=== PATIENT | male | born 1945 | race Caucasian/White ===

== ENCOUNTER 2020-04-08 17:00 | Inpatient (IN) | payer MEDICAID, MEDICARE ==
[~2020-04-08] VITALS: Ht 148 cm; Wt 61.7 kg
[2020-04-08] MEDS ORDERED: levETIRAcetam IV 500 MG in IV DEXTROSE 5% 100 ML IV ONE (17:30)
[2020-04-08] MEDS ORDERED: LORAZEPAM 2 MG/1 ML VIAL ONE ×2 (17:36→20:58)
[2020-04-08] MEDS ORDERED: LORAZEPAM 2 MG/1 ML VIAL IV ONE (17:45)
--- NOTE | 2020-04-08 18:04 | NUR ---
PT IS IN ROOM #2A. DR LAM EVALUATED THE PT.
[2020-04-08] MEDS ORDERED: ASCO500C18 PO (18:10)
[2020-04-08] MEDS ORDERED: CHOL10002 PO (18:10)
[2020-04-08] MEDS ORDERED: LORA-258 PO (18:10)
[2020-04-08] MEDS ORDERED: ALLO100T PO (18:10)
[2020-04-08] MEDS ORDERED: LEVE1000 PO (18:10)
[2020-04-08] MEDS ORDERED: FAMO-132 PO (18:10)
[2020-04-08] MEDS ORDERED: MELA3TAB41 PO (18:10)
[2020-04-08] MEDS ORDERED: ACET650S13 RC (18:10)
[2020-04-08] MEDS ORDERED: BISA10SU61 RC (18:10)
[2020-04-08] MEDS ORDERED: ATOR40TA PO (18:10)
[2020-04-08] MEDS ORDERED: CARV12.5 PO (18:10)
[2020-04-08] MEDS ORDERED: THIA100T13 PO (18:10)
[2020-04-08] MEDS ORDERED: ZINC1CAP2 PO (18:10)
[2020-04-08 18:11] LABS: BASOPHILS % (AUTO) 0.2 % (0.0-2.0); HEMATOCRIT 42.4 % (36.7-47.1); HEMOGLOBIN 13.4 g/dL (12.5-16.3); LYMPHOCYTES # (AUTO) 0.9 K/uL (20.0-40.0); LYMPHOCYTES % (AUTO) 4.3 % (20.5-51.5); MEAN CORPUSCULAR HGB CONC 32 g/dL (32.5-36.3); MEAN CORPUSCULAR VOLUME 94.6 fL (73.0-96.2); MONOCYTES # (AUTO) 1.1 K/uL (2.0-10.0); MONOCYTES % (AUTO) 5.7 % (0.0-11.0); NEUTROPHILS # (AUTO) 17.8 K/uL (1.8-8.9); NEUTROPHILS % (AUTO) 89.8 % (38.5-71.5); PLATELET COUNT (AUTO) 97 K/uL (152-348); RED BLOOD CELL COUNT(AUTO) 4.48 MIL/uL (4.06-5.63); WHITE BLOOD COUNT (AUTO) 19.8 K/uL (3.6-10.2)
[2020-04-08 18:20] LABS: CARBON DIOXIDE 17 mmol/L (21-32); CHLORIDE 105 mmol/L (98-107); CREATININE 2.6 mg/dL (0.6-1.3); GLUCOSE 151 mg/dL (74-106); POTASSIUM 4.5 mmol/L (3.5-5.1); UREA NITROGEN, BLOOD 27 mg/dL (7-18)
[2020-04-08 18:32] LABS: ALANINE AMINOTRANSFERASE 29 U/L (16-63); ALKALINE PHOSPHATASE 97 U/L (50-136); ASPARTATE AMINOTRANSFERASE 23 U/L (15-37); BILIRUBIN,TOTAL 0.5 mg/dL (0.2-1.0); TOTAL PROTEIN, SERUM 6.8 g/dL (6.4-8.2)
[2020-04-08] MEDS ORDERED: IV NORMAL SALINE 500 ML IV ONE ×2 (19:00→20:45)
[2020-04-08] MEDS ORDERED: PIPERACILLIN SODIUM/TAZOBACTAM 3.375 G in IV DEXTROSE 5% 50 ML IV ONE (19:00)
--- NOTE | 2020-04-08 19:04 | NUR ---
REPORT GIVEN TO WINDOWS DESKTOP ENGINEER MENDEZ MACDONALD.
[2020-04-08] MEDS ORDERED: PIPERACILLIN/TAZOBACTAM/D5W 50 ML IV ONE (19:10)
--- NOTE | 2020-04-08 20:31 | NUR ---
Report given to Marj SIMMS Medsurg.
[2020-04-08] MEDS ORDERED: FOSPHENYTOIN SODIUM 1,000 MG in IV NORMAL SALINE 100 ML IV ONE (21:00)
[2020-04-08] MEDS ORDERED: LORAZEPAM 2 MG/1 ML VIAL IV PRN (21:00)
[2020-04-08 21:12] LABS: *BLOOD, URINE NEGATIVE (NEGATIVE); *CLARITY,URINE CLEAR (CLEAR); *COLOR,URINE YELLOW (YELLOW); *KETONES,URINE 1+ (NEGATIVE); *UROBILINOGEN,URINE 0.2 E.U./dl (NORMAL); LEUKOCYTE ESTERASE ,URINE NEGATIVE (NEGATIVE); NITRITE, URINE NEGATIVE (NEGATIVE); PH,URINE 5.5 (5.0-8.0); UGLUCOSE NEGATIVE (NEGATIVE)
[2020-04-08 21:15] LABS: *BILIRUBIN,URIN 1+ (NEGATIVE)
[2020-04-08] MEDS ORDERED: PHENYTOIN SODIUM IV 1,000 MG in IV NORMAL SALINE 100 ML IV ONE (21:15)
[2020-04-08 21:18] LABS: BACTERIA,URINE FEW /HPF (NONE SEEN); RBC,URINE 0-3 /HPF (0-3); SQUAMOUS EPITHELIAL CELL,UR MANY /HPF (NONE SEEN); WBC,URINE 0-3 /HPF (0-3)
[2020-04-08] MEDS ORDERED: PHENYTOIN SODIUM 250 MG/5 ML VIAL IV ONE (21:24)
--- NOTE | 2020-04-08 22:00 | NUR ---
RECEIVED PT FROM ER VIA [facility]. UNDER THE CARE OF DR. FINNEGAN. PT IN 4L OXYGEN. DETENTION ASSESSMENT DONE. PT SKIN ISSUES PUT ON THE CHART. SAFETY AND COMFORT PROVIDED. ADMISSION PROCESS AND CARE PLAN INITIATED. WILL CONTINUE TO MONITOR.
[2020-04-08 23:07] VITALS: BP 110/68
[2020-04-09] MEDS ORDERED: VANCOMYCIN IV 1,000 MG in IV DEXTROSE 5% 250 ML IV ONE ×2 (00:15→21:00)
[2020-04-09] MEDS ORDERED: IV NS 1000 ML 1,000 ML IV SCH (00:15)
[2020-04-09] MEDS ORDERED: VANCOMYCIN IV 200 ML ONE (00:28)
[2020-04-09] MEDS ORDERED: PIPERACILLIN/TAZOBACTAM/D5W 50 ML IV ONE (00:48)
[2020-04-09 00:57] VITALS: BP 110/55
[2020-04-09 04:52] VITALS: BP 91/40
[2020-04-09] MEDS ORDERED: PIPERACILLIN SODIUM/TAZOBACTAM 3.375 G in IV DEXTROSE 5% 50 ML IV ONE (06:00)
[2020-04-09] MEDS ORDERED: BISACODYL 10 MG SUPP.RECT RC PRN (06:30)
[2020-04-09] MEDS ORDERED: LORAZEPAM 0.5 MG TABLET PO PRN (06:30)
[2020-04-09] MEDS: IV NS 1000 ML 1,000 ML IV PRN ×2 (06:32→12:58)
--- NOTE | 2020-04-09 06:45 | NUR ---
PT IN NO ACUTE RESPIRATORY DISTRESS. IV INTACT. PRESCRIBED MEDICATION GIVEN AND PT TOLERATED IT WELL. PT TURNED AND REPOSITIONED. SAFETY AND COMFORT PROVIDED. ALL NEEDS ARE MET. WILL ENDORSE TO INCOMING NURSE FOR CONTINUITY OF CARE.
[2020-04-09] MEDS ORDERED: FAMOTIDINE 20 MG TABLET PO SCH (07:30)
--- NOTE | 2020-04-09 08:41 | NUR ---
LACTIC ACID LEVEL IS 2.9 TRENDING DOWN TO DESIRED DIRECTION
[2020-04-09] MEDS ORDERED: PIPERACILLIN SODIUM/TAZOBACTAM 3.375 G in IV DEXTROSE 5% 50 ML IV SCH (09:00)
--- NOTE | 2020-04-09 09:00 | NUR ---
DR CONSTANTINO HERE TO SEE PATIENT WITH ORDER FOR ABG AND NOTED
[2020-04-09] MEDS: ASCORBIC ACID 500 MG TABLET PO SCH ×2 (09:12→21:20)
[2020-04-09] MEDS: ZINC SULFATE 220 MG CAPSULE PO SCH (09:13)
[2020-04-09] MEDS: FAMOTIDINE 20 MG TABLET PO SCH (09:13)
[2020-04-09] MEDS: CHOLECALCIFEROL 1,000 UNIT TABLET PO SCH (09:13)
[2020-04-09] MEDS: CARVEDILOL 12.5 MG TABLET PO SCH ×2 (09:14→21:20)
[2020-04-09] MEDS: levETIRAcetam 500 MG TABLET PO SCH ×2 (09:19→21:20)
[2020-04-09] MEDS: ALLOPURINOL 100 MG TABLET PO SCH (09:20)
[2020-04-09 09:39] LABS: BASOPHILS # (AUTO) 0.1 K/uL (0.0-8.0); LYMPHOCYTES # (AUTO) 1.7 K/uL (20.0-40.0); MEAN CORPUSCULAR HGB CONC 33 g/dL (32.5-36.3); MONOCYTES # (AUTO) 1.6 K/uL (2.0-10.0)
[2020-04-09 09:41] LABS: BASOPHILS % (AUTO) 0.5 % (0.0-2.0); EOSINOPHILS % (AUTO) 0.1 % (0.0-7.0); HEMATOCRIT 38.2 % (36.7-47.1); HEMOGLOBIN 12.5 g/dL (12.5-16.3); LYMPHOCYTES % (AUTO) 9.3 % (20.5-51.5); MEAN CORPUSCULAR VOLUME 94.5 fL (73.0-96.2); MONOCYTES % (AUTO) 8.7 % (0.0-11.0); NEUTROPHILS # (AUTO) 14.9 K/uL (1.8-8.9); NEUTROPHILS % (AUTO) 81.4 % (38.5-71.5); PLATELET COUNT (AUTO) 51 K/uL (152-348); RED BLOOD CELL COUNT(AUTO) 4.04 MIL/uL (4.06-5.63); WHITE BLOOD COUNT (AUTO) 18.3 K/uL (3.6-10.2)
[2020-04-09 09:52] LABS: ABG HCO3 17.7 mmol/L; ABG PCO2 30.1 mmHg (35.0-45.0); ABG PH 7.388 (7.350-7.450); ABG SITE LEFT RADIAL; ABG TOTAL HEMOGLOBIN 13.1 G/dL (13.5-18.0); COHb 0.5 % (0.5-1.5); MetHb 0.2 % (0.0-1.5); O2Hb 97.3 % (94.0-97.0); VENT MODE Nasal Cannula
[2020-04-09 09:55] LABS: CARBON DIOXIDE 22 mmol/L (21-32); CHLORIDE 113 mmol/L (98-107); CREATININE 1.6 mg/dL (0.6-1.3); GLUCOSE 71 mg/dL (74-106); MAGNESIUM 1.6 mg/dL (1.8-2.4); PHOSPHOROUS 3.3 mg/dL (2.5-4.9); POTASSIUM 4.7 mmol/L (3.5-5.1); UREA NITROGEN, BLOOD 29 mg/dL (7-18)
--- NOTE | 2020-04-09 10:21 | NUR ---
RESULT OF ABD WAS GIVEN TO DR CONSTANTINO BY THE RT WITH NO NEW ORDERS AT THIS TIME
[2020-04-09 10:32] LABS: BAND % (MANUAL) 2 % (0-10); LYMPHOCYTES % (MANUAL) 8 % (20-40); MONOCYTES % (MANUAL) 9 % (2-10); NEUTROPHILS % (MANUAL) 81 % (42-75)
--- NOTE | 2020-04-09 11:14 | NUR ---
Clinical Pharmacy Note: Vancomycin Dosing per Pharmacy Subjective: Vancomycin IV to start on this 74 yo patient for r/o sepsis Objective: BUN 29/Scr 1.6 WBC 18.3 Temperature 98.3 ht 123.8 cm wt 44.6 kg Assessment/Plan: Due to unstable srcr, will dose by random level. patient received vanco 1gm IVPB x1 today at 0100. Will check vanco random level tonight at 1800. Pharmacy will review & check vanco random level at 1800 & dose further if needed. Will follow daily. Addendum: 04/09/20 at 2051 by TESSIE LEWIS VANCOMYCIN LEVEL @ 1800 WAS 13.4. Will dose another Vancomycin 1 gm x 1 @ 2100 tonight.
[2020-04-09] MEDS ORDERED: DOSING BY PHARMACY-MD TO SPECIFY MED/ROUTE XX PRN (11:15)
[2020-04-09 12:03] VITALS: BP 93/65
[2020-04-09] MEDS ORDERED: MEROPENEM 500 MG in IV NORMAL SALINE 50 ML IV SCH (14:00)
[2020-04-09 16:03] VITALS: BP 102/51
--- NOTE | 2020-04-09 18:00 | NUR ---
PATIENT HAS TENDENCY TO REMOVE MASKS REAPPLIED HE IS ON FIRST STEP CHEN TURNED AND REPOSITIONED MADE COMFORTABLE
--- NOTE | 2020-04-09 19:30 | NUR ---
RECEIVED PT IN NO ACUTE DISTRESS. IV INTACT. SAFETY AND COMFORT PROVIDED. WILL CONTINUE TO MONITOR.
[2020-04-09 20:39] VITALS: BP 108/39
[2020-04-09] MEDS ORDERED: CEFEPIME HCL 1 G in IV DEXTROSE 5% 50 ML IV SCH (21:00)
[2020-04-09] MEDS: MELATONIN 3 MG TABLET PO SCH (21:20)
[2020-04-09] MEDS: ATORVASTATIN 40 MG TABLET PO SCH (21:20)
[2020-04-09] MEDS: THIAMINE HCL 100 MG TABLET PO SCH (21:20)
--- NOTE | 2020-04-09 23:00 | NUR ---
DR. GONZALEZ WAS NOTIFIED REGARDING THE RESULT OF THE COVID TEST IS NEGATIVE.
[2020-04-10] VITALS: BP 118/58
[2020-04-10] MEDS: IV NS 1000 ML 1,000 ML IV PRN ×2 (02:31→21:54)
[2020-04-10 05:00] VITALS: BP 120/59
--- NOTE | 2020-04-10 06:38 | NUR ---
PT IN NO ACUTE DISTRESS. PRESCRIBED MEDICATION GIVEN AND PT TOLERATED IT WELL. SAFETY AND COMFORT PROVIDED. PT TURNED AND REPOSITIONED. ALL NEEDS ARE MET. WILL ENDORSE TO INCOMING NURSE FOR CONTINUITY OF CARE.
[2020-04-10] MEDS: CHOLECALCIFEROL 1,000 UNIT TABLET PO SCH (08:25)
[2020-04-10] MEDS: levETIRAcetam 500 MG TABLET PO SCH ×2 (08:26→21:09)
[2020-04-10] MEDS: ZINC SULFATE 220 MG CAPSULE PO SCH (08:26)
[2020-04-10] MEDS: THIAMINE HCL 100 MG TABLET PO SCH ×2 (08:26→21:09)
[2020-04-10] MEDS: ASCORBIC ACID 500 MG TABLET PO SCH ×2 (08:27→21:10)
[2020-04-10] MEDS: FAMOTIDINE 20 MG TABLET PO SCH (08:27)
[2020-04-10] MEDS: ALLOPURINOL 100 MG TABLET PO SCH (08:27)
[2020-04-10] MEDS: CARVEDILOL 12.5 MG TABLET PO SCH ×2 (08:29→18:07)
[2020-04-10] MEDS ORDERED: CEFEPIME HCL 1 G in IV DEXTROSE 5% 50 ML IV ONE (10:00)
--- NOTE | 2020-04-10 11:22 | NUR ---
Clinical Pharmacy Note: Vancomycin Dosing per Pharmacy Subjective: Vancomycin IV to continue on this 74 yo patient for r/o sepsis Objective: BUN 29/Scr 1.6 (04/09) WBC 18.3 (04/09) Temperature 98.3 Vanco random level on 04/09 at 1800: 13.4 ht 123.8 cm wt 44.6 kg Assessment/Plan: Due to unstable srcr, will dose by random level. Patient received vanco 1gm IVPB x1 last night for vanco trough level of 13.4 mcg/ml. Per RN, patient hard stick & lab was unable to draw blood for labs.. Will check vanco random level tomorrow for further dosing. Will follow daily.
[2020-04-10 12:00] VITALS: BP 130/64
--- NOTE | 2020-04-10 18:57 | NUR ---
Received patient awake in bed in bed in stable condition. Respiratory mask change to nasal cannula at 4LPM. MD Garza notified. Patient remove IV site. dry paste supervisor made aware. For reinsertion of midline. not in distress. will continue monitor.no complaint/signs of pain/discomfort noted. afebrile. will continue monitor
--- NOTE | 2020-04-10 20:30 | NUR ---
Patient transferred from 2nd floor. Patient is awake. Patient has no s/s of SOB or respiratory distress. Patient has no s/s of pain. Patient is afebrile. Belonging list reviewed. Safety measures in place. Will continue with the plan of care.
[2020-04-10 20:55] VITALS: BP 114/82
[2020-04-10] MEDS: ATORVASTATIN 40 MG TABLET PO SCH (21:09)
[2020-04-10] MEDS: MELATONIN 3 MG TABLET PO SCH (21:10)
[2020-04-11 00:58] VITALS: BP 120/58
[2020-04-11 04:00] VITALS: BP 110/64
--- NOTE | 2020-04-11 06:25 | NUR ---
Pt in bed resting, In no acute signs of distress, No s/s of pain. Bed alarm on. IV fluids infusing, V pacing on tele/ HR 91.
[2020-04-11] MEDS: CARVEDILOL 12.5 MG TABLET PO SCH ×3 (08:00→17:23)
[2020-04-11 08:05] VITALS: BP 134/42
[2020-04-11] MEDS: THIAMINE HCL 100 MG TABLET PO SCH ×3 (08:34→21:13)
[2020-04-11] MEDS: levETIRAcetam 500 MG TABLET PO SCH ×2 (08:34→09:00)
[2020-04-11] MEDS: ZINC SULFATE 220 MG CAPSULE PO SCH ×2 (08:34→09:00)
[2020-04-11] MEDS: CHOLECALCIFEROL 1,000 UNIT TABLET PO SCH ×2 (08:35→09:00)
[2020-04-11] MEDS: ASCORBIC ACID 500 MG TABLET PO SCH ×3 (08:35→21:13)
[2020-04-11] MEDS: ALLOPURINOL 100 MG TABLET PO SCH ×2 (08:35→09:00)
[2020-04-11] MEDS ORDERED: CEFEPIME HCL 1 G in IV DEXTROSE 5% 50 ML IV SCH (09:00)
[2020-04-11] MEDS: FAMOTIDINE 20 MG TABLET PO SCH (09:00)
[2020-04-11 11:33] LABS: BASOPHILS # (AUTO) 0.1 K/uL (0.0-8.0); BASOPHILS % (AUTO) 0.4 % (0.0-2.0); EOSINOPHILS # (AUTO) 0.2 K/uL (0.0-0.7); EOSINOPHILS % (AUTO) 0.8 % (0.0-7.0); HEMATOCRIT 36.3 % (36.7-47.1); HEMOGLOBIN 11.6 g/dL (12.5-16.3); LYMPHOCYTES # (AUTO) 0.9 K/uL (20.0-40.0); LYMPHOCYTES % (AUTO) 5.1 % (20.5-51.5); MEAN CORPUSCULAR HEMOGLOBIN 30.3 uug (23.8-33.4); MEAN CORPUSCULAR HGB CONC 32 g/dL (32.5-36.3); MEAN CORPUSCULAR VOLUME 95.2 fL (73.0-96.2); MONOCYTES # (AUTO) 1.4 K/uL (2.0-10.0); MONOCYTES % (AUTO) 7.5 % (0.0-11.0); NEUTROPHILS # (AUTO) 15.9 K/uL (1.8-8.9); NEUTROPHILS % (AUTO) 86.2 % (38.5-71.5); PLATELET COUNT (AUTO) 55 K/uL (152-348); RED BLOOD CELL COUNT(AUTO) 3.81 MIL/uL (4.06-5.63); WHITE BLOOD COUNT (AUTO) 18.4 K/uL (3.6-10.2)
[2020-04-11 11:56] LABS: BILIRUBIN,TOTAL 0.6 mg/dL (0.2-1.0); CREATININE 1.2 mg/dL (0.6-1.3); MAGNESIUM 1.7 mg/dL (1.8-2.4); PHOSPHOROUS 2.9 mg/dL (2.5-4.9); POTASSIUM 4.1 mmol/L (3.5-5.1); TOTAL PROTEIN, SERUM 6.1 g/dL (6.4-8.2); VANCOMYCIN,RANDOM 13.7 ug/mL (18.0-26.0)
[2020-04-11 11:57] VITALS: BP 119/48
[2020-04-11 12:34] LABS: EOSINOPHILS % (MANUAL) 1 % (0-8); LYMPHOCYTES % (MANUAL) 7 % (20-40); MONOCYTES % (MANUAL) 4 % (2-10); NEUTROPHILS % (MANUAL) 88 % (42-75)
[2020-04-11] MEDS: levETIRAcetam IV 1,000 MG in IV DEXTROSE 5% 100 ML IV SCH ×2 (12:53→21:12)
[2020-04-11] MEDS: IV D5 1/2 NS 1000 ML 1,000 ML IV PRN (12:55)
[2020-04-11] MEDS: MAGNESIUM SULFATE/D5W 100 ML IV SCH ×2 (13:40→14:37)
--- NOTE | 2020-04-11 14:01 | NUR ---
Clinical Pharmacy Note: Vancomycin Dosing per Pharmacy Subjective: Vancomycin IV to continue on this 74 yo patient for sepsis Objective: BUN 26/Scr 1.2 WBC 18.4 Temperature 98.6 Vanco random level on 04/11 at 1045: 13.7(ordered at 0600 but hard stick, so tried again at 1045) ht 123.8 cm wt 44.6 kg Assessment/Plan: Due to unstable srcr, will continue to dose by random level. Since Vancomycin random level is under 20, will administer 750mg IV (scheduled to give at 1530 after magnesium IV) x1 today and draw another random tomorrow at 0600 with am labs. Will follow the level for further dosing.
[2020-04-11 15:01] VITALS: BP 111/50
[2020-04-11] MEDS ORDERED: VANCOMYCIN IV 750 MG in IV DEXTROSE 5% 250 ML IV ONE (15:30)
[2020-04-11] MEDS ORDERED: CARISOPRODOL 350 MG TABLET PO SCH (17:15)
--- NOTE | 2020-04-11 20:00 | NUR ---
RECEIVED PT VERBALLY NONRESPONSIVE, OPENS HER EYES TO ANY STIMULI & FOLLOWS TO COMMAND.ON O2 @ 4LNC W/ O2 SAT 94%.IVF D51/2NS @ 75CC/HR VIA MIDLINE ON [place]. REPOSITIONED W/ HOB ELEVATED.
[2020-04-11 20:12] VITALS: BP 124/58
--- NOTE | 2020-04-11 20:20 | NUR ---
CLINICAL PHARMACY NOTE:GENTAMICIN DOSING Request for gentamicin dosing on 74 y/o male 123.83cm 54.99kg for UTI Temp 98.6 BUN 26 Scr 1.2 WBC 18.4 urine culture ESBL E coli sensitive to gentamicin Start Gentamicin 60mg ivpb q12h estimated peak 6.2 trough 1.48. Will order trough and peak levels around 4 th dose. Will continue to monitor
[2020-04-11] MEDS: GENTAMICIN SULFATE INJ 60 MG in IV DEXTROSE 5% 50 ML IV SCH (21:11)
[2020-04-11] MEDS: ATORVASTATIN 40 MG TABLET PO SCH (21:12)
[2020-04-11] MEDS: MELATONIN 3 MG TABLET PO SCH (21:13)
--- NOTE | 2020-04-11 23:00 | NUR ---
HS CARE DONE ORAL CARE DONE. REPOSITIONED W/ HOB ELEVATED.
[2020-04-12 00:04] VITALS: BP 124/53
[2020-04-12 04:00] VITALS: BP 127/47
[2020-04-12] MEDS: IV D5 1/2 NS 1000 ML 1,000 ML IV PRN (05:31)
--- NOTE | 2020-04-12 06:00 | NUR ---
PT IS CONGESTED & GURGLING, SUCTIONED INTRANASALLY & ORALLY W/ BROWNISH MUCOUS MOD. AMT. ORAL CARE DONE. REPOSITIONED ON HIS SIDE W/ HOB ELEVATED.
--- NOTE | 2020-04-12 06:30 | NUR ---
CALLED DR. FINNEGAN EXCHANGE LEFT THE MESSAGE RE: THE COFFEE GROUND MUCOUS.
[2020-04-12 07:08] LABS: CREATININE 1.2 mg/dL (0.6-1.3); MAGNESIUM 2.1 mg/dL (1.8-2.4); POTASSIUM 3.3 mmol/L (3.5-5.1)
[2020-04-12 07:12] LABS: BASOPHILS # (AUTO) 0.1 K/uL (0.0-8.0); BASOPHILS % (AUTO) 0.7 % (0.0-2.0); EOSINOPHILS # (AUTO) 0.2 K/uL (0.0-0.7); HEMATOCRIT 36.5 % (36.7-47.1); HEMOGLOBIN 11.6 g/dL (12.5-16.3); LYMPHOCYTES # (AUTO) 0.8 K/uL (20.0-40.0); LYMPHOCYTES % (AUTO) 4.6 % (20.5-51.5); MEAN CORPUSCULAR HEMOGLOBIN 30.3 uug (23.8-33.4); MEAN CORPUSCULAR HGB CONC 32 g/dL (32.5-36.3); MEAN CORPUSCULAR VOLUME 95.3 fL (73.0-96.2); MONOCYTES # (AUTO) 1.1 K/uL (2.0-10.0); MONOCYTES % (AUTO) 6.4 % (0.0-11.0); NEUTROPHILS # (AUTO) 15.4 K/uL (1.8-8.9); NEUTROPHILS % (AUTO) 87.3 % (38.5-71.5); PLATELET COUNT (AUTO) 61 K/uL (152-348); RED BLOOD CELL COUNT(AUTO) 3.82 MIL/uL (4.06-5.63); WHITE BLOOD COUNT (AUTO) 17.7 K/uL (3.6-10.2)
--- NOTE | 2020-04-12 07:50 | NUR ---
Received patient in bed, open eyes. On 4L via nasal canula, saturating 96%. No sign of Pain or discomfort. IVF infusing well on [place] midline. Kept clean and comfortable. Will continue to monitor.
[2020-04-12 07:56] LABS: BAND % (MANUAL) 2 % (0-10); EOSINOPHILS % (MANUAL) 1 % (0-8); LYMPHOCYTES % (MANUAL) 9 % (20-40); MONOCYTES % (MANUAL) 6 % (2-10); NEUTROPHILS % (MANUAL) 82 % (42-75)
[2020-04-12] MEDS: FAMOTIDINE 20 MG TABLET PO SCH (09:07)
[2020-04-12] MEDS: CARVEDILOL 12.5 MG TABLET PO SCH ×2 (09:07→17:19)
[2020-04-12] MEDS: levETIRAcetam IV 1,000 MG in IV DEXTROSE 5% 100 ML IV SCH ×2 (09:07→20:28)
[2020-04-12] MEDS: THIAMINE HCL 100 MG TABLET PO SCH ×2 (09:08→20:28)
[2020-04-12] MEDS: ALLOPURINOL 100 MG TABLET PO SCH (09:08)
[2020-04-12] MEDS: CHOLECALCIFEROL 1,000 UNIT TABLET PO SCH (09:08)
[2020-04-12] MEDS: ASCORBIC ACID 500 MG TABLET PO SCH ×2 (09:08→20:28)
[2020-04-12] MEDS: ZINC SULFATE 220 MG CAPSULE PO SCH (09:08)
--- NOTE | 2020-04-12 09:30 | NUR ---
Patient noted with Poor PO intake, Dr. Upton made aware.
[2020-04-12] MEDS: GENTAMICIN SULFATE INJ 60 MG in IV DEXTROSE 5% 50 ML IV SCH ×2 (09:46→20:58)
[2020-04-12 11:29] VITALS: BP 124/50
[2020-04-12] MEDS ORDERED: POTASSIUM PHOSPHATE MM 7.5 MMOL in IV NORMAL SALINE 97.5 ML IV ONE (11:30)
--- NOTE | 2020-04-12 12:52 | NUR ---
CLINICAL PHARMACY NOTE:GENTAMICIN DOSING To continue gentamicin dosing on 74 y/o male 123.83cm 54.99kg for UTI (esbl e coli) Temp 98.3 BUN 18 Scr 1.2 WBC 17.7 urine culture ESBL E coli sensitive to gentamicin Will continue Gentamicin 60mg ivpb q12h estimated peak 6.2 trough 1.48. Will order trough and peak levels around 4 th dose, due tomorrow at 0830 and 1000 respectively. Will coordinate with RN/lab around tomorrow's dose and check levels when available. To adjust as appropriate following results. Will monitor
[2020-04-12 15:13] VITALS: BP 101/64
--- NOTE | 2020-04-12 18:04 | NUR ---
Patient in bed, open eyes, On oxygen at 3L via Nasal canula, saturating 94%. No signs of Pain or discomfort. Patient noted with congestion, Suctioned mouth PRN. Kept clean and comfortable. All due medications given as ordered. Will endorse to Oncoming Nurse.
--- NOTE | 2020-04-12 19:20 | NUR ---
Received patient lying in bed. Response non-verbally to tactile stimuli. In no acute distress. On O2 at 3LPM via NC in place. 100% V pacing on tele at 77/min. Left upper arm midline intact and patent. IVF infusing. No seizure episode noted at this time. Seizure precaution observed. Safety measure initiated and call ivory within reached.
[2020-04-12 20:09] VITALS: BP 119/51
[2020-04-12] MEDS: ATORVASTATIN 40 MG TABLET PO SCH (20:28)
[2020-04-12] MEDS: MELATONIN 3 MG TABLET PO SCH (20:29)
[2020-04-13 00:03] VITALS: BP 126/68
[2020-04-13 00:06] VITALS: BP 117/64
[2020-04-13] MEDS: IV D5 1/2 NS 1000 ML 1,000 ML IV PRN (00:14)
[2020-04-13 04:12] VITALS: BP 116/48
--- NOTE | 2020-04-13 06:07 | NUR ---
Non-verbally responsive and opens his eyes to tactile stimuli. In no acute distress. On O2 at 4LPM via NC in place. 100% V pacing on tele at 87/min. Left upper arm midline intact and patent. IVF infusing. o adverse reaction noted from IV ABX. No seizure episode noted at this time. Seizure precaution maintained. Aspiration precaution observed. Suction secretions PRN. Safety measure maintained and call ivory within reached.
[2020-04-13] MEDS ORDERED: GENTAMICIN SULFATE INJ 70 MG in IV DEXTROSE 5% 50 ML IV SCH (08:00)
--- NOTE | 2020-04-13 08:00 | NUR ---
Patient in bed, open eyes. Non Verbal. noted with congestion. Suctioned PRN. No signs of Pain or discomfort. Kept clean and comfortable. remains on Seizure Precaution. Will continue to monitor.
[2020-04-13] MEDS: CHOLECALCIFEROL 1,000 UNIT TABLET PO SCH (08:39)
[2020-04-13] MEDS: ALLOPURINOL 100 MG TABLET PO SCH (08:39)
[2020-04-13] MEDS: THIAMINE HCL 100 MG TABLET PO SCH (08:39)
[2020-04-13] MEDS: FAMOTIDINE 20 MG TABLET PO SCH (08:39)
[2020-04-13] MEDS: ASCORBIC ACID 500 MG TABLET PO SCH (08:39)
[2020-04-13] MEDS: ZINC SULFATE 220 MG CAPSULE PO SCH (08:39)
[2020-04-13] MEDS: CARVEDILOL 12.5 MG TABLET PO SCH ×2 (08:39→18:32)
[2020-04-13] MEDS: levETIRAcetam IV 1,000 MG in IV DEXTROSE 5% 100 ML IV SCH ×2 (08:49→20:15)
[2020-04-13] MEDS: GENTAMICIN SULFATE INJ 60 MG in IV DEXTROSE 5% 50 ML IV SCH (09:08)
[2020-04-13 09:18] LABS: BILIRUBIN,TOTAL 0.3 mg/dL (0.2-1.0); MAGNESIUM 1.8 mg/dL (1.8-2.4); POTASSIUM 3.4 mmol/L (3.5-5.1); TOTAL PROTEIN, SERUM 5.5 g/dL (6.4-8.2)
[2020-04-13 09:21] LABS: BASOPHILS # (AUTO) 0.1 K/uL (0.0-8.0); BASOPHILS % (AUTO) 0.5 % (0.0-2.0); EOSINOPHILS # (AUTO) 0.1 K/uL (0.0-0.7); EOSINOPHILS % (AUTO) 0.4 % (0.0-7.0); HEMOGLOBIN 11.4 g/dL (12.5-16.3); LYMPHOCYTES % (AUTO) 5.8 % (20.5-51.5); MEAN CORPUSCULAR HEMOGLOBIN 29.8 uug (23.8-33.4); MEAN CORPUSCULAR HGB CONC 32 g/dL (32.5-36.3); MONOCYTES # (AUTO) 0.9 K/uL (2.0-10.0); MONOCYTES % (AUTO) 5.2 % (0.0-11.0); NEUTROPHILS # (AUTO) 15.9 K/uL (1.8-8.9); NEUTROPHILS % (AUTO) 88.1 % (38.5-71.5); RED BLOOD CELL COUNT(AUTO) 3.83 MIL/uL (4.06-5.63)
[2020-04-13 10:12] LABS: BAND % (MANUAL) 5 % (0-10); LYMPHOCYTES % (MANUAL) 5 % (20-40); MONOCYTES % (MANUAL) 4 % (2-10); NEUTROPHILS % (MANUAL) 86 % (42-75)
[2020-04-13 10:22] LABS: PLATELET COUNT (AUTO) 62 K/uL (152-348)
--- NOTE | 2020-04-13 10:56 | NUR ---
CLINICAL PHARMACY NOTE:GENTAMICIN DOSING S: To continue gentamicin dosing on 74 y/o male for UTI (esbl e coli) O: Temp 98.3 BUN 11 Scr 1.0 WBC 18 Gentamicin trough level on 04/13 at 0830: 2.8 Gentamicin Peak level on 04/13 at 1000: 8.4 ht 124cm wt 56 kg urine culture ESBL E coli sensitive to gentamicin Plan Since gentamicin trough is supra-therapeutic, will change dose to Gentamicin 70 mg IVPB q23h for estimated peak of 6.8 mcg/ml & trough of 0.98 mcg/ml at steady state. 1st dose tomorrow at 1100. Will order trough and peak levels around 3rd dose (not yet ordered). Will monitor
[2020-04-13 11:47] VITALS: BP 99/43
[2020-04-13] MEDS ORDERED: POTASSIUM PHOSPHATE MM 15 MMOL in IV NORMAL SALINE 250 ML IV ONE (13:00)
--- NOTE | 2020-04-13 14:00 | NUR ---
Seen by Dr burden and relayed that ST seen patient with recommendation to keep patient NPO and may insert NGT.
[2020-04-13 15:34] VITALS: BP 106/55
--- NOTE | 2020-04-13 16:00 | NUR ---
Patient with RD recommendation regarding NGT Feeding, Glucerna 1.2 at 60cc/hr x 22 hours.
[2020-04-13] MEDS: POTASSIUM CHLORIDE 40 MEQ in IV D5 1/2 NS 1000 ML 1,000 ML IV PRN (17:08)
--- NOTE | 2020-04-13 18:20 | NUR ---
Received a confirmed NGT placement form ROSETTE, started NGT Feeding.
[2020-04-13] MEDS: GLUCERNA 1.2 1000ML LIQUID NG PRN (18:28)
--- NOTE | 2020-04-13 18:39 | NUR ---
Patient in bed, open eyes. Suctioned PRN for secretion and congestion. Saturating 94% on 4L via Nasal Canula. No signs of Pain or discomfort. Afebrile. All due medications given as ordered. Kept clean and comfortable. Will endorse to Oncoming Nurse.
--- NOTE | 2020-04-13 19:20 | NUR ---
Received patient lying in bed. Response non-verbally to tactile stimuli, only mumbles at times. In no acute distress. On O2 at 4LPM via NC in place. 100% V pacing on tele at 87/min. Left upper arm midline intact and patent. IVF infusing. NGT intact and patent. Glucerna 1.2 at 60/min infusing via NGT. No seizure episode noted at this time. Seizure precaution observed. Safety measure initiated and call ivory within reached.
[2020-04-13] MEDS ORDERED: LORAZEPAM 0.5 MG TABLET NG PRN (19:55)
[2020-04-13 20:08] VITALS: BP 124/59
[2020-04-13] MEDS: THIAMINE HCL 100 MG TABLET NG SCH (20:15)
[2020-04-13] MEDS: ATORVASTATIN 40 MG TABLET NG SCH (20:16)
[2020-04-13] MEDS: ASCORBIC ACID 500 MG TABLET NG SCH (20:16)
[2020-04-13] MEDS: MELATONIN 3 MG TABLET NG SCH (20:16)
[2020-04-14 00:08] VITALS: BP 121/61
[2020-04-14 04:12] VITALS: BP 127/74
--- NOTE | 2020-04-14 05:07 | NUR ---
photonics engineering technologist/[place] at bedside for CXR.
--- NOTE | 2020-04-14 06:08 | NUR ---
Response non-verbally to tactile stimuli, only mumbles at times. In no acute distress. On O2 at 4LPM via NC in place. O2 sat at 92%. 100% V pacing on tele at 96/min. Left upper arm midline intact and patent. IVF infusing. NGT intact and patent. Glucerna 1.2 at 60/min infusing via NGT. Suction secretions PRN. HOB kept elevated. Aspiration precaution maintained. No seizure episode noted at this time. Seizure precaution maintained. Safety measure maintained and call ivory within reached.
--- NOTE | 2020-04-14 07:30 | NUR ---
RECIEVED PT LYING IN BED, SLIGHTLY OBTUNDED BUT OPENS EYES TO DEEP PAIN AND SUCTIONING. HR IS 100% V PACED WITH UNDERLYING SR. PT HAS VERY AUDIBLE INSPIRATORY AND EXPIRATORY CRACLES, MORE OF THROATY NOICE. SUCTION SECRETIONS ORALLY AAND OBTAINED LARGE AMOUNT OF WHITISH LIQUIDS THAT LOOKS LIKE THE FEEDING. O2 SATURATION IS 98% ON 4L, DECREASED IT DOWN TO 2L AND STILL SATURATING 99%. AFEBRILE. PT IS GENERALLY WEAK.
[2020-04-14 07:53] LABS: BASOPHILS % (AUTO) 0.2 % (0.0-2.0); EOSINOPHILS # (AUTO) 0.3 K/uL (0.0-0.7); EOSINOPHILS % (AUTO) 1.5 % (0.0-7.0); HEMATOCRIT 39.7 % (36.7-47.1); HEMOGLOBIN 12.6 g/dL (12.5-16.3); LYMPHOCYTES # (AUTO) 0.9 K/uL (20.0-40.0); LYMPHOCYTES % (AUTO) 5.5 % (20.5-51.5); MEAN CORPUSCULAR HEMOGLOBIN 30.1 uug (23.8-33.4); MEAN CORPUSCULAR HGB CONC 32 g/dL (32.5-36.3); MEAN CORPUSCULAR VOLUME 94.4 fL (73.0-96.2); MONOCYTES # (AUTO) 0.8 K/uL (2.0-10.0); MONOCYTES % (AUTO) 4.8 % (0.0-11.0); NEUTROPHILS # (AUTO) 15.1 K/uL (1.8-8.9); PLATELET COUNT (AUTO) 60 K/uL (152-348); WHITE BLOOD COUNT (AUTO) 17.1 K/uL (3.6-10.2)
[2020-04-14 08:22] LABS: CREATININE 1.1 mg/dL (0.6-1.3); MAGNESIUM 1.7 mg/dL (1.8-2.4); PHOSPHOROUS 2.9 mg/dL (2.5-4.9); POTASSIUM 4.2 mmol/L (3.5-5.1)
[2020-04-14 08:30] VITALS: BP 160/55
--- NOTE | 2020-04-14 08:30 | NUR ---
PT HAS NGT ON THE LEFT NARES, IN PLACE. ABDOMEN IS DISTENDED AND HYPOACTIVE. CHHECKED RESIDUALS AND OBTAAINED ABOUT 400 ML OF FEEDING TUBE LIQUIDS. HOLD THE TUBE FEEDING AND MD IS AWARE.
[2020-04-14] MEDS: ALLOPURINOL 100 MG TABLET NG SCH (08:49)
[2020-04-14] MEDS: ZINC SULFATE 220 MG CAPSULE NG SCH (08:49)
[2020-04-14] MEDS: FAMOTIDINE 20 MG TABLET NG SCH (08:49)
[2020-04-14] MEDS: THIAMINE HCL 100 MG TABLET NG SCH ×2 (08:50→20:39)
[2020-04-14] MEDS: CHOLECALCIFEROL 1,000 UNIT TABLET NG SCH (08:50)
[2020-04-14] MEDS: ASCORBIC ACID 500 MG TABLET NG SCH ×2 (08:50→20:39)
[2020-04-14] MEDS: levETIRAcetam IV 1,000 MG in IV DEXTROSE 5% 100 ML IV SCH ×2 (08:51→20:39)
[2020-04-14] MEDS: CARVEDILOL 12.5 MG TABLET NG SCH ×2 (08:51→17:38)
--- NOTE | 2020-04-14 10:30 | NUR ---
CLINICAL PHARMACY NOTE:GENTAMICIN DOSING S: To continue gentamicin dosing on 74 y/o male for UTI (esbl e coli) O: Temp 98.1 BUN 10 Scr 1.1 WBC 17.1 Gentamicin trough level on 04/13 at 0830: 2.8 Gentamicin Peak level on 04/13 at 1000: 8.4 ht 124cm wt 56 kg urine culture ESBL E coli sensitive to gentamicin Plan Will continue same dose of Gentamicin 70 mg IVPB q23h for estimated peak of 6.8 mcg/ml & trough of 0.98 mcg/ml at steady state. 1st dose today at 1100. Will order trough and peak levels around 3rd dose (ordered for 04/16 at 0830 & 1000- pharmacist to communicate to nurse/lab). Will monitor
[2020-04-14] MEDS: POTASSIUM CHLORIDE 40 MEQ in IV D5 1/2 NS 1000 ML 1,000 ML IV PRN (10:44)
--- NOTE | 2020-04-14 11:00 | NUR ---
MAGNESIUM CHLORIDE 2 GMS IVPB GIVEN REPLACEMENT PER MD ORDER. PT IS REPOSITIONED AT FREQUENT INTERVALS.
[2020-04-14] MEDS: MAGNESIUM SULFATE/D5W 100 ML IV SCH ×2 (11:20→13:02)
[2020-04-14] MEDS: GENTAMICIN SULFATE INJ 70 MG in IV DEXTROSE 5% 50 ML IV SCH (11:21)
[2020-04-14 12:00] VITALS: BP 120/56
[2020-04-14 16:14] VITALS: BP 103/57
--- NOTE | 2020-04-14 17:30 | NUR ---
RESTARTED THE TUBE FEEDING AT 20ML/HR AT THIS TIME.
[2020-04-14] MEDS ORDERED: PIPERACILLIN SODIUM/TAZOBACTAM 3.375 G in IV DEXTROSE 5% 50 ML IV SCH (18:30)
[2020-04-14] MEDS: PIPERACILLIN/TAZOBACTAM/D5W 3.375 G in IV DEXTROSE 5% 50 ML IV SCH (19:47)
--- NOTE | 2020-04-14 20:00 | NUR ---
RECEIVED VERBALLY NONRESPONSIVE W/ GOOD EYE CONTACT. ON O2 @ 2LNC W/ O2 SAT OF 97%. IVF D51/NS W/ 40MEQ KCL @ 75CC/HR VIA MIDLINE ON [place]. NGT ON L NARE CHECKED PLACEMENT & CHECKED RESIDUAL 10CC NOTED TUBE FDG OF GLUCERNA 1.2 @ 20CC/HR.. REPOSITIONED PT ON HER SIDE AFTER CLEANED, INCONT OF URINE, NO BM NOTED.
[2020-04-14 20:38] VITALS: BP 112/72
[2020-04-14] MEDS: ATORVASTATIN 40 MG TABLET NG SCH (20:39)
[2020-04-14] MEDS: MELATONIN 3 MG TABLET NG SCH (20:40)
--- NOTE | 2020-04-14 23:00 | NUR ---
SUCTIONED PT INTRANASALLY & ORALLY W/ THICK YELLOWISH BLOOD TINGED MUCOUS MOD. AMT. REPOSITIONED W/ HOB ELEVATED CONT.
--- NOTE | 2020-04-15 | NUR ---
CHECKED NGT RESIDUAL 5CC NOTED, INCREASED TUBE FDG RATE TO 30CC/HR.
[2020-04-15 00:15] VITALS: BP 120/48
[2020-04-15] MEDS: POTASSIUM CHLORIDE 40 MEQ in IV D5 1/2 NS 1000 ML 1,000 ML IV PRN (03:53)
[2020-04-15 04:00] VITALS: BP 124/76
[2020-04-15] MEDS: PIPERACILLIN/TAZOBACTAM/D5W 3.375 G in IV DEXTROSE 5% 50 ML IV SCH ×3 (04:13→20:15)
--- NOTE | 2020-04-15 06:00 | NUR ---
SUCTIONED ORALLY & INTRANASALLY W/ MOD THICK YELLOWISH MUCOUS.
[2020-04-15 07:21] LABS: BASOPHILS # (AUTO) 0.1 K/uL (0.0-8.0); BASOPHILS % (AUTO) 0.5 % (0.0-2.0); EOSINOPHILS # (AUTO) 0.3 K/uL (0.0-0.7); EOSINOPHILS % (AUTO) 1.7 % (0.0-7.0); HEMATOCRIT 36.8 % (36.7-47.1); HEMOGLOBIN 11.8 g/dL (12.5-16.3); LYMPHOCYTES # (AUTO) 0.9 K/uL (20.0-40.0); LYMPHOCYTES % (AUTO) 5.6 % (20.5-51.5); MEAN CORPUSCULAR HEMOGLOBIN 30.2 uug (23.8-33.4); MEAN CORPUSCULAR HGB CONC 32 g/dL (32.5-36.3); MEAN CORPUSCULAR VOLUME 94.5 fL (73.0-96.2); MONOCYTES # (AUTO) 0.8 K/uL (2.0-10.0); MONOCYTES % (AUTO) 4.6 % (0.0-11.0); NEUTROPHILS # (AUTO) 14.9 K/uL (1.8-8.9); NEUTROPHILS % (AUTO) 87.6 % (38.5-71.5); PLATELET COUNT (AUTO) 86 K/uL (152-348)
[2020-04-15 07:38] LABS: CREATININE 1.1 mg/dL (0.6-1.3); MAGNESIUM 2.1 mg/dL (1.8-2.4); PHOSPHOROUS 1.9 mg/dL (2.5-4.9); POTASSIUM 5.4 mmol/L (3.5-5.1)
[2020-04-15 08:00] VITALS: BP 141/72
--- NOTE | 2020-04-15 08:30 | NUR ---
PT IS RESTING COMFORTABLY. OPENS EYES ONLY BUT NON VERBAL. HR [id number]% NO APPARENT RESPIRATORY DISTRESS NOTED. SUCTION SECRETIONS ORALLY LARGE AMOUNT.
[2020-04-15 08:39] LABS: BAND % (MANUAL) 1 % (0-10); LYMPHOCYTES % (MANUAL) 9 % (20-40); NEUTROPHILS % (MANUAL) 85 % (42-75)
[2020-04-15 08:40] LABS: EOSINOPHILS % (MANUAL) 1 % (0-8); MONOCYTES % (MANUAL) 4 % (2-10)
[2020-04-15] MEDS: FAMOTIDINE 20 MG TABLET NG SCH (09:28)
[2020-04-15] MEDS: THIAMINE HCL 100 MG TABLET NG SCH ×2 (09:29→21:04)
[2020-04-15] MEDS: CARVEDILOL 12.5 MG TABLET NG SCH ×2 (09:29→18:29)
[2020-04-15] MEDS: ZINC SULFATE 220 MG CAPSULE NG SCH (09:29)
[2020-04-15] MEDS: CHOLECALCIFEROL 1,000 UNIT TABLET NG SCH (09:29)
[2020-04-15] MEDS: ASCORBIC ACID 500 MG TABLET NG SCH ×2 (09:29→21:04)
[2020-04-15] MEDS: ALLOPURINOL 100 MG TABLET NG SCH (09:29)
[2020-04-15] MEDS: levETIRAcetam IV 1,000 MG in IV DEXTROSE 5% 100 ML IV SCH ×2 (09:31→20:58)
[2020-04-15] MEDS: GENTAMICIN SULFATE INJ 70 MG in IV DEXTROSE 5% 50 ML IV SCH (09:31)
[2020-04-15] MEDS: IV D5 1/2 NS 1000 ML 1,000 ML IV PRN (09:56)
--- NOTE | 2020-04-15 10:39 | NUR ---
CLINICAL PHARMACY NOTE:GENTAMICIN DOSING S: To continue gentamicin dosing on 74 y/o male for UTI (esbl e coli) O: Temp 98.1 BUN 10 Scr 1.1 WBC 17.0 Gentamicin trough level on 04/13 at 0830: 2.8 Gentamicin Peak level on 04/13 at 1000: 8.4 ht 124cm wt 56 kg urine culture ESBL E coli sensitive to gentamicin Plan Will continue same dose of Gentamicin 70 mg IVPB q23h for estimated peak of 6.8 mcg/ml & trough of 0.98 mcg/ml at steady state. 2nd dose today at 1000. Will order trough and peak levels around 3rd dose (ordered for 04/16 at 0830 & 1000- pharmacist to communicate to nurse/lab in am). Will monitor
[2020-04-15 12:00] VITALS: BP 128/57
[2020-04-15] MEDS ORDERED: DEXTROSE 5% IV ONE (15:15)
[2020-04-15] MEDS ORDERED: SODIUM PHOSPHATE MM IV ONE (15:15)
[2020-04-15 16:00] VITALS: BP 121/58
--- NOTE | 2020-04-15 18:30 | NUR ---
SEEN AND EXAMINED BY CARMEN LEBLANC TO REPEAT URINE CULTURE. ENDORSED IT TO THE NIGHT RN.
[2020-04-15 20:07] VITALS: BP 104/65
[2020-04-15] MEDS: ATORVASTATIN 40 MG TABLET NG SCH (21:04)
[2020-04-15] MEDS: MELATONIN 3 MG TABLET NG SCH (21:04)
[2020-04-16 00:08] VITALS: BP 110/68
[2020-04-16] MEDS: PIPERACILLIN/TAZOBACTAM/D5W 3.375 G in IV DEXTROSE 5% 50 ML IV SCH ×3 (03:50→20:58)
[2020-04-16 06:36] VITALS: BP 112/74
[2020-04-16 07:00] LABS: BASOPHILS % (AUTO) 0.2 % (0.0-2.0); EOSINOPHILS # (AUTO) 0.4 K/uL (0.0-0.7); EOSINOPHILS % (AUTO) 2.2 % (0.0-7.0); HEMATOCRIT 36.8 % (36.7-47.1); HEMOGLOBIN 11.8 g/dL (12.5-16.3); LYMPHOCYTES # (AUTO) 0.7 K/uL (20.0-40.0); LYMPHOCYTES % (AUTO) 4.5 % (20.5-51.5); MEAN CORPUSCULAR HGB CONC 32 g/dL (32.5-36.3); MEAN CORPUSCULAR VOLUME 93.8 fL (73.0-96.2); MONOCYTES # (AUTO) 0.8 K/uL (2.0-10.0); MONOCYTES % (AUTO) 5.3 % (0.0-11.0); NEUTROPHILS # (AUTO) 13.8 K/uL (1.8-8.9); NEUTROPHILS % (AUTO) 87.8 % (38.5-71.5); PLATELET COUNT (AUTO) 61 K/uL (152-348); RED BLOOD CELL COUNT(AUTO) 3.92 MIL/uL (4.06-5.63); WHITE BLOOD COUNT (AUTO) 15.7 K/uL (3.6-10.2)
[2020-04-16 07:07] LABS: CREATININE 1.2 mg/dL (0.6-1.3); MAGNESIUM 1.8 mg/dL (1.8-2.4); PHOSPHOROUS 3.6 mg/dL (2.5-4.9); POTASSIUM 4.5 mmol/L (3.5-5.1)
--- NOTE | 2020-04-16 07:30 | NUR ---
RECEIVED PATIENT IN BED WITH HOB ELEVATED AND ASLEEP,. PATIENT HAS NGTUBE AND ON TUBE FEEDING WITH GLUCERNA 1.2 AT 40 ML/HR AND ABLE TO TOLERATE WELL WITH TUBE FEEDING. NO SOB NOTED AT THIS TIME. KEPT CLEAN AND DRY AT ALL TIMES. SAFETY AND COMFORT PROVIDED. NO C/O PAIN AT THIS TIME. WILL CONTINUE TO MONITOR.
[2020-04-16] MEDS: levETIRAcetam IV 1,000 MG in IV DEXTROSE 5% 100 ML IV SCH ×2 (08:31→21:32)
[2020-04-16] MEDS: ASCORBIC ACID 500 MG TABLET NG SCH ×2 (08:31→21:52)
[2020-04-16] MEDS: THIAMINE HCL 100 MG TABLET NG SCH ×2 (08:32→21:51)
[2020-04-16] MEDS: CHOLECALCIFEROL 1,000 UNIT TABLET NG SCH (08:32)
[2020-04-16] MEDS: ZINC SULFATE 220 MG CAPSULE NG SCH (08:32)
[2020-04-16] MEDS: FAMOTIDINE 20 MG TABLET NG SCH (08:32)
[2020-04-16] MEDS: ALLOPURINOL 100 MG TABLET NG SCH (08:32)
[2020-04-16] MEDS: CARVEDILOL 12.5 MG TABLET NG SCH ×2 (08:46→17:10)
[2020-04-16] MEDS: GENTAMICIN SULFATE INJ 70 MG in IV DEXTROSE 5% 50 ML IV SCH (09:00)
[2020-04-16] MEDS: GLUCERNA 1.2 1000ML LIQUID NG PRN (09:07)
[2020-04-16 12:00] VITALS: BP 120/67
[2020-04-16] MEDS: IV D5 1/2 NS 1000 ML 1,000 ML IV PRN (13:16)
--- NOTE | 2020-04-16 14:35 | NUR ---
CLINICAL PHARMACY NOTE:GENTAMICIN DOSING S: To continue gentamicin dosing on 74 y/o male for UTI (esbl e coli) O: Temp 97.9 BUN 13 Scr 1.2 WBC 15.7 Gentamicin trough level on 04/13 at 0830: 2.8 Gentamicin Peak level on 04/13 at 1000: 8.4 Gentamicin trough level 04/16 @ 0830: 1.2 Gentamicin peak level on 04/16 @ 1000: 8.2 ht 124cm wt 56 kg urine culture ESBL E coli sensitive to gentamicin Plan Based on levels, adjusted gentamicin regimen to 50mg q22hr for new estimated trough and peak of 6.2 and 0.9 respectively. First dose will be tomorrow 04/17 @0800. Will follow and order peak and trough at 3rd dose (not ordered yet). Will follow
[2020-04-16 15:18] VITALS: BP 112/67
--- NOTE | 2020-04-16 18:13 | NUR ---
PATIENT IN BED WITH HOB ELEVATED AND ASLEEP. PATIENT HAS NGTUBE AND ON TUBE FEEDING WITH GLUCERNA 1.2 at 40 ML/HR , INCREASED IT TO 50ML/HR AND ABLE TO TOLERATE WELL WITH TUBE FEEDING. NO SOB NOTED AT THIS TIME. PROVIDED SUCTION NEEDED. KEPT CLEAN AND DRY AT ALL TIMES. SAFETY AND COMFORT PROVIDED. NO C/O PAIN AT THIS TIME. WILL CONTINUE TO MONITOR.
[2020-04-16 20:21] VITALS: BP 113/54
--- NOTE | 2020-04-16 20:30 | NUR ---
Patient pulled out his NGT. Charge nurse made aware and reinserted new NGT x 1 attempt w/ no complications. Will order xray to confirm placement
--- NOTE | 2020-04-16 20:31 | NUR ---
Patient also noted congested w/ a lot of secretions, deep suctioning done by RT. Patient noted relieved
--- NOTE | 2020-04-16 20:50 | NUR ---
Patient's CXR came back and confirmed proper placement of NGT. NGT feeding Glucerna 1.2 @ 60cc/hr restarted. HOB kept elevated for aspiration precautions. Patient noted w/ a lot of secretions in his mouth, frequent suctioning and oral care done.
[2020-04-16] MEDS: ATORVASTATIN 40 MG TABLET NG SCH (21:51)
[2020-04-16] MEDS: MELATONIN 3 MG TABLET NG SCH (21:51)
[2020-04-17 00:06] VITALS: BP 106/48
[2020-04-17] MEDS: IV D5 1/2 NS 1000 ML 1,000 ML IV PRN (01:46)
[2020-04-17] MEDS: PIPERACILLIN/TAZOBACTAM/D5W 3.375 G in IV DEXTROSE 5% 50 ML IV SCH ×3 (03:37→20:06)
[2020-04-17 04:43] VITALS: BP 110/64
--- NOTE | 2020-04-17 06:38 | NUR ---
Patient slept intermittently. On O2 at 2lpm via NC, saturating at 97%. Vpacing on Tele monitor. NGT feeding tolerated well. [place] midline intact and patent w/ IVF infusing. Oral care and suctioning done. Turned and repositioned. Will endorse accordingly
--- NOTE | 2020-04-17 07:30 | NUR ---
RECEIVED PATIENT IN BED WITH HOB ELEVATED AND ASLEEP. PATIENT HAS NEW NG TUBE INSERTED AND ON TUBE FEEDING WITH GLUCERNA 1.2 RUNNING AT 60 ML/HR AND ABLE TO TOLERATE WELL. NO SOB NOTED AT THIS TIME. NO C/O PAIN AT THIS TIME. AFEBRILE. KEPT CLEAN AND DRY AT ALL TIMES. SAFETY AND COMFORT PROVIDED. NO C/O PAIN AT THIS TIME. WILL CONTINUE TO MONITOR.
[2020-04-17] MEDS: GENTAMICIN SULFATE IV SCH (07:56)
[2020-04-17] MEDS: DEXTROSE 5% IV SCH (07:56)
[2020-04-17] MEDS: ALLOPURINOL 100 MG TABLET NG SCH (08:00)
[2020-04-17] MEDS: CHOLECALCIFEROL 1,000 UNIT TABLET NG SCH (08:00)
[2020-04-17] MEDS: THIAMINE HCL 100 MG TABLET NG SCH ×2 (08:00→20:06)
[2020-04-17] MEDS: ASCORBIC ACID 500 MG TABLET NG SCH ×2 (08:00→20:07)
[2020-04-17] MEDS: ZINC SULFATE 220 MG CAPSULE NG SCH (08:00)
[2020-04-17] MEDS: CARVEDILOL 12.5 MG TABLET NG SCH ×2 (08:00→17:39)
[2020-04-17] MEDS: FAMOTIDINE 20 MG TABLET NG SCH (08:00)
[2020-04-17] MEDS: levETIRAcetam IV 1,000 MG in IV DEXTROSE 5% 100 ML IV SCH ×2 (08:49→20:06)
--- NOTE | 2020-04-17 08:58 | NUR ---
CLINICAL PHARMACY NOTE:GENTAMICIN DOSING S: To continue gentamicin dosing on 74 y/o male for UTI (esbl e coli) O: Temp 98 BUN 13 (04/16) Scr 1.2 (04/16) WBC 15.7 (04/16) Gentamicin trough level on 04/13 at 0830: 2.8 Gentamicin Peak level on 04/13 at 1000: 8.4 Gentamicin trough level 04/16 @ 0830: 1.2 Gentamicin peak level on 04/16 @ 1000: 8.2 ht 124cm wt 56 kg urine culture ESBL E coli sensitive to gentamicin Plan Will continue same dose of gentamicin 50mg IVPB q22hr for new estimated trough and peak of 6.2 and 0.9 respectively. 2nd dose will be tomorrow 04/18 @0600. Will follow and order peak and trough at 3rd dose (not ordered yet). Will follow
[2020-04-17 11:40] VITALS: BP 115/67
[2020-04-17] MEDS: GLUCERNA 1.2 1000ML LIQUID NG PRN (12:18)
[2020-04-17 15:33] VITALS: BP 132/66
--- NOTE | 2020-04-17 18:06 | NUR ---
PATIENT IN BED WITH HOB ELEVATED WITH NG TUBE AND TUBE FEEDING WITH GLUCERNA 1.2 RUNNING AT 60 ML/HR AND ABLE TO TOLERATE WELL. NO SOB NOTED AT THIS TIME. SUCTION NEEDED DUE TO SECRETIONS. NO C/O PAIN AT THIS TIME. AFEBRILE. KEPT CLEAN AND DRY AT ALL TIMES. SAFETY AND COMFORT PROVIDED. NO C/O PAIN AT THIS TIME. WILL CONTINUE TO MONITOR
--- NOTE | 2020-04-17 19:20 | NUR ---
Patient received in bed, sleeping, easy to arouse. Patient has no s/s of acute distress. Patient has no s/s of pain. Patient is on NGT glucerna 1.2 running at 60cc. Patient is on 2L NC setting at 95%. Patient has Left upper midline, patent and intact. Vitals are stable. Safety measures in place. Bed low and locked position. Will continue with the plan of care.
[2020-04-17 20:00] VITALS: BP 112/61
[2020-04-17] MEDS: FLUCONAZOLE 100 MG TABLET PO SCH (20:07)
[2020-04-17] MEDS: ATORVASTATIN 40 MG TABLET NG SCH (20:07)
[2020-04-17] MEDS: MELATONIN 3 MG TABLET NG SCH (20:07)
[2020-04-18] VITALS: BP 109/51
[2020-04-18] MEDS: PIPERACILLIN/TAZOBACTAM/D5W 3.375 G in IV DEXTROSE 5% 50 ML IV SCH ×3 (03:13→20:27)
[2020-04-18 04:00] VITALS: BP 136/71
--- NOTE | 2020-04-18 06:28 | NUR ---
Patient pulled out NGT. Attempted to reinsert x1 but unsuccessful. Dr. Maldonado here and made aware and said will try to talk to family for possible PEG placement. Patient failed his previous Swallow eval as per ST.
--- NOTE | 2020-04-18 06:39 | NUR ---
Patient slept intermittently throughout the night. Patient is awake, no s/s of acute distress or pain. Patient is on 3L NC and setting WNL. Patient's vitals stable. L upper midline is patent and intact. Incontinence care provided. Needs attended. Safety measure in place. Bed low and locked in position. Will endorse to the oncoming nurse accordingly.
[2020-04-18] MEDS: DEXTROSE 5% IV SCH (06:42)
[2020-04-18] MEDS: GENTAMICIN SULFATE IV SCH (06:42)
--- NOTE | 2020-04-18 07:20 | NUR ---
Reinserted JEFERSON taylor Fr 16 tube on right nares without any issues. Ordered CXR for placement. Addendum: 04/18/20 at 0801 by FRANCIA GRESHAM RN inserted to 70cm
[2020-04-18] MEDS: CARVEDILOL 12.5 MG TABLET NG SCH ×2 (08:00→18:35)
[2020-04-18 08:13] LABS: BASOPHILS # (AUTO) 0.1 K/uL (0.0-8.0); BASOPHILS % (AUTO) 0.2 % (0.0-2.0); EOSINOPHILS % (AUTO) 0.2 % (0.0-7.0); HEMATOCRIT 33.1 % (36.7-47.1); LYMPHOCYTES # (AUTO) 0.8 K/uL (20.0-40.0); MEAN CORPUSCULAR HEMOGLOBIN 30.4 uug (23.8-33.4); MEAN CORPUSCULAR HGB CONC 33 g/dL (32.5-36.3); MEAN CORPUSCULAR VOLUME 91.1 fL (73.0-96.2); MONOCYTES # (AUTO) 1.8 K/uL (2.0-10.0); NEUTROPHILS # (AUTO) 22.7 K/uL (1.8-8.9); NEUTROPHILS % (AUTO) 89.6 % (38.5-71.5); PLATELET COUNT (AUTO) 114 K/uL (152-348); RED BLOOD CELL COUNT(AUTO) 3.64 MIL/uL (4.06-5.63); WHITE BLOOD COUNT (AUTO) 25.4 K/uL (3.6-10.2)
[2020-04-18 08:32] LABS: ALANINE AMINOTRANSFERASE 52 U/L (16-63); ALKALINE PHOSPHATASE 135 U/L (50-136); ASPARTATE AMINOTRANSFERASE 63 U/L (15-37); BILIRUBIN,TOTAL 0.2 mg/dL (0.2-1.0); CARBON DIOXIDE 27 mmol/L (21-32); CHLORIDE 103 mmol/L (98-107); CREATININE 1.4 mg/dL (0.6-1.3); GLUCOSE 178 mg/dL (74-106); MAGNESIUM 1.9 mg/dL (1.8-2.4); PHOSPHOROUS 2.8 mg/dL (2.5-4.9); POTASSIUM 4.2 mmol/L (3.5-5.1); TOTAL PROTEIN, SERUM 5.8 g/dL (6.4-8.2); UREA NITROGEN, BLOOD 23 mg/dL (7-18)
--- NOTE | 2020-04-18 09:06 | NUR ---
CLINICAL PHARMACY NOTE:GENTAMICIN DOSING S: To continue gentamicin dosing on 74 y/o male for UTI (esbl e coli) O: Temp 98 BUN 13 (04/16) Scr 1.2 (04/16) WBC 15.7 (04/16) Gentamicin trough level on 04/13 at 0830: 2.8 Gentamicin Peak level on 04/13 at 1000: 8.4 Gentamicin trough level 04/16 @ 0830: 1.2 Gentamicin peak level on 04/16 @ 1000: 8.2 ht 124cm wt 56 kg urine culture ESBL E coli sensitive to gentamicin Gentamicin trough level 04/19 @ 0330 pending Gentamicin peak level 04/19@ 0500 pending Plan Will continue same dose of gentamicin 50mg IVPB q22hr for new estimated trough and peak of 6.2 and 0.9 respectively. 2nd dose was today 04/18 @0600. Will follow and order peak and trough at 3rd dose (due tomorrow 04/19 early am at 0500 and 0330 respectively). Lab endorsed to coordinate with RN for levels. Will endorse night RN for levels as well. Will follow levels when available and adjust as needed.
[2020-04-18] MEDS: levETIRAcetam IV 1,000 MG in IV DEXTROSE 5% 100 ML IV SCH ×2 (09:36→20:19)
--- NOTE | 2020-04-18 10:36 | NUR ---
Meds and Feeding not given since awaiting results for CXR for NGT placement. Results were need withdrawal of enteric tube 6cm suggested. Ordered another CXR after withdrawal
[2020-04-18 11:16] VITALS: BP 137/70
--- NOTE | 2020-04-18 13:25 | NUR ---
Reinserted another NG tube since pt pulled it again . Fr 14 at 55cm, will order CXR for placement. Pt tolerated well
[2020-04-18] MEDS: FLUCONAZOLE 100 MG TABLET PO SCH (15:09)
[2020-04-18] MEDS: ALLOPURINOL 100 MG TABLET NG SCH (15:09)
[2020-04-18] MEDS: THIAMINE HCL 100 MG TABLET NG SCH ×2 (15:09→20:27)
[2020-04-18] MEDS: ASCORBIC ACID 500 MG TABLET NG SCH ×2 (15:10→20:28)
[2020-04-18] MEDS: FAMOTIDINE 20 MG TABLET NG SCH (15:10)
[2020-04-18] MEDS: CHOLECALCIFEROL 1,000 UNIT TABLET NG SCH (15:10)
[2020-04-18] MEDS: ZINC SULFATE 220 MG CAPSULE NG SCH (15:10)
[2020-04-18 15:14] VITALS: BP 128/58
[2020-04-18] MEDS: GLUCERNA 1.2 1000ML LIQUID NG PRN (15:24)
--- NOTE | 2020-04-18 15:29 | NUR ---
Just gave 9AM meds via NGT since tube was just reinserted with CXR done for placement. Coreg for 8AM was not given since next dose it at 1800 and current BP is 128/58. Informed Theresa director and pharmacy. Will continue to monitor
--- NOTE | 2020-04-18 19:30 | NUR ---
Patient in bed resting and awake. Patient has no s/s of acute distress. Patient has no s/s of pain. Patient on 3L NC and is setting WNL. Patient has NGT, Glucerna 1.2 running at 60cc and tolerating well. Patient has L upper midline IV, intact and patent. Patient is afebrile. Vitals are stable. Safety measure in place, bed low and locked in position. Will continue with the plan of care.
[2020-04-18 20:00] VITALS: BP 107/59
[2020-04-18] MEDS: ATORVASTATIN 40 MG TABLET NG SCH (20:28)
[2020-04-18] MEDS: MELATONIN 3 MG TABLET NG SCH (20:28)
[2020-04-19] VITALS (13 sets, daily range): BP systolic 94–118; BP diastolic 43–70
[2020-04-19] MEDS: DEXTROSE 5% IV SCH (03:59)
[2020-04-19] MEDS: GENTAMICIN SULFATE IV SCH (03:59)
[2020-04-19] MEDS: PIPERACILLIN/TAZOBACTAM/D5W 3.375 G in IV DEXTROSE 5% 50 ML IV SCH ×3 (04:40→21:54)
[2020-04-19 05:27] LABS: ALANINE AMINOTRANSFERASE 60 U/L (16-63); ALKALINE PHOSPHATASE 123 U/L (50-136); ASPARTATE AMINOTRANSFERASE 82 U/L (15-37); BILIRUBIN,TOTAL 0.2 mg/dL (0.2-1.0); CARBON DIOXIDE 27 mmol/L (21-32); CHLORIDE 104 mmol/L (98-107); CREATININE 1.4 mg/dL (0.6-1.3); GLUCOSE 151 mg/dL (74-106); MAGNESIUM 1.9 mg/dL (1.8-2.4); PHOSPHOROUS 3.2 mg/dL (2.5-4.9); POTASSIUM 4.3 mmol/L (3.5-5.1); TOTAL PROTEIN, SERUM 5.7 g/dL (6.4-8.2); UREA NITROGEN, BLOOD 21 mg/dL (7-18)
[2020-04-19 05:35] LABS: BASOPHILS # (AUTO) 0.1 K/uL (0.0-8.0); BASOPHILS % (AUTO) 0.4 % (0.0-2.0); EOSINOPHILS % (AUTO) 0.3 % (0.0-7.0); HEMOGLOBIN 9.8 g/dL (12.5-16.3); LYMPHOCYTES # (AUTO) 0.7 K/uL (20.0-40.0); LYMPHOCYTES % (AUTO) 4.6 % (20.5-51.5); MEAN CORPUSCULAR HEMOGLOBIN 30.1 uug (23.8-33.4); MEAN CORPUSCULAR HGB CONC 33 g/dL (32.5-36.3); MEAN CORPUSCULAR VOLUME 91.7 fL (73.0-96.2); MONOCYTES # (AUTO) 1.1 K/uL (2.0-10.0); MONOCYTES % (AUTO) 7.4 % (0.0-11.0); NEUTROPHILS # (AUTO) 12.8 K/uL (1.8-8.9); NEUTROPHILS % (AUTO) 87.3 % (38.5-71.5); RED BLOOD CELL COUNT(AUTO) 3.27 MIL/uL (4.06-5.63); WHITE BLOOD COUNT (AUTO) 14.6 K/uL (3.6-10.2)
[2020-04-19 05:39] LABS: PLATELET COUNT (AUTO) 94 K/uL (152-348)
--- NOTE | 2020-04-19 05:39 | NUR ---
Called [facility] to notify on-call of lactic acid critical value of 1.2 Addendum: 04/19/20 at 0648 by MEGHAN SHEARER RN correction: albumin level is 1.2
--- NOTE | 2020-04-19 06:28 | NUR ---
Made second call to [facility] regarding critical album level of 1.2
--- NOTE | 2020-04-19 06:45 | NUR ---
S/W MD Short regarding albumin level of 1.2. Dr. Short to leave orders as is and morning rounding MD can make changes as needed.
--- NOTE | 2020-04-19 06:55 | NUR ---
Patient in bed, awake. Patient slept intermittently through the night. Patient has no s/s of of acute distress or pain. Patient on 4L NC setting at 95%. Patients IV patent and intact. NGT patent, Glucerna 1.2 running at 60cc tolerating well. Vitals are stable. Incontinence care provided. Mouth care provided. Needs attended. Safety measures in place. Will endorse to the oncoming nurse accordingly.
[2020-04-19] MEDS: ASCORBIC ACID 500 MG TABLET NG SCH ×2 (08:36→20:12)
[2020-04-19] MEDS: FAMOTIDINE 20 MG TABLET NG SCH (08:36)
[2020-04-19] MEDS: ALLOPURINOL 100 MG TABLET NG SCH (08:37)
[2020-04-19] MEDS: CHOLECALCIFEROL 1,000 UNIT TABLET NG SCH (08:37)
[2020-04-19] MEDS: THIAMINE HCL 100 MG TABLET NG SCH ×2 (08:37→20:13)
[2020-04-19] MEDS: FLUCONAZOLE 100 MG TABLET PO SCH (08:37)
[2020-04-19] MEDS: ZINC SULFATE 220 MG CAPSULE NG SCH (08:37)
[2020-04-19] MEDS: CARVEDILOL 12.5 MG TABLET NG SCH ×2 (08:42→18:08)
--- NOTE | 2020-04-19 09:00 | NUR ---
received pt. resting in bed, awake. Patient appears in no acute distress or pain. Pt. had audible secretions. RT in room to deep suction pt. Patient on 4L NC setting at 95% RT lowered O2 to 93%. Patients has [place] midline patent and intact. NGT patent, Glucerna 1.2 running at 60cc tolerating well. Vitals are stable. Incontinence care provided. Mouth care provided. Needs attended. Safety measures in place. Will endorse to the oncoming nurse accordingly.
[2020-04-19] MEDS: levETIRAcetam IV 1,000 MG in IV DEXTROSE 5% 100 ML IV SCH ×2 (09:09→21:55)
[2020-04-19] MEDS: GLUCERNA 1.2 1000ML LIQUID NG PRN (09:09)
--- NOTE | 2020-04-19 11:20 | NUR ---
pt. had audible secretions. deep suctioned pt. Checked NG tube for placement and residual. Dark brown red blood coming from NG tube. 450 cc of dark red blood coming from NG tube. Lavaged NG tube with ice. Pt. still has consistent amount of blood coming from NG tube. Dr. Larson aware. foundry worker aware and input in orders from BP 120/57 HR 100. O2 on 4 L 86%. Switched to face mask 6 L pt. saturating in low 90s.
[2020-04-19 11:25] LABS: ABG BASE EXCESS -0.1 mmol/L; ABG HCO3 23.4 mmol/L; ABG PCO2 33.9 mmHg (35.0-45.0); ABG PH 7.456 (7.350-7.450); ABG PO2 63.3 mmHg (75.0-100.0); ABG SITE LEFT RADIAL; ABG TOTAL HEMOGLOBIN 11.1 G/dL (13.5-18.0); COHb 0.6 % (0.5-1.5); MetHb 0.1 % (0.0-1.5); O2Hb 90.8 % (94.0-97.0)
[2020-04-19] MEDS: PANTOPRAZOLE SODIUM 40 MG VIAL IV SCH ×2 (11:25→20:44)
[2020-04-19 11:54] LABS: BASOPHILS # (AUTO) 0.1 K/uL (0.0-8.0); BASOPHILS % (AUTO) 0.5 % (0.0-2.0); EOSINOPHILS % (AUTO) 0.1 % (0.0-7.0); HEMATOCRIT 35.1 % (36.7-47.1); HEMOGLOBIN 11.5 g/dL (12.5-16.3); LYMPHOCYTES # (AUTO) 0.4 K/uL (20.0-40.0); LYMPHOCYTES % (AUTO) 1.9 % (20.5-51.5); MEAN CORPUSCULAR HEMOGLOBIN 30.6 uug (23.8-33.4); MEAN CORPUSCULAR HGB CONC 33 g/dL (32.5-36.3); MEAN CORPUSCULAR VOLUME 93.7 fL (73.0-96.2); MONOCYTES # (AUTO) 1.1 K/uL (2.0-10.0); MONOCYTES % (AUTO) 5.2 % (0.0-11.0); NEUTROPHILS % (AUTO) 92.3 % (38.5-71.5); PLATELET COUNT (AUTO) 89 K/uL (152-348); RED BLOOD CELL COUNT(AUTO) 3.74 MIL/uL (4.06-5.63); WHITE BLOOD COUNT (AUTO) 21.7 K/uL (3.6-10.2)
[2020-04-19 12:13] LABS: LYMPHOCYTES % (MANUAL) 2 % (20-40); MONOCYTES % (MANUAL) 6 % (2-10); NEUTROPHILS % (MANUAL) 92 % (42-75)
--- NOTE | 2020-04-19 12:30 | NUR ---
Transferred patient to CCU. Patient awake and alert, pt in SR, no respiratory distress O2s sats 99%on 6L via face mask. Patient placed on monitors BP: 107/62, pulse: 97, O2 sat 98%, Resp: 25.
--- NOTE | 2020-04-19 14:32 | NUR ---
Pulmonary services Dr. Garza in the unit, full report given to Dr. Garza. See order history for new orders.
[2020-04-19 16:36] LABS: HEMATOCRIT 29.8 % (36.7-47.1); HEMOGLOBIN 9.6 g/dL (12.5-16.3)
[2020-04-19] MEDS ORDERED: PANTOPRAZOLE SODIUM 40 MG TABLET.DR PO SCH (17:00)
[2020-04-19 17:54] LABS: *OCCULT BLOOD STOOL POSITIVE (NEGATIVE)
--- NOTE | 2020-04-19 19:30 | NUR ---
Report received. Patient admitted 04/08/20 DX: Sepsis, R/o COVID-19; test came back negative. Eyes open, tracks but non verbal. Has HX: Down Syndrome and SZ disorder. O2 6L mask, sat above 94%. Will monitor closely. Assessment completed and documented. Incontinent of urine and small soft green stools. Cleaned; skin care provided. Condom catheter placed and secured. Addendum: 04/20/20 at 0430 by RIVER NAVARRO RN Amended: Links added. Addendum: 04/20/20 at 0431 by RIVER NAVARRO RN Amended: Links added. Addendum: 04/20/20 at 430 by RIVER NAVARRO RN Amended: Links added. Addendum: 04/20/20 at 430 by RIVER NAVARRO RN Amended: Links added. Addendum: 04/20/20 at 430 by RIVER NAVARRO RN Amended: Links added. Addendum: 04/20/20 at 0432 by RIVER NAVARRO RN Amended: Links added. Addendum: 04/20/20 at 0432 by RIVER NAVARRO RN Amended: Links added.
[2020-04-19] MEDS: FLUCONAZOLE 200 MG/NS 100ML IV 100 MG in PREMIXED 1 EACH IV SCH (20:05)
[2020-04-19] MEDS: ATORVASTATIN 40 MG TABLET NG SCH (20:13)
[2020-04-19] MEDS: MELATONIN 3 MG TABLET NG SCH (20:13)
[2020-04-20] VITALS (54 sets, daily range): BP systolic 83–114; BP diastolic 45–64
[2020-04-20] MEDS ORDERED: Z GUARD REMEDY PASTE 57 GM TUBE TOP PRN (02:45)
[2020-04-20] MEDS: PIPERACILLIN/TAZOBACTAM/D5W 3.375 G in IV DEXTROSE 5% 50 ML IV SCH ×3 (03:54→19:47)
--- NOTE | 2020-04-20 06:21 | NUR ---
Status unchanged. O2 remains on 6L mask; sat above 94%. Suctioned nasally with red Escobedo catheter for thick clear to mobley secretions. Had 2 soft green BMs during the shift. No further bleeding from NGT. Addendum: 04/20/20 at 0621 by RIVER NAVARRO RN Amended: Links added.
[2020-04-20 06:33] LABS: ALANINE AMINOTRANSFERASE 48 U/L (16-63); ALKALINE PHOSPHATASE 119 U/L (50-136); ASPARTATE AMINOTRANSFERASE 59 U/L (15-37); BILIRUBIN,TOTAL 0.5 mg/dL (0.2-1.0); CARBON DIOXIDE 27 mmol/L (21-32); CHLORIDE 107 mmol/L (98-107); CREATININE 1.6 mg/dL (0.6-1.3); GLUCOSE 101 mg/dL (74-106); PHOSPHOROUS 3.6 mg/dL (2.5-4.9); TOTAL PROTEIN, SERUM 6.1 g/dL (6.4-8.2); UREA NITROGEN, BLOOD 26 mg/dL (7-18)
[2020-04-20 07:07] LABS: EOSINOPHILS % (AUTO) 0.1 % (0.0-7.0); LYMPHOCYTES # (AUTO) 0.6 K/uL (20.0-40.0)
[2020-04-20 07:12] LABS: BASOPHILS % (AUTO) 0.2 % (0.0-2.0); HEMATOCRIT 30.1 % (36.7-47.1); HEMOGLOBIN 9.7 g/dL (12.5-16.3); MEAN CORPUSCULAR HEMOGLOBIN 30.3 uug (23.8-33.4); MEAN CORPUSCULAR HGB CONC 32 g/dL (32.5-36.3); MEAN CORPUSCULAR VOLUME 93.9 fL (73.0-96.2); MONOCYTES # (AUTO) 1.1 K/uL (2.0-10.0); MONOCYTES % (AUTO) 5.2 % (0.0-11.0); NEUTROPHILS # (AUTO) 19.3 K/uL (1.8-8.9); NEUTROPHILS % (AUTO) 91.5 % (38.5-71.5); WHITE BLOOD COUNT (AUTO) 21.1 K/uL (3.6-10.2)
[2020-04-20 07:16] LABS: PLATELET COUNT (AUTO) 139 K/uL (152-348)
[2020-04-20] MEDS: CARVEDILOL 12.5 MG TABLET NG SCH (08:00)
[2020-04-20] MEDS: levETIRAcetam IV 1,000 MG in IV DEXTROSE 5% 100 ML IV SCH ×2 (08:03→20:19)
[2020-04-20] MEDS: THIAMINE HCL 100 MG TABLET NG SCH ×2 (08:03→20:20)
[2020-04-20] MEDS: CHOLECALCIFEROL 1,000 UNIT TABLET NG SCH (08:03)
[2020-04-20] MEDS: PANTOPRAZOLE SODIUM 40 MG VIAL IV SCH ×2 (08:03→20:19)
[2020-04-20] MEDS: ASCORBIC ACID 500 MG TABLET NG SCH ×2 (08:03→20:20)
[2020-04-20] MEDS: ZINC SULFATE 220 MG CAPSULE NG SCH (08:04)
[2020-04-20] MEDS: Z GUARD REMEDY PASTE 57 GM TUBE TOP SCH ×2 (08:05→20:21)
[2020-04-20] MEDS: ALLOPURINOL 100 MG TABLET NG SCH (08:05)
[2020-04-20] MEDS ORDERED: IV NORMAL SALINE 250 ML IV ONE (09:09)
[2020-04-20 09:25] LABS: BAND % (MANUAL) 1 % (0-10); LYMPHOCYTES % (MANUAL) 3 % (20-40); MONOCYTES % (MANUAL) 3 % (2-10); NEUTROPHILS % (MANUAL) 93 % (42-75)
--- NOTE | 2020-04-20 09:35 | NUR ---
NEPHROLOGY SERVICES DR. ANG IN THE UNIT. FULL REPORT GIVEN TO DR. ANG SEE ORDER HISTORY FOR NEW ORDERS. DR ANG AT BEDSIDE ASSESSING PATIENT.
[2020-04-20] MEDS ORDERED: IV NS 1000 ML 1,000 ML IV SCH (10:00)
--- NOTE | 2020-04-20 10:13 | NUR ---
PULMONARY SERVICES DR. CONSTANTINO IN THE UNIT, FULL REPORT GIVEN TO DR. CONSTANTINO. SEE ORDER HISTORY FOR NEW ORDERS. DR. CONSTANTINO AT BEDSIDE ASSESSING PATIENT.
--- NOTE | 2020-04-20 11:28 | NUR ---
CARDIOLOGY SERVICES DR. VIEIRA IN THE UNIT, FULL REPORT GIVEN TO DR. VIEIRA. SEE ORDER HISTORY FOR NEW ORDERS. DR VIEIRA AT BEDSIDE ASSESSING PATIENT.
--- NOTE | 2020-04-20 11:51 | NUR ---
WOUND CARE CONSULT: REVIEWED CHART, NURSING DOCUMENTATION, PHOTO AND SPOKE WITH NURSING STAFF. PER RN AND PHOTO THERE IS REDNESS WITH IRRITATED SKIN TO PERIANAL AREA AND PERINEUM. RECOMMENDATIONS MADE FOR SKIN PROTECTION. DISCUSSED WITH NURSING STAFF. PT ON FIRST STEP SERGEY LOW AIRLOSS MATTRESS. WILL SEE PRN. IN AGREEMENT WITH PLAN OF CARE.
--- NOTE | 2020-04-20 13:00 | NUR ---
CONTACTED YOUNG PATIENTS CONSERVATOR TO OBTAIN CONSENT FOR PICC LINE INSERTION. PER YOUNG SHE IS UNABLE TO MAKE DECISIONS FROM A NURSING STANDPOINT THEREFORE YOUNG GAVE ME THE NUMBER OF THE NURSE THAT FOLLOWS [place] AT THE FACILITY. SPOKE TO IVAN IVY UPPER CASERPRACTICE ASSISTANT DESIGNEE WHO IS WHO MAKE DECISIONS FOR THE PATIENT. IVAN IVY GAVE TELEPHONE CONSENT FOR PICC LINE.
[2020-04-20 13:10] LABS: BASOPHILS # (AUTO) 0.1 K/uL (0.0-8.0); BASOPHILS % (AUTO) 0.3 % (0.0-2.0); EOSINOPHILS % (AUTO) 0.1 % (0.0-7.0); HEMATOCRIT 27.3 % (36.7-47.1); HEMOGLOBIN 8.8 g/dL (12.5-16.3); LYMPHOCYTES # (AUTO) 0.8 K/uL (20.0-40.0); LYMPHOCYTES % (AUTO) 4.1 % (20.5-51.5); MEAN CORPUSCULAR HEMOGLOBIN 30.3 uug (23.8-33.4); MEAN CORPUSCULAR HGB CONC 32 g/dL (32.5-36.3); MEAN CORPUSCULAR VOLUME 94.2 fL (73.0-96.2); MONOCYTES # (AUTO) 1.1 K/uL (2.0-10.0); MONOCYTES % (AUTO) 5.9 % (0.0-11.0); NEUTROPHILS # (AUTO) 16.6 K/uL (1.8-8.9); NEUTROPHILS % (AUTO) 89.6 % (38.5-71.5); WHITE BLOOD COUNT (AUTO) 18.5 K/uL (3.6-10.2)
[2020-04-20 13:19] LABS: PLATELET COUNT (AUTO) 111 K/uL (152-348)
[2020-04-20] MEDS: NOREPINEPHRINE BITARTRATE 8 MG in IV NORMAL SALINE 242 ML IV PRN (13:47)
--- NOTE | 2020-04-20 16:15 | NUR ---
DR ANG PAGED, PATIENT DESATING AND VERY CONGESTED. DR ANG ORDERED CXR AND ABGS AND TO DISCONTINUE IV FLUIDS.
[2020-04-20 16:38] LABS: ABG BASE EXCESS -2.3 mmol/L; ABG HCO3 21.1 mmol/L; ABG PCO2 31.7 mmHg (35.0-45.0); ABG PH 7.442 (7.350-7.450); ABG PO2 87.6 mmHg (75.0-100.0); ABG SITE RIGHT RADIAL; ABG TOTAL HEMOGLOBIN 11.1 G/dL (13.5-18.0); COHb 0.5 % (0.5-1.5); MetHb 0.2 % (0.0-1.5); O2Hb 95.8 % (94.0-97.0)
[2020-04-20] MEDS: FLUCONAZOLE 200 MG/NS 100ML IV 100 MG in PREMIXED 1 EACH IV SCH (19:48)
[2020-04-20] MEDS: ATORVASTATIN 40 MG TABLET NG SCH (20:20)
[2020-04-20] MEDS: MELATONIN 3 MG TABLET NG SCH (20:21)
[2020-04-20] MEDS: CLOTRIMAZOLE 1% CREAM 30 GM TUBE TOP SCH (20:22)
[2020-04-21] VITALS (96 sets, daily range): BP systolic 87–125; BP diastolic 28–81
[2020-04-21] MEDS: IV NORMAL SALINE 250 ML IV PRN ×2 (01:01→20:33)
[2020-04-21] MEDS: PIPERACILLIN/TAZOBACTAM/D5W 3.375 G in IV DEXTROSE 5% 50 ML IV SCH ×3 (03:45→20:08)
[2020-04-21] MEDS: NOREPINEPHRINE BITARTRATE 8 MG in IV NORMAL SALINE 242 ML IV PRN ×3 (03:47→17:54)
[2020-04-21 05:30] LABS: ALANINE AMINOTRANSFERASE 38 U/L (16-63); ALKALINE PHOSPHATASE 108 U/L (50-136); ASPARTATE AMINOTRANSFERASE 42 U/L (15-37); BILIRUBIN,TOTAL 0.4 mg/dL (0.2-1.0); CARBON DIOXIDE 24 mmol/L (21-32); CHLORIDE 104 mmol/L (98-107); CREATININE 1.4 mg/dL (0.6-1.3); GLUCOSE 127 mg/dL (74-106); MAGNESIUM 2.1 mg/dL (1.8-2.4); PHOSPHOROUS 3.7 mg/dL (2.5-4.9); TOTAL PROTEIN, SERUM 5.5 g/dL (6.4-8.2); UREA NITROGEN, BLOOD 24 mg/dL (7-18)
[2020-04-21] MEDS: PANTOPRAZOLE SODIUM 40 MG VIAL IV SCH ×2 (08:00→21:24)
[2020-04-21] MEDS: levETIRAcetam IV 1,000 MG in IV DEXTROSE 5% 100 ML IV SCH ×2 (08:00→20:08)
[2020-04-21] MEDS: ZINC SULFATE 220 MG CAPSULE NG SCH (08:01)
[2020-04-21] MEDS: ASCORBIC ACID 500 MG TABLET NG SCH ×2 (08:01→21:25)
[2020-04-21] MEDS: CHOLECALCIFEROL 1,000 UNIT TABLET NG SCH (08:01)
[2020-04-21] MEDS: THIAMINE HCL 100 MG TABLET NG SCH ×2 (08:01→21:24)
[2020-04-21 08:02] LABS: BASOPHILS # (AUTO) 0.1 K/uL (0.0-8.0); BASOPHILS % (AUTO) 0.5 % (0.0-2.0); HEMATOCRIT 25.4 % (36.7-47.1); HEMOGLOBIN 8.1 g/dL (12.5-16.3); LYMPHOCYTES # (AUTO) 0.6 K/uL (20.0-40.0); LYMPHOCYTES % (AUTO) 3.3 % (20.5-51.5); MEAN CORPUSCULAR HEMOGLOBIN 29.6 uug (23.8-33.4); MEAN CORPUSCULAR HGB CONC 32 g/dL (32.5-36.3); MEAN CORPUSCULAR VOLUME 93.2 fL (73.0-96.2); MONOCYTES # (AUTO) 0.9 K/uL (2.0-10.0); MONOCYTES % (AUTO) 5.7 % (0.0-11.0); NEUTROPHILS # (AUTO) 14.9 K/uL (1.8-8.9); NEUTROPHILS % (AUTO) 90.5 % (38.5-71.5); PLATELET COUNT (AUTO) 209 K/uL (152-348); RED BLOOD CELL COUNT(AUTO) 2.73 MIL/uL (4.06-5.63); WHITE BLOOD COUNT (AUTO) 16.4 K/uL (3.6-10.2)
[2020-04-21] MEDS: ALLOPURINOL 100 MG TABLET NG SCH (08:02)
[2020-04-21] MEDS: Z GUARD REMEDY PASTE 57 GM TUBE TOP SCH ×2 (08:03→21:26)
[2020-04-21] MEDS: CLOTRIMAZOLE 1% CREAM 30 GM TUBE TOP SCH ×2 (08:04→21:25)
[2020-04-21 08:22] LABS: ABG BASE EXCESS -3.3 mmol/L; ABG HCO3 20.4 mmol/L; ABG PCO2 31.4 mmHg (35.0-45.0); ABG PH 7.431 (7.350-7.450); ABG PO2 63.9 mmHg (75.0-100.0); ABG SITE RIGHT RADIAL; COHb 0.9 % (0.5-1.5); MetHb 0.4 % (0.0-1.5); O2Hb 89.9 % (94.0-97.0)
--- NOTE | 2020-04-21 09:00 | NUR ---
Attending physician, Dr. Fernandez in the unit to see and examine patient, report given. See orders hx.
[2020-04-21 09:02] LABS: FERRITIN 2652 ng/mL (26-388)
--- NOTE | 2020-04-21 09:38 | NUR ---
Pulmonary services, Dr. Garza in the unit to see and examine patient, report given, see order hx.
[2020-04-21 12:26] LABS: BASOPHILS # (AUTO) 0.1 K/uL (0.0-8.0); BASOPHILS % (AUTO) 0.4 % (0.0-2.0); HEMATOCRIT 24.9 % (36.7-47.1); LYMPHOCYTES # (AUTO) 0.6 K/uL (20.0-40.0); LYMPHOCYTES % (AUTO) 3.4 % (20.5-51.5); MEAN CORPUSCULAR HEMOGLOBIN 30.1 uug (23.8-33.4); MEAN CORPUSCULAR HGB CONC 32 g/dL (32.5-36.3); MEAN CORPUSCULAR VOLUME 93.6 fL (73.0-96.2); MONOCYTES # (AUTO) 1.1 K/uL (2.0-10.0); MONOCYTES % (AUTO) 6.3 % (0.0-11.0); NEUTROPHILS # (AUTO) 15.2 K/uL (1.8-8.9); NEUTROPHILS % (AUTO) 89.9 % (38.5-71.5); PLATELET COUNT (AUTO) 166 K/uL (152-348); RED BLOOD CELL COUNT(AUTO) 2.66 MIL/uL (4.06-5.63); WHITE BLOOD COUNT (AUTO) 16.9 K/uL (3.6-10.2)
[2020-04-21 13:10] LABS: IRON, SERUM 14 ug/dL (50-175)
[2020-04-21] MEDS: ALBUTEROL SULFATE 2.5 MG/3 ML NEBU NEB SCH ×2 (14:12→19:40)
[2020-04-21] MEDS: IPRATROPIUM BROMIDE 0.5 MG/2.5 ML NEBU NEB SCH ×2 (14:12→19:40)
[2020-04-21] MEDS: FLUCONAZOLE 200 MG/NS 100ML IV 100 MG in PREMIXED 1 EACH IV SCH (20:07)
[2020-04-21] MEDS: MELATONIN 3 MG TABLET NG SCH (21:09)
[2020-04-21] MEDS: ATORVASTATIN 40 MG TABLET NG SCH (21:24)
[2020-04-22] VITALS (80 sets, daily range): BP systolic 81–116; BP diastolic 36–72
[2020-04-22] MEDS: PIPERACILLIN/TAZOBACTAM/D5W 3.375 G in IV DEXTROSE 5% 50 ML IV SCH ×3 (03:07→20:16)
[2020-04-22 05:23] LABS: EOSINOPHILS % (AUTO) 0.1 % (0.0-7.0); LYMPHOCYTES # (AUTO) 0.5 K/uL (20.0-40.0); MONOCYTES # (AUTO) 0.6 K/uL (2.0-10.0); WHITE BLOOD COUNT (AUTO) 10.9 K/uL (3.6-10.2)
[2020-04-22 05:25] LABS: BASOPHILS % (AUTO) 0.4 % (0.0-2.0); HEMATOCRIT 22.1 % (36.7-47.1); LYMPHOCYTES % (AUTO) 4.3 % (20.5-51.5); MEAN CORPUSCULAR HEMOGLOBIN 30.9 uug (23.8-33.4); MEAN CORPUSCULAR HGB CONC 33 g/dL (32.5-36.3); MEAN CORPUSCULAR VOLUME 92.8 fL (73.0-96.2); MONOCYTES % (AUTO) 5.7 % (0.0-11.0); NEUTROPHILS # (AUTO) 9.8 K/uL (1.8-8.9); NEUTROPHILS % (AUTO) 89.5 % (38.5-71.5)
[2020-04-22 05:38] LABS: HEMOGLOBIN 7.4 g/dL (12.5-16.3); PLATELET COUNT (AUTO) 179 K/uL (152-348); RED BLOOD CELL COUNT(AUTO) 2.39 MIL/uL (4.06-5.63)
[2020-04-22 05:42] LABS: ALANINE AMINOTRANSFERASE 25 U/L (16-63); ALKALINE PHOSPHATASE 96 U/L (50-136); ASPARTATE AMINOTRANSFERASE 37 U/L (15-37); BILIRUBIN,TOTAL 0.4 mg/dL (0.2-1.0); CARBON DIOXIDE 25 mmol/L (21-32); CHLORIDE 110 mmol/L (98-107); CREATININE 1.5 mg/dL (0.6-1.3); GLUCOSE 93 mg/dL (74-106); MAGNESIUM 1.5 mg/dL (1.8-2.4); PHOSPHOROUS 3.2 mg/dL (2.5-4.9); POTASSIUM 3.5 mmol/L (3.5-5.1); TOTAL PROTEIN, SERUM 5.4 g/dL (6.4-8.2); UREA NITROGEN, BLOOD 20 mg/dL (7-18)
[2020-04-22 07:07] LABS: LYMPHOCYTES % (MANUAL) 8 % (20-40); MONOCYTES % (MANUAL) 4 % (2-10); NEUTROPHILS % (MANUAL) 88 % (42-75)
[2020-04-22] MEDS: ALBUTEROL SULFATE 2.5 MG/3 ML NEBU NEB SCH ×3 (07:56→20:47)
[2020-04-22] MEDS: IPRATROPIUM BROMIDE 0.5 MG/2.5 ML NEBU NEB SCH ×3 (07:56→20:47)
--- NOTE | 2020-04-22 08:00 | NUR ---
Attending physician Dr. Fernandez in the unit to examine patient, full report given orders to continue ICU monitoring received.
[2020-04-22] MEDS: ZINC SULFATE 220 MG CAPSULE NG SCH (08:01)
[2020-04-22] MEDS: THIAMINE HCL 100 MG TABLET NG SCH ×2 (08:01→20:47)
[2020-04-22] MEDS: CHOLECALCIFEROL 1,000 UNIT TABLET NG SCH (08:01)
[2020-04-22] MEDS: ASCORBIC ACID 500 MG TABLET NG SCH ×2 (08:01→20:47)
[2020-04-22] MEDS: ALLOPURINOL 100 MG TABLET NG SCH (08:02)
[2020-04-22] MEDS: Z GUARD REMEDY PASTE 57 GM TUBE TOP SCH ×2 (08:02→20:47)
[2020-04-22] MEDS: PANTOPRAZOLE SODIUM 40 MG VIAL IV SCH ×2 (08:02→20:47)
[2020-04-22] MEDS: CLOTRIMAZOLE 1% CREAM 30 GM TUBE TOP SCH ×2 (08:05→20:49)
[2020-04-22] MEDS: GLUCERNA 1.2 1000ML LIQUID NG PRN (08:11)
[2020-04-22] MEDS: levETIRAcetam IV 1,000 MG in IV DEXTROSE 5% 100 ML IV SCH ×2 (08:21→20:49)
[2020-04-22 08:39] LABS: ABG BASE EXCESS -1.6 mmol/L; ABG HCO3 22.3 mmol/L; ABG PCO2 34.2 mmHg (35.0-45.0); ABG PH 7.433 (7.350-7.450); ABG SITE RIGHT RADIAL; ABG TOTAL HEMOGLOBIN 7.8 G/dL (13.5-18.0); COHb 0.9 % (0.5-1.5); MetHb 0.3 % (0.0-1.5); O2Hb 97.8 % (94.0-97.0)
--- NOTE | 2020-04-22 10:02 | NUR ---
Cardiology services, Dr. Bond in to examine patient. Report given and witness patient's sbp been in the low 80's for the last 30 minutes. Orders to restart pt. on levophed for a sbp above 90 and MAP of 65 received. and implemented.
--- NOTE | 2020-04-22 10:04 | NUR ---
pulmonary services, Dr. Garza in the unit to see and examine patient, report given. See order hx.
[2020-04-22] MEDS: NOREPINEPHRINE BITARTRATE 8 MG in IV NORMAL SALINE 242 ML IV PRN ×2 (10:10→23:04)
[2020-04-22] MEDS: MAGNESIUM SULFATE/D5W 100 ML IV SCH ×2 (13:01→13:55)
--- NOTE | 2020-04-22 18:20 | NUR ---
Left patient in bed resting no signs of distress.Neuro-lockhart awake alert follows commands Resp; on SM 8 Liter 95-99%. Remains on levophed drip with sbp above 90's and map of 65 titrated per protocol. Stevens to gravity. Picc line and ML LUE patent. No new skin breakdown; no injury sustained. GI glucerna at 30cc/hr. pt,. tolerating no residuals. Will endorse to incoming shift to continue with care plan.
--- NOTE | 2020-04-22 19:10 | NUR ---
Report received. Call placed to Lo Arriola patient's designated decision maker/ to obtain consent for PEG placement. Message left. Patient non verbal; tracks and localizes pain. On continuous O2 @ 8L mask; sat above 94%. Levophed drip via ELMIRA PICC line for BP support. Assessment completed. Had a small soft, liquid dark green stools. Cleaned; skin care provided.
[2020-04-22] MEDS: FLUCONAZOLE 200 MG/NS 100ML IV 100 MG in PREMIXED 1 EACH IV SCH (19:42)
--- NOTE | 2020-04-22 20:25 | NUR ---
Call placed to Dr. Alvarez's exchange re: no consent yet for PEG placement.
--- NOTE | 2020-04-22 20:30 | NUR ---
Dr. Alvarez called back; aware that no call back from patient's designee Lo Arriola. Claims that he too called her twice but she did not return the calls.
--- NOTE | 2020-04-22 20:40 | NUR ---
Nursing advertising supervisor Shruti called inquiring about consent for PEG; informed that a message was left again to Lo Arriola and still awaiting call back. Also informed that Dr. Alvarez was made aware of this.
[2020-04-22] MEDS: MELATONIN 3 MG TABLET NG SCH (20:47)
[2020-04-22] MEDS: ATORVASTATIN 40 MG TABLET NG SCH (20:47)
--- NOTE | 2020-04-22 21:00 | NUR ---
NGT residuals 60 ml. Meds given. NGT feedings held for now; will recheck residual in an hour. Addendum: 04/22/20 at 2317 by RIVER NAVARRO RN Amended: Links added.
--- NOTE | 2020-04-22 22:00 | NUR ---
NGT residuals=50 ml; will continue to hold feedings for now. Will monitor.
[2020-04-23] VITALS (60 sets, daily range): BP systolic 94–131; BP diastolic 48–97
[2020-04-23] MEDS: PIPERACILLIN/TAZOBACTAM/D5W 3.375 G in IV DEXTROSE 5% 50 ML IV SCH ×2 (04:01→11:31)
[2020-04-23] MEDS: IV NORMAL SALINE 250 ML IV PRN (04:10)
[2020-04-23 04:55] LABS: ALANINE AMINOTRANSFERASE 24 U/L (16-63); ALKALINE PHOSPHATASE 135 U/L (50-136); ASPARTATE AMINOTRANSFERASE 39 U/L (15-37); BILIRUBIN,TOTAL 0.3 mg/dL (0.2-1.0); CARBON DIOXIDE 23 mmol/L (21-32); CHLORIDE 108 mmol/L (98-107); CREATININE 1.5 mg/dL (0.6-1.3); GLUCOSE 143 mg/dL (74-106); MAGNESIUM 2.7 mg/dL (1.8-2.4); PHOSPHOROUS 2.6 mg/dL (2.5-4.9); POTASSIUM 3.5 mmol/L (3.5-5.1); TOTAL PROTEIN, SERUM 5.8 g/dL (6.4-8.2); UREA NITROGEN, BLOOD 17 mg/dL (7-18)
[2020-04-23 05:02] LABS: BASOPHILS # (AUTO) 0.1 K/uL (0.0-8.0); BASOPHILS % (AUTO) 0.9 % (0.0-2.0); EOSINOPHILS % (AUTO) 0.2 % (0.0-7.0); HEMATOCRIT 24.2 % (36.7-47.1); HEMOGLOBIN 7.8 g/dL (12.5-16.3); LYMPHOCYTES # (AUTO) 0.7 K/uL (20.0-40.0); LYMPHOCYTES % (AUTO) 5.3 % (20.5-51.5); MEAN CORPUSCULAR HEMOGLOBIN 30.3 uug (23.8-33.4); MEAN CORPUSCULAR HGB CONC 32 g/dL (32.5-36.3); MEAN CORPUSCULAR VOLUME 93.5 fL (73.0-96.2); MONOCYTES # (AUTO) 0.8 K/uL (2.0-10.0); MONOCYTES % (AUTO) 6.2 % (0.0-11.0); NEUTROPHILS # (AUTO) 10.8 K/uL (1.8-8.9); NEUTROPHILS % (AUTO) 87.4 % (38.5-71.5); RED BLOOD CELL COUNT(AUTO) 2.59 MIL/uL (4.06-5.63); WHITE BLOOD COUNT (AUTO) 12.4 K/uL (3.6-10.2)
[2020-04-23 05:15] LABS: PLATELET COUNT (AUTO) 188 K/uL (152-348)
--- NOTE | 2020-04-23 06:29 | NUR ---
No neuro changes. Levophed drip at 0.08 mcg/kg/min. Kept NPO after midnoc; for possible PEG placement. No seizures during the shift.
[2020-04-23] MEDS: NOREPINEPHRINE BITARTRATE 8 MG in IV NORMAL SALINE 242 ML IV PRN ×2 (06:51→18:29)
[2020-04-23 07:31] LABS: LYMPHOCYTES % (MANUAL) 7 % (20-40); MONOCYTES % (MANUAL) 4 % (2-10); NEUTROPHILS % (MANUAL) 89 % (42-75)
--- NOTE | 2020-04-23 08:00 | NUR ---
Called Lo Arriola (conservator) for telephone consent for PEG. Left message and awaiting return call.
[2020-04-23] MEDS: PANTOPRAZOLE SODIUM 40 MG VIAL IV SCH ×2 (08:08→21:17)
[2020-04-23] MEDS: ALBUTEROL SULFATE 2.5 MG/3 ML NEBU NEB SCH ×5 (08:08→23:41)
[2020-04-23] MEDS: IPRATROPIUM BROMIDE 0.5 MG/2.5 ML NEBU NEB SCH ×5 (08:08→23:41)
[2020-04-23] MEDS: levETIRAcetam IV 1,000 MG in IV DEXTROSE 5% 100 ML IV SCH ×2 (08:08→21:17)
--- NOTE | 2020-04-23 09:00 | NUR ---
PEG surgery cancelled. Unable to obtain telephone consent at this time. Conservator never returned call back.
[2020-04-23] MEDS: THIAMINE HCL 100 MG TABLET NG SCH ×2 (09:29→21:24)
[2020-04-23] MEDS: ALLOPURINOL 100 MG TABLET NG SCH (09:29)
[2020-04-23] MEDS: ZINC SULFATE 220 MG CAPSULE NG SCH (09:29)
[2020-04-23] MEDS: ASCORBIC ACID 500 MG TABLET NG SCH ×2 (09:29→21:17)
[2020-04-23] MEDS: CLOTRIMAZOLE 1% CREAM 30 GM TUBE TOP SCH ×2 (09:30→21:25)
[2020-04-23] MEDS: Z GUARD REMEDY PASTE 57 GM TUBE TOP SCH ×2 (09:30→21:25)
[2020-04-23] MEDS: CHOLECALCIFEROL 1,000 UNIT TABLET NG SCH (09:31)
--- NOTE | 2020-04-23 09:38 | NUR ---
Dr. Garza here to see pt. Full report given. New orders received.
[2020-04-23] MEDS: GLUCERNA 1.2 1000ML LIQUID NG PRN (10:00)
[2020-04-23] MEDS: ACETYLCYSTEINE 20% 800 MG/4 ML VIAL NEB SCH ×2 (15:00→23:41)
--- NOTE | 2020-04-23 19:15 | NUR ---
received patient awake , non verbal , unable to follow command on 6 l facial mask , ngt in placed feeding at 15 ml , nephro , iv tko ns , , levophed 0.1 mcg , petit intact
--- NOTE | 2020-04-23 19:30 | NUR ---
kory , conservator called [phone] for consent , no response , ant remote inpatient coder for ID is here to see patient and given an update on patient's condition , no seizure noted
[2020-04-23] MEDS: FLUCONAZOLE 200 MG/NS 100ML IV 100 MG in PREMIXED 1 EACH IV SCH (21:17)
[2020-04-23] MEDS: ATORVASTATIN 40 MG TABLET NG SCH (21:17)
[2020-04-23] MEDS: MELATONIN 3 MG TABLET NG SCH (21:18)
--- NOTE | 2020-04-23 22:46 | NUR ---
vs will be able to maintain at accepatable level sbp > 90 , currently at 0.1 mcg of levophed , monitor intake and output , on gt feeding 15 ml og glucerna no residual Addendum: 04/23/20 at 2245 by HORACE HOWARD RN Amended: Links added. Addendum: 04/23/20 at 2246 by HORACE HOWARD RN Amended: Links added. Addendum: 04/23/20 at 2247 by HORACE HOWARD RN Amended: Links added. Addendum: 04/23/20 at 4 by HORACE HOWARD RN Amended: Links added. Addendum: 04/23/20 at 2256 by HORACE HOWARD RN Amended: Links added.
--- NOTE | 2020-04-23 22:47 | NUR ---
will be able to tolerate cuurent oxygen of 6l of nasal mask , breathing and mental status being monitored for changes Addendum: 04/23/20 at 2246 by HORACE HOWARD RN Amended: Jared added. Addendum: 04/23/20 at 2247 by HORACE HOWARD RN Amended: Jarde added. Addendum: 04/23/20 at 2254 by HORACE HOWARD RN Amended: Links added. Addendum: 04/23/20 at 3836 by HORACE HOWARD RN Amended: Links added.
--- NOTE | 2020-04-23 22:48 | NUR ---
yoniator was called for consent for peg placement , waiting for call back , currently on ngt of glucerna at 15 ml Addendum: 04/23/20 at 2248 by HORACE HOWARD RN Amended: Jared added. Addendum: 04/23/20 at 2253 by HORACE HOWARD RN Amended: Jared added. Addendum: 04/23/20 at 2255 by HORACE HOWARD RN Amended: Links added.
--- NOTE | 2020-04-23 22:54 | NUR ---
blodd gases is being monitored regularly and being reported to doctor on timely manner Addendum: 04/23/20 at 4 by HORACE HOWARD RN Amended: Links added. Addendum: 04/23/20 at 2255 by HORACE HOWARD RN Amended: Links added.
--- NOTE | 2020-04-23 22:55 | NUR ---
wound site is being kept dry and clean and cream abeing applied and covered with non adhesive dressing , , patient will not have any further skin issue during hospitalization Addendum: 04/23/20 at 2256 by HORACE HOWARD RN Amended: Links added.
--- NOTE | 2020-04-23 22:56 | NUR ---
wound site is being kept dry and clean and cream abeing applied and covered with non adhesive dressing , , patient will not have any further skin issue during hospitalization Addendum: 04/23/20 at 2257 by HORACE HOWARD RN Amended: Links added.
--- NOTE | 2020-04-23 22:58 | NUR ---
vital signs being monitored and currently on levophed at 0.1 mcg Addendum: 04/23/20 at 2258 by HORACE HOWARD RN Amended: Links added.
--- NOTE | 2020-04-23 23:57 | NUR ---
resting comfortably , no seizure noted
[2020-04-24] VITALS (67 sets, daily range): BP systolic 74–127; BP diastolic 45–79
--- NOTE | 2020-04-24 | NUR ---
arousable , no distress , no seizure noted , feeding stopped , npo for possible peg placement today
[2020-04-24] MEDS: IPRATROPIUM BROMIDE 0.5 MG/2.5 ML NEBU NEB SCH ×6 (03:12→22:32)
[2020-04-24] MEDS: ALBUTEROL SULFATE 2.5 MG/3 ML NEBU NEB SCH ×6 (03:12→22:32)
--- NOTE | 2020-04-24 04:00 | NUR ---
awake , able to follow very simple command , no seizure noted , on levophed 0.1 mcg
[2020-04-24 05:23] LABS: CARBON DIOXIDE 24 mmol/L (21-32); CHLORIDE 109 mmol/L (98-107); CREATININE 1.4 mg/dL (0.6-1.3); GLUCOSE 106 mg/dL (74-106); MAGNESIUM 2.2 mg/dL (1.8-2.4); PHOSPHOROUS 3.1 mg/dL (2.5-4.9); POTASSIUM 4.1 mmol/L (3.5-5.1); UREA NITROGEN, BLOOD 14 mg/dL (7-18)
[2020-04-24 05:34] LABS: BASOPHILS # (AUTO) 0.1 K/uL (0.0-8.0); BASOPHILS % (AUTO) 0.9 % (0.0-2.0); EOSINOPHILS % (AUTO) 0.2 % (0.0-7.0); HEMATOCRIT 28.9 % (36.7-47.1); HEMOGLOBIN 9.8 g/dL (12.5-16.3); LYMPHOCYTES # (AUTO) 0.9 K/uL (20.0-40.0); LYMPHOCYTES % (AUTO) 7.4 % (20.5-51.5); MEAN CORPUSCULAR HEMOGLOBIN 31.7 uug (23.8-33.4); MEAN CORPUSCULAR HGB CONC 34 g/dL (32.5-36.3); MEAN CORPUSCULAR VOLUME 93.7 fL (73.0-96.2); MONOCYTES # (AUTO) 0.8 K/uL (2.0-10.0); MONOCYTES % (AUTO) 6.4 % (0.0-11.0); NEUTROPHILS # (AUTO) 10.1 K/uL (1.8-8.9); NEUTROPHILS % (AUTO) 85.1 % (38.5-71.5); PLATELET COUNT (AUTO) 222 K/uL (152-348); RED BLOOD CELL COUNT(AUTO) 3.09 MIL/uL (4.06-5.63); WHITE BLOOD COUNT (AUTO) 11.8 K/uL (3.6-10.2)
[2020-04-24] MEDS: ACETYLCYSTEINE 20% 800 MG/4 ML VIAL NEB SCH ×3 (07:38→22:32)
[2020-04-24] MEDS: PANTOPRAZOLE SODIUM 40 MG VIAL IV SCH ×2 (07:40→21:22)
[2020-04-24] MEDS: ZINC SULFATE 220 MG CAPSULE NG SCH (07:40)
[2020-04-24] MEDS: ASCORBIC ACID 500 MG TABLET NG SCH ×2 (07:40→21:23)
[2020-04-24] MEDS: ALLOPURINOL 100 MG TABLET NG SCH (07:40)
[2020-04-24] MEDS: THIAMINE HCL 100 MG TABLET NG SCH ×2 (07:40→21:23)
[2020-04-24] MEDS: Z GUARD REMEDY PASTE 57 GM TUBE TOP SCH ×2 (07:41→21:25)
[2020-04-24] MEDS: CLOTRIMAZOLE 1% CREAM 30 GM TUBE TOP SCH ×2 (07:41→21:26)
[2020-04-24] MEDS: CHOLECALCIFEROL 1,000 UNIT TABLET NG SCH (07:42)
[2020-04-24] MEDS: levETIRAcetam IV 1,000 MG in IV DEXTROSE 5% 100 ML IV SCH ×2 (07:43→21:18)
--- NOTE | 2020-04-24 08:13 | NUR ---
Telephone consent for PEG tube signed by Lo Arriola ([facility] Assisted RN for consent): . Lo alert and oriented during our telephone conversation and is aware of the procedure to be done. Broadcast Checker Director for 24-7 telephone consents Mon-Fri 9am-5pm also provided: .
[2020-04-24 08:34] LABS: ABG BASE EXCESS -3.4 mmol/L; ABG HCO3 21.3 mmol/L; ABG PCO2 37.2 mmHg (35.0-45.0); ABG PH 7.376 (7.350-7.450); ABG PO2 75.3 mmHg (75.0-100.0); ABG SITE RIGHT RADIAL; ABG TOTAL HEMOGLOBIN 10.3 G/dL (13.5-18.0); COHb 0.3 % (0.5-1.5); MetHb 0.3 % (0.0-1.5); O2Hb 93.4 % (94.0-97.0)
--- NOTE | 2020-04-24 09:51 | NUR ---
Dr. Garza here to see pt. Full report given. New orders received.
[2020-04-24] MEDS: GLUCERNA 1.2 1000ML LIQUID NG PRN (10:00)
[2020-04-24] MEDS ORDERED: GUAIFENESIN LA 600 MG TABLET.SA PO SCH (10:15)
--- NOTE | 2020-04-24 10:18 | NUR ---
Spoke with Dr. Alvarez on the telephone and made aware of telephone consent for PEG procedure. MD stated no PEG today, but PEG for tomorrow. MD to schedule with surgery and nursing office.
[2020-04-24] MEDS: GUAIFENESIN SUGAR FREE 100 MG/5 ML UDC NG SCH ×4 (11:15→23:30)
[2020-04-24] MEDS: NOREPINEPHRINE BITARTRATE 8 MG in IV NORMAL SALINE 242 ML IV PRN ×2 (18:30→21:17)
[2020-04-24] MEDS: FLUCONAZOLE 200 MG/NS 100ML IV 100 MG in PREMIXED 1 EACH IV SCH (19:55)
--- NOTE | 2020-04-24 20:00 | NUR ---
RECEIVED PT. VERBALLY NONRESPONSIVE. ON O2 @ 6L SIMPLE MASK W/ O2 SAT OF 96%. ON LEVOPHED @ 0.1MCQ/KG/MIN ON ELMIRA. NGT ON L NARE CHECKED PLACEMENT & CHECKED RESIDUAL NONE NOTED, ON TUBE FDG OF GLUCERNA 1.2 @ 15CC/HR. SUCTIONED VIA OROPHARYNGEALLY & NASOPHANGEALLY W/ MOD. BLOODY THICK MUCOUS. REPOSITIONED ON HIS SIDE W/ HOB ELEVATED.
[2020-04-24] MEDS: ATORVASTATIN 40 MG TABLET NG SCH (21:22)
[2020-04-24] MEDS: MELATONIN 3 MG TABLET NG SCH (21:24)
--- NOTE | 2020-04-24 22:00 | NUR ---
HS CARE DONE. FREQ. SUCTIONING NEEDED W/ LARGE AMT OF BLOODY THICK MUCOUS.
[2020-04-25] VITALS (29 sets, daily range): BP systolic 91–127; BP diastolic 47–70
[2020-04-25] MEDS: IPRATROPIUM BROMIDE 0.5 MG/2.5 ML NEBU NEB SCH ×6 (02:33→23:55)
[2020-04-25] MEDS: ALBUTEROL SULFATE 2.5 MG/3 ML NEBU NEB SCH ×6 (02:33→23:56)
[2020-04-25] MEDS: GUAIFENESIN SUGAR FREE 100 MG/5 ML UDC NG SCH ×6 (03:54→23:59)
--- NOTE | 2020-04-25 04:00 | NUR ---
AM CARE DONE. ORAL CARE DONE. REPOSITIONED ON HIS SIDE W/ HOB ELEVATED. LEVOPHED DRIP REMAINS OFF.
[2020-04-25] MEDS: IV NORMAL SALINE 250 ML IV PRN (05:01)
[2020-04-25 05:24] LABS: CREATININE 1.1 mg/dL (0.6-1.3); PHOSPHOROUS 2.5 mg/dL (2.5-4.9); POTASSIUM 3.6 mmol/L (3.5-5.1)
[2020-04-25 05:38] LABS: BASOPHILS # (AUTO) 0.1 K/uL (0.0-8.0); BASOPHILS % (AUTO) 0.8 % (0.0-2.0); EOSINOPHILS % (AUTO) 0.3 % (0.0-7.0); HEMATOCRIT 24.6 % (36.7-47.1); LYMPHOCYTES # (AUTO) 0.7 K/uL (20.0-40.0); LYMPHOCYTES % (AUTO) 6.5 % (20.5-51.5); MEAN CORPUSCULAR HEMOGLOBIN 30.6 uug (23.8-33.4); MEAN CORPUSCULAR HGB CONC 33 g/dL (32.5-36.3); MEAN CORPUSCULAR VOLUME 94.3 fL (73.0-96.2); MONOCYTES # (AUTO) 0.8 K/uL (2.0-10.0); MONOCYTES % (AUTO) 7.5 % (0.0-11.0); NEUTROPHILS # (AUTO) 9.4 K/uL (1.8-8.9); NEUTROPHILS % (AUTO) 84.9 % (38.5-71.5); PLATELET COUNT (AUTO) 300 K/uL (152-348); RED BLOOD CELL COUNT(AUTO) 2.61 MIL/uL (4.06-5.63); WHITE BLOOD COUNT (AUTO) 11.1 K/uL (3.6-10.2)
--- NOTE | 2020-04-25 06:00 | NUR ---
OFF TUBE FDG WILL RESUME @ 0800.
--- NOTE | 2020-04-25 07:30 | NUR ---
RECIEVED PT LYING IN BED, EYES WIDE OPEN AND FOLLOWS COMMANDS. NON VERBAL AND GENERALLY WEAK ALL OVER..
[2020-04-25] MEDS: ACETYLCYSTEINE 20% 800 MG/4 ML VIAL NEB SCH ×3 (07:34→23:56)
[2020-04-25 08:16] LABS: ABG HCO3 21.6 mmol/L; ABG PCO2 36.3 mmHg (35.0-45.0); ABG PH 7.392 (7.350-7.450); ABG PO2 88.5 mmHg (75.0-100.0); ABG SITE RIGHT RADIAL; ABG TOTAL HEMOGLOBIN 8.3 G/dL (13.5-18.0); COHb 1.2 % (0.5-1.5); MetHb 0.2 % (0.0-1.5)
--- NOTE | 2020-04-25 08:30 | NUR ---
SUCTIONED SECRETIONS ORALLY LARGE AMOUNT OF THICK WHITISH PHLEGM. O2 AT 6L BY MASK AND SATURATING 98-100%. NO APPARENT DISTRESS NOTED.
[2020-04-25] MEDS: PANTOPRAZOLE SODIUM 40 MG VIAL IV SCH ×2 (08:31→20:39)
[2020-04-25] MEDS: ALLOPURINOL 100 MG TABLET NG SCH (08:32)
[2020-04-25] MEDS: ZINC SULFATE 220 MG CAPSULE NG SCH (08:32)
[2020-04-25] MEDS: THIAMINE HCL 100 MG TABLET NG SCH ×2 (08:32→20:39)
[2020-04-25] MEDS: ASCORBIC ACID 500 MG TABLET NG SCH ×2 (08:32→20:39)
[2020-04-25] MEDS: levETIRAcetam IV 1,000 MG in IV DEXTROSE 5% 100 ML IV SCH ×2 (08:33→20:39)
[2020-04-25] MEDS: CHOLECALCIFEROL 1,000 UNIT TABLET NG SCH (08:33)
[2020-04-25] MEDS: CLOTRIMAZOLE 1% CREAM 30 GM TUBE TOP SCH ×2 (08:34→20:41)
[2020-04-25] MEDS: Z GUARD REMEDY PASTE 57 GM TUBE TOP SCH ×2 (08:35→20:40)
--- NOTE | 2020-04-25 09:00 | NUR ---
SEEN AND EXAMINED BY DR CONSTANTINO WITH NEW ORDERS.
--- NOTE | 2020-04-25 11:00 | NUR ---
PT IS SCHEDULED TO HAVE A PEG SURGERY AT 5PM BY DR CANTU. PT KEPT NPO. CONSENT IS SIGNED.
[2020-04-25] MEDS: GLUCERNA 1.2 1000ML LIQUID NG PRN (11:02)
--- NOTE | 2020-04-25 14:00 | NUR ---
PT IS DOWNGRADED TO TELEMETRY AND APPOINTMENT SCHEDULER IS INFORMED.
--- NOTE | 2020-04-25 14:18 | NUR ---
PT WAS PLACED ON NPO FOR SURGERY BUT GOT CANCELLED JUST NOW. NGT MEDS JUST GIVEN.
--- NOTE | 2020-04-25 19:30 | NUR ---
Report received. Patient is Tele status, admitted 04/08/20 DX: Sepsis. Negative for Covid-19. Eyes open, aphasic. NAD noted. O2 6L mask, coughing non productively. Sat above 94%. Addendum: 04/26/20 at 0040 by RIVER NAVARRO RN Amended: Links added.
[2020-04-25] MEDS: MELATONIN 3 MG TABLET NG SCH (20:39)
[2020-04-25] MEDS: ATORVASTATIN 40 MG TABLET NG SCH (20:39)
[2020-04-26] VITALS (12 sets, daily range): BP systolic 103–129; BP diastolic 48–63
[2020-04-26] MEDS: IPRATROPIUM BROMIDE 0.5 MG/2.5 ML NEBU NEB SCH ×6 (03:08→22:32)
[2020-04-26] MEDS: ALBUTEROL SULFATE 2.5 MG/3 ML NEBU NEB SCH ×6 (03:08→22:32)
[2020-04-26] MEDS: IV NORMAL SALINE 250 ML IV PRN (03:44)
[2020-04-26] MEDS: GUAIFENESIN SUGAR FREE 100 MG/5 ML UDC NG SCH ×6 (03:44→23:19)
[2020-04-26 05:35] LABS: CREATININE 1.1 mg/dL (0.6-1.3); MAGNESIUM 1.8 mg/dL (1.8-2.4); PHOSPHOROUS 2.8 mg/dL (2.5-4.9); POTASSIUM 3.8 mmol/L (3.5-5.1)
[2020-04-26 05:40] LABS: BASOPHILS # (AUTO) 0.1 K/uL (0.0-8.0); BASOPHILS % (AUTO) 0.9 % (0.0-2.0); EOSINOPHILS # (AUTO) 0.1 K/uL (0.0-0.7); EOSINOPHILS % (AUTO) 0.7 % (0.0-7.0); HEMATOCRIT 24.2 % (36.7-47.1); HEMOGLOBIN 7.8 g/dL (12.5-16.3); LYMPHOCYTES % (AUTO) 11.9 % (20.5-51.5); MEAN CORPUSCULAR HEMOGLOBIN 30.6 uug (23.8-33.4); MEAN CORPUSCULAR HGB CONC 32 g/dL (32.5-36.3); MEAN CORPUSCULAR VOLUME 94.8 fL (73.0-96.2); MONOCYTES # (AUTO) 0.9 K/uL (2.0-10.0); MONOCYTES % (AUTO) 11.1 % (0.0-11.0); NEUTROPHILS # (AUTO) 6.2 K/uL (1.8-8.9); NEUTROPHILS % (AUTO) 75.4 % (38.5-71.5); RED BLOOD CELL COUNT(AUTO) 2.56 MIL/uL (4.06-5.63); WHITE BLOOD COUNT (AUTO) 8.3 K/uL (3.6-10.2)
[2020-04-26 06:01] LABS: PLATELET COUNT (AUTO) 192 K/uL (152-348)
--- NOTE | 2020-04-26 06:24 | NUR ---
Remains on 6L mask O2; sat above 94%. Tolerating NGT feedings fairly well at 30 ml/H. No neuro changes. Addendum: 04/26/20 at 0627 by RIVER NAVARRO RN Amended: Links added.
[2020-04-26] MEDS: ACETYLCYSTEINE 20% 800 MG/4 ML VIAL NEB SCH ×3 (07:53→22:32)
--- NOTE | 2020-04-26 08:17 | NUR ---
Patient on CPAP PSV=8. Addendum: 04/26/20 at 1726 by MARIANNA HIDALGO RN the above documentation is intended for a different pt. (user error.
[2020-04-26] MEDS: PANTOPRAZOLE SODIUM 40 MG VIAL IV SCH ×2 (08:25→20:23)
[2020-04-26] MEDS: ASCORBIC ACID 500 MG TABLET NG SCH ×2 (08:25→20:23)
[2020-04-26] MEDS: ZINC SULFATE 220 MG CAPSULE NG SCH (08:25)
[2020-04-26] MEDS: THIAMINE HCL 100 MG TABLET NG SCH ×2 (08:26→20:23)
[2020-04-26] MEDS: Z GUARD REMEDY PASTE 57 GM TUBE TOP SCH ×2 (08:27→20:24)
[2020-04-26] MEDS: CHOLECALCIFEROL 1,000 UNIT TABLET NG SCH (08:27)
[2020-04-26] MEDS: ALLOPURINOL 100 MG TABLET NG SCH (08:27)
[2020-04-26] MEDS: levETIRAcetam IV 1,000 MG in IV DEXTROSE 5% 100 ML IV SCH ×2 (08:27→20:23)
[2020-04-26] MEDS: CLOTRIMAZOLE 1% CREAM 30 GM TUBE TOP SCH ×2 (08:30→20:24)
--- NOTE | 2020-04-26 17:23 | NUR ---
Patient remains restless and agitated and this time talking to a man in the room (Hallucinating). Attempting to get out of bed unsupervised. Attending notified orders received. Addendum: 04/26/20 at 1725 by MARIANNA HIDALGO RN The above note is intended for a different pt. user error.
--- NOTE | 2020-04-26 19:30 | NUR ---
Report received. Patient awake, aphasic, on 6L O2 by mask, saturations above 94%. Coughing; suctioned both nasally and orally. With thick bloody, mobley secretions. Mildly agitated when suctioned. Assessment done.
[2020-04-26] MEDS: MELATONIN 3 MG TABLET NG SCH (20:23)
[2020-04-26] MEDS: ATORVASTATIN 40 MG TABLET NG SCH (20:23)
--- NOTE | 2020-04-26 23:00 | NUR ---
PM care done; requires frequent suctioning. Tolerating NGT feedings at 30 ml/H. HOB elevated above 30 degrees at all times.
[2020-04-27] VITALS: BP 107/72
[2020-04-27] MEDS: IV NORMAL SALINE 250 ML IV PRN (00:01)
[2020-04-27] MEDS: GLUCERNA 1.2 1000ML LIQUID NG PRN (00:16)
--- NOTE | 2020-04-27 00:43 | NUR ---
Report given to Jasen SIMMS.
[2020-04-27 01:00] VITALS: BP 136/79
--- NOTE | 2020-04-27 01:00 | NUR ---
Transferred to 308 per bed. Condition unchanged.
--- NOTE | 2020-04-27 02:00 | NUR ---
report from Nurse RIVER; situated to room 308; agree to previous assessment; pt kept HOB; aspiration precaution; placed on seizure precaution; continue to monitor; continue plan of care; VSS.
[2020-04-27] MEDS: ALBUTEROL SULFATE 2.5 MG/3 ML NEBU NEB SCH ×6 (02:41→22:30)
[2020-04-27] MEDS: IPRATROPIUM BROMIDE 0.5 MG/2.5 ML NEBU NEB SCH ×6 (02:41→22:30)
[2020-04-27] MEDS: GUAIFENESIN SUGAR FREE 100 MG/5 ML UDC NG SCH ×5 (03:46→20:48)
[2020-04-27 04:00] VITALS: BP 107/56
[2020-04-27 06:43] LABS: CREATININE 1.1 mg/dL (0.6-1.3); MAGNESIUM 1.7 mg/dL (1.8-2.4); PHOSPHOROUS 2.7 mg/dL (2.5-4.9); POTASSIUM 3.7 mmol/L (3.5-5.1)
--- NOTE | 2020-04-27 06:57 | NUR ---
Pt rested well in between care; AM care done; aspiration precaution observed; continue to monitor; continue plan of care.
[2020-04-27 07:02] LABS: BASOPHILS # (AUTO) 0.1 K/uL (0.0-8.0); BASOPHILS % (AUTO) 0.8 % (0.0-2.0); LYMPHOCYTES # (AUTO) 0.6 K/uL (20.0-40.0); MONOCYTES # (AUTO) 0.6 K/uL (2.0-10.0); MONOCYTES % (AUTO) 8.4 % (0.0-11.0); NEUTROPHILS # (AUTO) 5.9 K/uL (1.8-8.9); WHITE BLOOD COUNT (AUTO) 7.2 K/uL (3.6-10.2)
[2020-04-27] MEDS: ACETYLCYSTEINE 20% 800 MG/4 ML VIAL NEB SCH ×3 (07:21→22:30)
--- NOTE | 2020-04-27 07:40 | NUR ---
Patient in bed, open eyes. On Oxygen at 6L via Face mask, saturating 96%. No SOB. No signs of pain or discomfort. NGT intact and patent, Gtube feeding tolerated well. No Residual noted. Kept clean and comfortable. Will continue to monitor.
[2020-04-27] MEDS: levETIRAcetam IV 1,000 MG in IV DEXTROSE 5% 100 ML IV SCH ×2 (08:00→20:54)
[2020-04-27] MEDS: THIAMINE HCL 100 MG TABLET NG SCH ×2 (08:01→20:49)
[2020-04-27] MEDS: ASCORBIC ACID 500 MG TABLET NG SCH ×2 (08:01→20:49)
[2020-04-27] MEDS: PANTOPRAZOLE SODIUM 40 MG VIAL IV SCH ×2 (08:01→20:48)
[2020-04-27] MEDS: CHOLECALCIFEROL 1,000 UNIT TABLET NG SCH (08:01)
[2020-04-27] MEDS: ZINC SULFATE 220 MG CAPSULE NG SCH (08:01)
[2020-04-27] MEDS: ALLOPURINOL 100 MG TABLET NG SCH (08:01)
[2020-04-27 08:05] LABS: EOSINOPHILS % (AUTO) 0.3 % (0.0-7.0); LYMPHOCYTES % (AUTO) 8.2 % (20.5-51.5); MEAN CORPUSCULAR HEMOGLOBIN 30.9 uug (23.8-33.4); MEAN CORPUSCULAR HGB CONC 33 g/dL (32.5-36.3); MEAN CORPUSCULAR VOLUME 95.1 fL (73.0-96.2); NEUTROPHILS % (AUTO) 82.3 % (38.5-71.5); RED BLOOD CELL COUNT(AUTO) 2.31 MIL/uL (4.06-5.63)
[2020-04-27 08:29] LABS: HEMOGLOBIN 7.1 g/dL (12.5-16.3)
[2020-04-27 08:30] LABS: HEMATOCRIT 21.9 % (36.7-47.1)
[2020-04-27 08:32] LABS: PLATELET COUNT (AUTO) 323 K/uL (152-348)
[2020-04-27] MEDS: Z GUARD REMEDY PASTE 57 GM TUBE TOP SCH ×2 (09:16→20:55)
[2020-04-27] MEDS: CLOTRIMAZOLE 1% CREAM 30 GM TUBE TOP SCH ×2 (09:17→20:55)
--- NOTE | 2020-04-27 11:00 | NUR ---
Seen by Dr. Diaz and relayed Hgb 7.1, Mg 1.7, with new Order of Magnesium Sulfate 2G, and CBC, BMP,Iron Panel in AM.
[2020-04-27] MEDS: MAGNESIUM SULFATE/D5W 100 ML IV SCH ×2 (11:12→12:00)
[2020-04-27 11:33] VITALS: BP 102/58
[2020-04-27 16:00] VITALS: BP 112/51
--- NOTE | 2020-04-27 18:20 | NUR ---
EOS: Patient in bed, open eyes, On Oxygen at 6L via face mask. saturating 97%. No signs of Pain/discomfort. NGT intact and patent. NGT Feeding tolerated well. No residual noted. Stevens catheter draining with clear yellow urine. All due medications given as ordered. kept clean and comfortable. Will endorse to Oncoming Nurse.
[2020-04-27 19:58] VITALS: BP 108/48
[2020-04-27] MEDS: ATORVASTATIN 40 MG TABLET NG SCH (20:48)
[2020-04-27] MEDS: MELATONIN 3 MG TABLET NG SCH (20:49)
[2020-04-28] VITALS (7 sets, daily range): BP systolic 98–144; BP diastolic 46–62
[2020-04-28] MEDS: GUAIFENESIN SUGAR FREE 100 MG/5 ML UDC NG SCH ×6 (01:00→21:00)
[2020-04-28] MEDS: IPRATROPIUM BROMIDE 0.5 MG/2.5 ML NEBU NEB SCH ×5 (03:30→19:20)
[2020-04-28] MEDS: ALBUTEROL SULFATE 2.5 MG/3 ML NEBU NEB SCH ×5 (03:30→19:20)
[2020-04-28 05:38] LABS: BASOPHILS # (AUTO) 0.1 K/uL (0.0-8.0); EOSINOPHILS # (AUTO) 0.1 K/uL (0.0-0.7); LYMPHOCYTES # (AUTO) 0.8 K/uL (20.0-40.0); MEAN CORPUSCULAR HEMOGLOBIN 30.5 uug (23.8-33.4); MEAN CORPUSCULAR HGB CONC 33 g/dL (32.5-36.3); NEUTROPHILS # (AUTO) 6.4 K/uL (1.8-8.9); WHITE BLOOD COUNT (AUTO) 8.5 K/uL (3.6-10.2)
[2020-04-28 05:41] LABS: BASOPHILS % (AUTO) 1.2 % (0.0-2.0); HEMATOCRIT 22.7 % (36.7-47.1); LYMPHOCYTES % (AUTO) 9.8 % (20.5-51.5); MEAN CORPUSCULAR VOLUME 93.6 fL (73.0-96.2); MONOCYTES # (AUTO) 1.2 K/uL (2.0-10.0); MONOCYTES % (AUTO) 13.7 % (0.0-11.0); NEUTROPHILS % (AUTO) 74.3 % (38.5-71.5); PLATELET COUNT (AUTO) 277 K/uL (152-348)
[2020-04-28 05:43] LABS: CREATININE 1.2 mg/dL (0.6-1.3); POTASSIUM 3.7 mmol/L (3.5-5.1)
[2020-04-28 05:49] LABS: RED BLOOD CELL COUNT(AUTO) 2.42 MIL/uL (4.06-5.63)
[2020-04-28 05:50] LABS: HEMOGLOBIN 7.4 g/dL (12.5-16.3)
--- NOTE | 2020-04-28 06:47 | NUR ---
Patient slept intermittently. On O2 at 3lpm via NC saturating at 96%. Vpacing on Tele monitor. On NGT feeding Glucerna 1.2 x 30cc/hr, tolerated well. HOB elevated for aspirations prec. Suctioned and oral care done. F/C intact and draining clear yellow urine. On bilateral mittens to prevent pulling of NGT. Will endorse accordingly
[2020-04-28] MEDS: ACETYLCYSTEINE 20% 800 MG/4 ML VIAL NEB SCH ×2 (07:56→15:18)
--- NOTE | 2020-04-28 08:00 | NUR ---
PT HAS A LOW GRADE TEMP 99.4 AND WARM TO TOUCH. MEDICATED WITH TYLENOL 650MG SUPPOSITORY ORDERED. SUCTION SECRETIONS ORALLY AND TURN BASED IN POSITION. VSS.
[2020-04-28] MEDS: ACETAMINOPHEN 650 MG SUPP.RECT RC PRN (09:59)
[2020-04-28] MEDS: ALLOPURINOL 100 MG TABLET NG SCH (09:59)
[2020-04-28] MEDS: THIAMINE HCL 100 MG TABLET NG SCH ×2 (09:59→21:32)
[2020-04-28] MEDS: CHOLECALCIFEROL 1,000 UNIT TABLET NG SCH (09:59)
[2020-04-28] MEDS: ZINC SULFATE 220 MG CAPSULE NG SCH (09:59)
[2020-04-28] MEDS: ASCORBIC ACID 500 MG TABLET NG SCH ×2 (10:00→21:32)
[2020-04-28] MEDS: CLOTRIMAZOLE 1% CREAM 30 GM TUBE TOP SCH ×2 (10:01→21:57)
[2020-04-28] MEDS: Z GUARD REMEDY PASTE 57 GM TUBE TOP SCH ×2 (10:01→21:57)
[2020-04-28] MEDS: PANTOPRAZOLE SODIUM 40 MG VIAL IV SCH ×2 (10:02→21:32)
[2020-04-28] MEDS: levETIRAcetam IV 1,000 MG in IV DEXTROSE 5% 100 ML IV SCH ×2 (10:02→21:32)
[2020-04-28] MEDS: GLUCERNA 1.2 1000ML LIQUID NG PRN (11:38)
--- NOTE | 2020-04-28 18:00 | NUR ---
NO APPARENT CHANGE IN CONDITION ALL DAY.
[2020-04-28] MEDS: ATORVASTATIN 40 MG TABLET NG SCH (21:32)
[2020-04-28] MEDS: MELATONIN 3 MG TABLET NG SCH (21:33)
[2020-04-29] MEDS: ACETYLCYSTEINE 20% 800 MG/4 ML VIAL NEB SCH ×4 (00:02→22:30)
[2020-04-29] MEDS: IPRATROPIUM BROMIDE 0.5 MG/2.5 ML NEBU NEB SCH ×7 (00:02→22:30)
[2020-04-29] MEDS: ALBUTEROL SULFATE 2.5 MG/3 ML NEBU NEB SCH ×7 (00:02→22:31)
[2020-04-29 00:39] VITALS: BP 110/59
[2020-04-29] MEDS: GUAIFENESIN SUGAR FREE 100 MG/5 ML UDC NG SCH ×6 (01:09→20:42)
[2020-04-29 05:01] VITALS: BP 126/68
--- NOTE | 2020-04-29 06:51 | NUR ---
Patient slept intermittently. On O2 at 3lpm via NC saturating at 95-96%. Vpacing on Tele monitor. NGT feeding tolerated well. HOB elevated for aspirations prec. Suctioned and oral care done. F/C intact and draining clear yellow urine. On bilateral mittens to prevent pulling of NGT. Turned and repositioned. Will endorse accordingly
[2020-04-29] MEDS: THIAMINE HCL 100 MG TABLET NG SCH ×2 (08:36→20:45)
[2020-04-29] MEDS: CHOLECALCIFEROL 1,000 UNIT TABLET NG SCH (08:36)
[2020-04-29] MEDS: ZINC SULFATE 220 MG CAPSULE NG SCH (08:37)
[2020-04-29] MEDS: ASCORBIC ACID 500 MG TABLET NG SCH ×2 (08:37→20:44)
[2020-04-29] MEDS: ALLOPURINOL 100 MG TABLET NG SCH (08:37)
[2020-04-29] MEDS: PANTOPRAZOLE SODIUM 40 MG VIAL IV SCH ×2 (08:39→20:43)
[2020-04-29] MEDS: levETIRAcetam IV 1,000 MG in IV DEXTROSE 5% 100 ML IV SCH ×2 (08:39→20:42)
[2020-04-29] MEDS: Z GUARD REMEDY PASTE 57 GM TUBE TOP SCH ×2 (08:40→20:44)
[2020-04-29] MEDS: CLOTRIMAZOLE 1% CREAM 30 GM TUBE TOP SCH ×2 (08:40→20:44)
[2020-04-29 12:00] VITALS: BP 122/66
[2020-04-29 14:43] LABS: BASOPHILS # (AUTO) 0.1 K/uL (0.0-8.0); BASOPHILS % (AUTO) 0.8 % (0.0-2.0); EOSINOPHILS # (AUTO) 0.1 K/uL (0.0-0.7); EOSINOPHILS % (AUTO) 0.7 % (0.0-7.0); HEMATOCRIT 22.2 % (36.7-47.1); LYMPHOCYTES # (AUTO) 1.1 K/uL (20.0-40.0); LYMPHOCYTES % (AUTO) 11.8 % (20.5-51.5); MEAN CORPUSCULAR HEMOGLOBIN 30.5 uug (23.8-33.4); MEAN CORPUSCULAR HGB CONC 32 g/dL (32.5-36.3); MEAN CORPUSCULAR VOLUME 94.3 fL (73.0-96.2); MONOCYTES % (AUTO) 11.2 % (0.0-11.0); NEUTROPHILS % (AUTO) 75.5 % (38.5-71.5); WHITE BLOOD COUNT (AUTO) 9.3 K/uL (3.6-10.2)
[2020-04-29 14:55] LABS: CREATININE 1.1 mg/dL (0.6-1.3); MAGNESIUM 1.9 mg/dL (1.8-2.4); PHOSPHOROUS 3.6 mg/dL (2.5-4.9); POTASSIUM 3.9 mmol/L (3.5-5.1)
[2020-04-29 15:13] LABS: PLATELET COUNT (AUTO) 268 K/uL (152-348); RED BLOOD CELL COUNT(AUTO) 2.35 MIL/uL (4.06-5.63)
[2020-04-29 15:14] LABS: HEMOGLOBIN 7.2 g/dL (12.5-16.3)
[2020-04-29 15:28] LABS: BAND % (MANUAL) 5 % (0-10); EOSINOPHILS % (MANUAL) 1 % (0-8); LYMPHOCYTES % (MANUAL) 10 % (20-40); METAMYELOCYTES % 1 % (0-1); MONOCYTES % (MANUAL) 10 % (2-10); NEUTROPHILS % (MANUAL) 73 % (42-75)
[2020-04-29 16:00] VITALS: BP 118/56
--- NOTE | 2020-04-29 19:35 | NUR ---
Received patient appears sleeping with HOB elevated with continuos O2 at 3L/min via NC, saturating 95%. RT at bedside performing assessment . No s/s of respiratory distress. NGT intact and patent with continuos Glucerna 1.2 at 30 cc/hour via Enteral pump. No gastric residual noted. No s/s of aspiration. PICC line intact on ELMIRA, Mid line LAC intact and patent with no s/s of infiltration. V pacing on the monitor. F/C intact and patent with moderate amount of clear urine output. Safety measure and fall precaution maintained. Continue care as planned.
[2020-04-29] MEDS: MELATONIN 3 MG TABLET NG SCH (20:45)
[2020-04-29] MEDS: ATORVASTATIN 40 MG TABLET NG SCH (20:45)
[2020-04-29 20:48] VITALS: BP 105/64
[2020-04-30] VITALS: BP 108/56
[2020-04-30] MEDS: GUAIFENESIN SUGAR FREE 100 MG/5 ML UDC NG SCH ×7 (00:29→23:42)
[2020-04-30] MEDS: IPRATROPIUM BROMIDE 0.5 MG/2.5 ML NEBU NEB SCH ×6 (03:30→23:46)
[2020-04-30] MEDS: ALBUTEROL SULFATE 2.5 MG/3 ML NEBU NEB SCH ×6 (03:30→23:46)
[2020-04-30 04:36] VITALS: BP 110/54
[2020-04-30 05:58] LABS: MAGNESIUM 1.6 mg/dL (1.8-2.4); PHOSPHOROUS 3.3 mg/dL (2.5-4.9); POTASSIUM 4.1 mmol/L (3.5-5.1)
--- NOTE | 2020-04-30 06:04 | NUR ---
Shift End Report: VS stable. Slept in between care. No s/s of pain/discomforts presented.No s/s of respiratory distress. Suctioned orally/nasally as needed, tolerated well. NO s/s of aspiration. Tolerated NGT feeding . PICC/Mid line remain intact and patent with no s/s of infiltration on IV site. F/C remain intact and patent with adequate amount of clear yellow output. All needs attended and met. No significant event reported all night. Continue current plan of care.
[2020-04-30] MEDS: ACETYLCYSTEINE 20% 800 MG/4 ML VIAL NEB SCH ×3 (06:44→23:46)
--- NOTE | 2020-04-30 07:15 | NUR ---
RECEIVED PATIENT IN BED AWAKE ALERT NON VERBAL ALL NEEDS ANTICIPATED AND SATISFIED MAX ASSIST FOR ALL ADL TURNED AND REPOSITIONED Q2H FOR COMFORT ALL NEEDS ANTICIPATED AND SATISFIED .ON O2 AT 3L/M BY NASAL CANULLA MADE COMFORTABLE WILL CONTINUE TO OBSERVE.
--- NOTE | 2020-04-30 07:55 | NUR ---
PATIENT SEEN AND EXAMINED BY DR TUNDE FINNEGAN WITH NEW ORDERS AND NOTED.
[2020-04-30] MEDS: PANTOPRAZOLE SODIUM 40 MG VIAL IV SCH ×2 (08:35→20:27)
[2020-04-30] MEDS: levETIRAcetam IV 1,000 MG in IV DEXTROSE 5% 100 ML IV SCH ×2 (08:35→20:29)
[2020-04-30] MEDS: CHOLECALCIFEROL 1,000 UNIT TABLET NG SCH (08:36)
[2020-04-30] MEDS: ALLOPURINOL 100 MG TABLET NG SCH (08:36)
[2020-04-30] MEDS: ZINC SULFATE 220 MG CAPSULE NG SCH (08:36)
[2020-04-30] MEDS: ASCORBIC ACID 500 MG TABLET NG SCH ×2 (08:36→20:27)
[2020-04-30] MEDS: THIAMINE HCL 100 MG TABLET NG SCH ×2 (08:36→20:27)
[2020-04-30 08:37] LABS: WHITE BLOOD COUNT (AUTO) 10.6 K/UL (4.0-11.2)
[2020-04-30 08:38] LABS: MEAN CORPUSCULAR HEMOGLOBIN 30.9 UUG (27.0-31.0); MEAN CORPUSCULAR HGB CONC 33 g/dL (32.0-37.0); MEAN CORPUSCULAR VOLUME 94.3 FL (82.0-92.0)
[2020-04-30 08:39] LABS: BASOPHILS # (AUTO) 0.1 K/uL (0.0-8.0); BASOPHILS % (AUTO) 1.4 % (0.0-2.0); EOSINOPHILS # (AUTO) 0.1 K/uL (0.0-0.7); EOSINOPHILS % (AUTO) 0.9 % (0.0-7.0); LYMPHOCYTES # (AUTO) 1.1 K/UL (0.8-4.8); LYMPHOCYTES % (AUTO) 11.5 % (20.5-51.5); MONOCYTES # (AUTO) 1.2 K/UL (0.1-1.30); MONOCYTES % (AUTO) 12.3 % (0.0-11.0); NEUTROPHILS # (AUTO) 7.2 K/UL (1.8-8.9); NEUTROPHILS % (AUTO) 73.9 % (38.5-71.5)
[2020-04-30 08:40] LABS: PLATELET COUNT (AUTO) 283 K/UL (150-450)
[2020-04-30] MEDS: CLOTRIMAZOLE 1% CREAM 30 GM TUBE TOP SCH ×2 (09:01→20:29)
[2020-04-30] MEDS: Z GUARD REMEDY PASTE 57 GM TUBE TOP SCH ×2 (09:01→20:29)
--- NOTE | 2020-04-30 09:14 | NUR ---
RECEIVED H/H REPORT FROM LAB .06/21.5 TRENDING UP IN THE RIGHT DIRECTION AT THIS TIME.
[2020-04-30 09:16] LABS: HEMATOCRIT 23.5 % (40-50); HEMOGLOBIN 7.7 G/DL (14.0-18.0)
--- NOTE | 2020-04-30 12:00 | NUR ---
PATIENT SEEN AND EXAMINED BY DR CUETO WITH NEW ORDERS AND NOTEDE.
[2020-04-30] MEDS: MAGNESIUM SULFATE/D5W 100 ML IV SCH ×2 (12:16→13:17)
[2020-04-30 12:25] VITALS: BP 111/40
[2020-04-30] MEDS: GLUCERNA 1.2 1000ML LIQUID NG PRN (13:26)
[2020-04-30 15:35] VITALS: BP 118/55
--- NOTE | 2020-04-30 18:00 | NUR ---
TOLERATED NGT FEEDINGS ORDERED FREQUENT SUCTIONING WITH OCCASSIONAL COUGH EPISODES CONTINUE TO REQUIRE BILATERAL MITTENS TO PREVENT FROM PULLING OUT TUBES CIRCULATION CHECKED Q2H.MADE COMFORTABLE.
--- NOTE | 2020-04-30 18:47 | NUR ---
PER THE STEAK SAUCE MAKER PATIENT IS FOR GT INSERTION TOMORROW TIME IS UNKNOWN YET AND THAT CONSCENT WAS OBTAINED FROM THE PATIENTS CONSERVATOR AWAITING FOR DOCUMENTATION
--- NOTE | 2020-04-30 19:45 | NUR ---
Received patient asleep. Patient shows no signs or symptoms of distress at this time. NG-tube feeding running at 35cc/hr. Will be discontinued at midnight tonight. Bed set to lowest position. Call light within reach. Will continue to monitor patient.
[2020-04-30 20:00] VITALS: BP 138/69
[2020-04-30] MEDS: ATORVASTATIN 40 MG TABLET NG SCH (20:27)
[2020-04-30] MEDS: MELATONIN 3 MG TABLET NG SCH (20:27)
[2020-05-01] VITALS (11 sets, daily range): BP systolic 100–133; BP diastolic 55–80
--- NOTE | 2020-05-01 | NUR ---
Tube feeding held for procedure in AM. Will continue to monitor patient.
[2020-05-01] MEDS: GUAIFENESIN SUGAR FREE 100 MG/5 ML UDC NG SCH ×4 (03:24→15:14)
[2020-05-01] MEDS: ALBUTEROL SULFATE 2.5 MG/3 ML NEBU NEB SCH ×6 (03:53→23:12)
[2020-05-01] MEDS: IPRATROPIUM BROMIDE 0.5 MG/2.5 ML NEBU NEB SCH ×6 (03:53→23:12)
--- NOTE | 2020-05-01 06:47 | NUR ---
Patient shows no signs or symptoms of distress throughout the shift. Vital signs table. Pt NPO since midnight. Consent obtained by day shift nurse on 04/30/2020 for procedure. Will endorse patient to day shift nurse in stable condition.
[2020-05-01 07:03] LABS: CREATININE 1.2 mg/dL (0.6-1.3); MAGNESIUM 2.3 mg/dL (1.8-2.4); PHOSPHOROUS 3.8 mg/dL (2.5-4.9); POTASSIUM 4.5 mmol/L (3.5-5.1)
[2020-05-01 07:09] LABS: WHITE BLOOD COUNT (AUTO) 11.1 K/UL (4.0-11.2)
[2020-05-01 07:10] LABS: MEAN CORPUSCULAR HEMOGLOBIN 30.7 UUG (27.0-31.0); MEAN CORPUSCULAR HGB CONC 33 g/dL (32.0-37.0); MEAN CORPUSCULAR VOLUME 94.4 FL (82.0-92.0)
[2020-05-01 07:11] LABS: BASOPHILS % (AUTO) 0.8 % (0.0-2.0); LYMPHOCYTES # (AUTO) 1.1 K/UL (0.8-4.8); LYMPHOCYTES % (AUTO) 10.6 % (20.5-51.5); MONOCYTES % (AUTO) 14.1 % (0.0-11.0); NEUTROPHILS # (AUTO) 7.4 K/UL (1.8-8.9); NEUTROPHILS % (AUTO) 73.5 % (38.5-71.5); PLATELET COUNT (AUTO) 279 K/UL (150-450)
[2020-05-01 07:12] LABS: BASOPHILS # (AUTO) 0.1 K/uL (0.0-8.0); EOSINOPHILS # (AUTO) 0.1 K/uL (0.0-0.7); MONOCYTES # (AUTO) 1.4 K/UL (0.1-1.30)
[2020-05-01 07:17] LABS: HEMATOCRIT 22.7 % (40-50); HEMOGLOBIN 7.4 G/DL (14.0-18.0)
--- NOTE | 2020-05-01 07:30 | NUR ---
Critical H/H notifed dr Diaz. New order received for blood transfusion. Pt confused. NGT at line 55 as prior. NGT audible in stomach. bed alarm on. Call light is within reach.
[2020-05-01] MEDS: ACETYLCYSTEINE 20% 800 MG/4 ML VIAL NEB SCH ×3 (07:36→23:12)
[2020-05-01] MEDS: levETIRAcetam IV 1,000 MG in IV DEXTROSE 5% 100 ML IV SCH ×2 (09:05→21:03)
[2020-05-01] MEDS: ZINC SULFATE 220 MG CAPSULE NG SCH (09:06)
[2020-05-01] MEDS: CLOTRIMAZOLE 1% CREAM 30 GM TUBE TOP SCH ×2 (09:06→21:36)
[2020-05-01] MEDS: PANTOPRAZOLE SODIUM 40 MG VIAL IV SCH ×2 (09:06→21:03)
[2020-05-01] MEDS: CHOLECALCIFEROL 1,000 UNIT TABLET NG SCH (09:06)
[2020-05-01] MEDS: ALLOPURINOL 100 MG TABLET NG SCH (09:06)
[2020-05-01] MEDS: THIAMINE HCL 100 MG TABLET NG SCH (09:06)
[2020-05-01] MEDS: ASCORBIC ACID 500 MG TABLET NG SCH (09:06)
[2020-05-01] MEDS: Z GUARD REMEDY PASTE 57 GM TUBE TOP SCH ×2 (09:07→21:07)
[2020-05-01] MEDS ORDERED: IRR STERIL WATER FOR IRR 1000 ML BOTTLE IR ONE (10:30)
[2020-05-01] MEDS ORDERED: PROPOFOL 200 MG/20 ML BOTTLE IV ONE (10:30)
[2020-05-01] MEDS ORDERED: IV LACTATED RINGERS SOLUTION 1,000 ML BAG IV ONE (10:30)
[2020-05-01] MEDS ORDERED: CEFAZOLIN 1 G VIAL IM ONE (10:30)
--- NOTE | 2020-05-01 17:51 | NUR ---
Pt is in no acute distress. Pt received from PEG placement. Pt tolerated procedure. Blood transfusion finished without any s/s of reaction.
[2020-05-01] MEDS: GUAIFENESIN SUGAR FREE 100 MG/5 ML UDC PEG SCH (20:59)
[2020-05-01] MEDS: ATORVASTATIN 40 MG TABLET PEG SCH (21:03)
[2020-05-01] MEDS: MELATONIN 3 MG TABLET PEG SCH (21:04)
[2020-05-01] MEDS: ASCORBIC ACID 500 MG TABLET PEG SCH (21:04)
[2020-05-01] MEDS: THIAMINE HCL 100 MG TABLET PEG SCH (21:08)
[2020-05-01] MEDS: IV NORMAL SALINE 250 ML IV PRN (22:23)
[2020-05-02] MEDS: GUAIFENESIN SUGAR FREE 100 MG/5 ML UDC PEG SCH ×7 (01:00→23:47)
[2020-05-02] MEDS: ALBUTEROL SULFATE 2.5 MG/3 ML NEBU NEB SCH ×6 (02:47→23:13)
[2020-05-02] MEDS: IPRATROPIUM BROMIDE 0.5 MG/2.5 ML NEBU NEB SCH ×6 (02:47→23:13)
[2020-05-02 05:09] VITALS: BP 109/51
--- NOTE | 2020-05-02 06:43 | NUR ---
Patient slept well. On O2 at 2lpm via NC saturating at 97%. s/p PEG placement, abdominal binder in placed. Meds given via PEG tube, placement checked. F/C intact and draining clear yellow urine. Suctioned and oral care provided. Turned and repositioned. Will endorse accordingly
[2020-05-02 07:24] LABS: BASOPHILS % (AUTO) 0.3 % (0.0-2.0); EOSINOPHILS # (AUTO) 0.1 K/uL (0.0-0.7); EOSINOPHILS % (AUTO) 0.6 % (0.0-7.0); HEMATOCRIT 31.1 % (36.7-47.1); HEMOGLOBIN 10.2 g/dL (12.5-16.3); LYMPHOCYTES # (AUTO) 1.1 K/uL (20.0-40.0); LYMPHOCYTES % (AUTO) 8.7 % (20.5-51.5); MEAN CORPUSCULAR HEMOGLOBIN 30.4 uug (23.8-33.4); MEAN CORPUSCULAR HGB CONC 33 g/dL (32.5-36.3); MEAN CORPUSCULAR VOLUME 92.8 fL (73.0-96.2); MONOCYTES # (AUTO) 1.1 K/uL (2.0-10.0); MONOCYTES % (AUTO) 8.9 % (0.0-11.0); NEUTROPHILS # (AUTO) 10.3 K/uL (1.8-8.9); NEUTROPHILS % (AUTO) 81.5 % (38.5-71.5); PLATELET COUNT (AUTO) 223 K/uL (152-348); RED BLOOD CELL COUNT(AUTO) 3.35 MIL/uL (4.06-5.63); WHITE BLOOD COUNT (AUTO) 12.6 K/uL (3.6-10.2)
[2020-05-02] MEDS: ACETYLCYSTEINE 20% 800 MG/4 ML VIAL NEB SCH ×3 (07:27→23:14)
[2020-05-02 07:37] LABS: CREATININE 1.1 mg/dL (0.6-1.3); PHOSPHOROUS 4.2 mg/dL (2.5-4.9); POTASSIUM 4.8 mmol/L (3.5-5.1)
[2020-05-02] MEDS: CLOTRIMAZOLE 1% CREAM 30 GM TUBE TOP SCH ×2 (09:21→20:39)
[2020-05-02] MEDS: Z GUARD REMEDY PASTE 57 GM TUBE TOP SCH ×2 (09:21→20:40)
[2020-05-02] MEDS: ALLOPURINOL 100 MG TABLET PEG SCH (09:25)
[2020-05-02] MEDS: ZINC SULFATE 220 MG CAPSULE PEG SCH (09:26)
[2020-05-02] MEDS: CHOLECALCIFEROL 1,000 UNIT TABLET PEG SCH (09:26)
[2020-05-02] MEDS: PANTOPRAZOLE SODIUM 40 MG VIAL IV SCH ×2 (09:26→20:39)
[2020-05-02] MEDS: ASCORBIC ACID 500 MG TABLET PEG SCH ×2 (09:26→20:38)
[2020-05-02] MEDS: THIAMINE HCL 100 MG TABLET PEG SCH ×2 (09:26→20:38)
[2020-05-02] MEDS: levETIRAcetam IV 1,000 MG in IV DEXTROSE 5% 100 ML IV SCH ×2 (10:09→20:38)
[2020-05-02] MEDS: GLUCERNA 1.2 1000ML LIQUID PEG PRN (10:32)
--- NOTE | 2020-05-02 10:41 | NUR ---
Pt received, assessed, no acute distress, SOB, or Pain observed. 2L NC in place. VSS. Pt nonverbal. FC intact, draining well. Left AC midline flushed and patent. Left triple lumen PICC flushed and all patent. PEG tube present, placement checked, 0 residual, medications administered through, and Glucerna 1.2 initiated at 30ml/hr. Will continue to monitor and follow up.
[2020-05-02] MEDS: ACETAMINOPHEN 650 MG SUPP.RECT RC PRN (11:23)
[2020-05-02 11:51] VITALS: BP 147/74
--- NOTE | 2020-05-02 12:23 | NUR ---
Elevated temp of 100 F noted. PRN Tylenol sup. administered per PRN orders, proven effective for reducing temp to 98.8 F. Pt repositioned for comfort. Will continue to monitor.
[2020-05-02 15:57] VITALS: BP 107/49
[2020-05-02 15:59] VITALS: BP 125/75
[2020-05-02 16:01] VITALS: BP 125/75
--- NOTE | 2020-05-02 18:45 | NUR ---
New order received via telephone for Pt to revert to original DNR code status since 24hrs from Sx. Code status changed. Dietitian notes dictate flushing TID with 250ml, initiated. Pt well tolerating nutrition at 30ml/hr. Increase by 10cc/hr Q4-8hrs, until goal of 65ml/hr x22hrs is reached. Oral care provided for Pt. No acute distress will continue to monitor and endorse.
[2020-05-02 20:14] VITALS: BP 123/58
[2020-05-02] MEDS: ATORVASTATIN 40 MG TABLET PEG SCH (20:38)
[2020-05-02] MEDS: MELATONIN 3 MG TABLET PEG SCH (20:39)
--- NOTE | 2020-05-02 21:30 | NUR ---
As per charge nurse and piano case maker, patient has a new POLST from his conservator Lo Arriola which states that he is Full code. Code status changed to Full code
[2020-05-03] MEDS: ALBUTEROL SULFATE 2.5 MG/3 ML NEBU NEB SCH ×6 (03:04→22:31)
[2020-05-03] MEDS: IPRATROPIUM BROMIDE 0.5 MG/2.5 ML NEBU NEB SCH ×6 (03:04→22:31)
[2020-05-03 04:00] VITALS: BP 116/60
[2020-05-03] MEDS: GUAIFENESIN SUGAR FREE 100 MG/5 ML UDC PEG SCH ×5 (04:57→20:23)
[2020-05-03 07:11] LABS: BASOPHILS # (AUTO) 0.1 K/uL (0.0-8.0); BASOPHILS % (AUTO) 0.9 % (0.0-2.0); EOSINOPHILS # (AUTO) 0.1 K/uL (0.0-0.7); EOSINOPHILS % (AUTO) 1.3 % (0.0-7.0); HEMATOCRIT 28.4 % (36.7-47.1); HEMOGLOBIN 9.6 g/dL (12.5-16.3); LYMPHOCYTES % (AUTO) 10.3 % (20.5-51.5); MEAN CORPUSCULAR HEMOGLOBIN 31.4 uug (23.8-33.4); MEAN CORPUSCULAR HGB CONC 34 g/dL (32.5-36.3); MONOCYTES # (AUTO) 1.1 K/uL (2.0-10.0); MONOCYTES % (AUTO) 10.6 % (0.0-11.0); NEUTROPHILS # (AUTO) 7.8 K/uL (1.8-8.9); NEUTROPHILS % (AUTO) 76.9 % (38.5-71.5); PLATELET COUNT (AUTO) 208 K/uL (152-348); RED BLOOD CELL COUNT(AUTO) 3.05 MIL/uL (4.06-5.63); WHITE BLOOD COUNT (AUTO) 10.1 K/uL (3.6-10.2)
[2020-05-03 07:32] LABS: CREATININE 1.1 mg/dL (0.6-1.3); PHOSPHOROUS 3.4 mg/dL (2.5-4.9)
[2020-05-03] MEDS: ACETYLCYSTEINE 20% 800 MG/4 ML VIAL NEB SCH ×3 (08:55→22:31)
[2020-05-03] MEDS: Z GUARD REMEDY PASTE 57 GM TUBE TOP SCH ×2 (09:30→21:02)
[2020-05-03] MEDS: PANTOPRAZOLE SODIUM 40 MG VIAL IV SCH ×2 (09:30→20:24)
[2020-05-03] MEDS: CHOLECALCIFEROL 1,000 UNIT TABLET PEG SCH (09:30)
[2020-05-03] MEDS: ZINC SULFATE 220 MG CAPSULE PEG SCH (09:30)
[2020-05-03] MEDS: ALLOPURINOL 100 MG TABLET PEG SCH (09:30)
[2020-05-03] MEDS: THIAMINE HCL 100 MG TABLET PEG SCH ×2 (09:30→20:24)
[2020-05-03] MEDS: ASCORBIC ACID 500 MG TABLET PEG SCH ×2 (09:30→20:24)
[2020-05-03] MEDS: CLOTRIMAZOLE 1% CREAM 30 GM TUBE TOP SCH ×2 (09:30→21:02)
[2020-05-03] MEDS: levETIRAcetam IV 1,000 MG in IV DEXTROSE 5% 100 ML IV SCH ×2 (09:33→20:23)
[2020-05-03 15:10] VITALS: BP 135/70
--- NOTE | 2020-05-03 19:00 | NUR ---
pt. resting in bed alert to self. pt. had low grade fever 99.8 today. removed blankets and started cooling measures. rechecked temperature at 98.6. suction pt. as needed. L UA picc line in place and L AC midline in place and flushing well. G tube in place with abdominal binder. <30 cc residual. Advanced as instructed to goal of 65 cc/hr. flushed g tube with water 250 cc x2 times for 500 cc on my shift. discharge in place to charles chavez working with case management. safety measures in place. call light within reach. endorsed to pm nurse
[2020-05-03 20:03] VITALS: BP 115/59
[2020-05-03] MEDS: ATORVASTATIN 40 MG TABLET PEG SCH (20:24)
[2020-05-03] MEDS: MELATONIN 3 MG TABLET PEG SCH (20:24)
[2020-05-03] MEDS: GLUCERNA 1.2 1000ML LIQUID PEG PRN (23:23)
[2020-05-04] VITALS: BP 117/62
[2020-05-04] MEDS: GUAIFENESIN SUGAR FREE 100 MG/5 ML UDC PEG SCH ×6 (00:28→20:20)
[2020-05-04] MEDS: ALBUTEROL SULFATE 2.5 MG/3 ML NEBU NEB SCH ×5 (02:31→19:27)
[2020-05-04] MEDS: IPRATROPIUM BROMIDE 0.5 MG/2.5 ML NEBU NEB SCH ×5 (02:31→19:27)
[2020-05-04 04:00] VITALS: BP 136/64
--- NOTE | 2020-05-04 07:15 | NUR ---
Received patient resting in bed, awake and alert. Patient shows no S/S of acute distress or pain. bed in lowest position, side rails up x2, call light within reach, will continue to monitor.
[2020-05-04] MEDS: levETIRAcetam IV 1,000 MG in IV DEXTROSE 5% 100 ML IV SCH ×2 (08:27→20:20)
[2020-05-04] MEDS: PANTOPRAZOLE SODIUM 40 MG VIAL IV SCH ×2 (08:28→20:20)
[2020-05-04] MEDS: ACETYLCYSTEINE 20% 800 MG/4 ML VIAL NEB SCH ×2 (08:28→15:16)
[2020-05-04] MEDS: THIAMINE HCL 100 MG TABLET PEG SCH ×2 (08:30→20:21)
[2020-05-04] MEDS: ALLOPURINOL 100 MG TABLET PEG SCH (08:30)
[2020-05-04] MEDS: ASCORBIC ACID 500 MG TABLET PEG SCH ×2 (08:30→20:21)
[2020-05-04] MEDS: CHOLECALCIFEROL 1,000 UNIT TABLET PEG SCH (08:30)
[2020-05-04] MEDS: ZINC SULFATE 220 MG CAPSULE PEG SCH (08:30)
[2020-05-04] MEDS: Z GUARD REMEDY PASTE 57 GM TUBE TOP SCH ×2 (08:31→20:21)
[2020-05-04] MEDS: CLOTRIMAZOLE 1% CREAM 30 GM TUBE TOP SCH ×2 (08:31→20:21)
[2020-05-04 13:46] VITALS: BP 130/69
[2020-05-04] MEDS: GLUCERNA 1.2 1000ML LIQUID PEG PRN (20:19)
[2020-05-04 20:20] VITALS: BP 107/54
[2020-05-04] MEDS: ATORVASTATIN 40 MG TABLET PEG SCH (20:20)
[2020-05-04] MEDS: MELATONIN 3 MG TABLET PEG SCH (20:21)
[2020-05-04] MEDS: ACETAMINOPHEN 650 MG SUPP.RECT RC PRN (22:35)
[2020-05-05] MEDS: IPRATROPIUM BROMIDE 0.5 MG/2.5 ML NEBU NEB SCH ×7 (00:35→22:34)
[2020-05-05] MEDS: ALBUTEROL SULFATE 2.5 MG/3 ML NEBU NEB SCH ×7 (00:35→22:34)
[2020-05-05] MEDS: ACETYLCYSTEINE 20% 800 MG/4 ML VIAL NEB SCH ×4 (00:39→22:33)
[2020-05-05] MEDS: GUAIFENESIN SUGAR FREE 100 MG/5 ML UDC PEG SCH ×7 (00:56→23:32)
[2020-05-05 05:28] VITALS: BP 121/54
--- NOTE | 2020-05-05 07:45 | NUR ---
CONFUSED DISORIENTED MAX ASSIST FOR ALL ADL CONFUSED AND DISORIENTED NEEDED FREQUENT SUCTIONING WITH OCCASSIONAL COUGHING EPISODES GT FEEDINGS OFF AT THIS TIME TURNED AND REPOSITIONED MADE COMFORTABLE WILL CONTINUE TO OBSERVE.
[2020-05-05] MEDS: PANTOPRAZOLE SODIUM 40 MG VIAL IV SCH ×2 (08:46→20:19)
[2020-05-05] MEDS: ASCORBIC ACID 500 MG TABLET PEG SCH ×2 (08:46→20:20)
[2020-05-05] MEDS: CHOLECALCIFEROL 1,000 UNIT TABLET PEG SCH (08:47)
[2020-05-05] MEDS: THIAMINE HCL 100 MG TABLET PEG SCH ×2 (08:47→20:19)
[2020-05-05] MEDS: ZINC SULFATE 220 MG CAPSULE PEG SCH (08:47)
[2020-05-05] MEDS: Z GUARD REMEDY PASTE 57 GM TUBE TOP SCH ×2 (08:48→20:21)
[2020-05-05] MEDS: ALLOPURINOL 100 MG TABLET PEG SCH (08:48)
[2020-05-05] MEDS: levETIRAcetam IV 1,000 MG in IV DEXTROSE 5% 100 ML IV SCH ×2 (08:50→20:20)
[2020-05-05] MEDS: CLOTRIMAZOLE 1% CREAM 30 GM TUBE TOP SCH ×2 (10:46→20:20)
--- NOTE | 2020-05-05 11:41 | NUR ---
DR ESCUDERO HERE TO SEE PATIENT AWARE THAT PATIENTS WBC IS 24.0 FROM 10.1 YESTERDAY STATED WILL TREAT THE ELEVATED WBC EVEN THOUGH THEY WILL RECHECK BASED ON THE FACT THAT PATIENT HAS A FEVER YESTERDAY.
[2020-05-05 12:03] VITALS: BP 101/59
[2020-05-05 12:14] LABS: BASOPHILS # (AUTO) 0.2 K/uL (0.0-8.0); BASOPHILS % (AUTO) 0.7 % (0.0-2.0); EOSINOPHILS % (AUTO) 0.2 % (0.0-7.0); HEMATOCRIT 32.9 % (36.7-47.1); HEMOGLOBIN 10.4 g/dL (12.5-16.3); LYMPHOCYTES # (AUTO) 0.6 K/uL (20.0-40.0); LYMPHOCYTES % (AUTO) 2.3 % (20.5-51.5); MEAN CORPUSCULAR HEMOGLOBIN 30.2 uug (23.8-33.4); MEAN CORPUSCULAR HGB CONC 32 g/dL (32.5-36.3); MEAN CORPUSCULAR VOLUME 95.2 fL (73.0-96.2); MONOCYTES % (AUTO) 3.5 % (0.0-11.0); NEUTROPHILS # (AUTO) 25.7 K/uL (1.8-8.9); NEUTROPHILS % (AUTO) 93.3 % (38.5-71.5); PLATELET COUNT (AUTO) 362 K/uL (152-348); RED BLOOD CELL COUNT(AUTO) 3.46 MIL/uL (4.06-5.63)
[2020-05-05 12:16] LABS: CARBON DIOXIDE 27 mmol/L (21-32); CHLORIDE 106 mmol/L (98-107); CREATININE 1.4 mg/dL (0.6-1.3); GLUCOSE 179 mg/dL (74-106); UREA NITROGEN, BLOOD 25 mg/dL (7-18)
[2020-05-05 12:22] LABS: POTASSIUM 6.2 mmol/L (3.5-5.1)
[2020-05-05 12:42] LABS: *BILIRUBIN,URIN NEGATIVE (NEGATIVE); *BLOOD, URINE 2+ (NEGATIVE); *COLOR,URINE YELLOW (YELLOW); *KETONES,URINE NEGATIVE (NEGATIVE); *UROBILINOGEN,URINE 0.2 E.U./dl (NORMAL); LEUKOCYTE ESTERASE ,URINE 1+ (NEGATIVE); NITRITE, URINE NEGATIVE (NEGATIVE); PH,URINE 8.5 (5.0-8.0); UGLUCOSE NEGATIVE (NEGATIVE)
[2020-05-05] MEDS ORDERED: FUROSEMIDE 20 MG/2 ML VIAL IV ONE ×2 (12:45→16:30)
[2020-05-05] MEDS ORDERED: SODIUM POLYSTYRENE SULFONATE 15 G/60 ML LIQUID UDC GT ONE (12:45)
[2020-05-05 12:50] LABS: *CLARITY,URINE SLIGHTLY CLOUDY (CLEAR)
[2020-05-05 12:54] LABS: BACTERIA,URINE MANY /HPF (NONE SEEN)
[2020-05-05 12:55] LABS: SQUAMOUS EPITHELIAL CELL,UR FEW /HPF (NONE SEEN)
[2020-05-05 13:12] LABS: WHITE BLOOD COUNT (AUTO) 27.5 K/uL (3.6-10.2)
[2020-05-05 13:15] LABS: BAND % (MANUAL) 5 % (0-10); LYMPHOCYTES % (MANUAL) 4 % (20-40); MONOCYTES % (MANUAL) 5 % (2-10); NEUTROPHILS % (MANUAL) 86 % (42-75)
--- NOTE | 2020-05-05 13:48 | NUR ---
DR ESCUDERO HERE TO SEE PATIENT NOTIFIED HER THAT PATIENT IS SO CONGESTED HAS BEEN SUCTIONED NUMEROUS TIMES WAS SEEN BY DR CONSTANTINO WHO ORDERED CHEST XRAY MIGHT NEED SOME DIURETICS WITH NEW ORDER TO GIVE A DOSE OF LASIX AND NOTED.
[2020-05-05 16:00] VITALS: BP 93/36
--- NOTE | 2020-05-05 16:12 | NUR ---
CONGESTION IS WORSE O2 SAT IS NOW 84 DESPITE INCREASE IN O2 FLOW AND NON REBREATHER CALLED DR CONSTANTINO SPOKE WITH DR VERGARA SUPERVISOR FRAMING MILL WITH ORDERS WANTS PATIENT ON BIPAP AND TO TITRATE TO KEEP SATS ABOVE 92 REPEAT CXR AND ABG IN AM AND REPEAT REPEAT A DOSE OF LASIX AND NOTED RESPIRATORY NOTIFIED PATIENT MADE COMFORTABLE REMAIN ON GT FEEDINGS WITH NO GASTRIC RESIDUAL AT THIS TIME.WILL CONTINUE TO OBSERVE
--- NOTE | 2020-05-05 18:00 | NUR ---
REMAIN ON BIPAP ORDERED SATS NOW IS BETWEEN 93-95 TEMP IS 101.2 TYLENOL ORDERED COOLING MEASURES MADE COMFORTABLE PATIENT IS NOW TELEMETRY V PACING WILL CONTINUE TO OBSERVE
[2020-05-05] MEDS: GLUCERNA 1.2 1000ML LIQUID PEG PRN (18:10)
[2020-05-05] MEDS: ACETAMINOPHEN 650 MG SUPP.RECT RC PRN (18:27)
[2020-05-05] MEDS: ATORVASTATIN 40 MG TABLET PEG SCH (20:19)
[2020-05-05] MEDS: MELATONIN 3 MG TABLET PEG SCH (20:20)
[2020-05-05 20:47] VITALS: BP 81/33
[2020-05-05 20:52] VITALS: BP 100/49
--- NOTE | 2020-05-05 20:55 | NUR ---
PT FEBRILE AT 101.4; RECENTLY GIVEN WITH TYLENOL SUPP; BP 104/49; COOLING MEASURES DONE; BED BATH DONE;
[2020-05-05] MEDS ORDERED: VANCOMYCIN IV 1,000 MG in IV DEXTROSE 5% 250 ML IV SCH (22:00)
[2020-05-05 22:15] VITALS: BP 114/64
[2020-05-05] MEDS ORDERED: VANCOMYCIN 1000 MG VIAL ONE (22:32)
[2020-05-05] MEDS ORDERED: MEROPENEM 500 MG VIAL IV ONE (22:34)
[2020-05-05] MEDS: MEROPENEM 0.5 G in IV NORMAL SALINE 50 ML IV SCH (23:30)
[2020-05-06] VITALS (14 sets, daily range): BP systolic 95–124; BP diastolic 43–78
[2020-05-06] MEDS: IPRATROPIUM BROMIDE 0.5 MG/2.5 ML NEBU NEB SCH ×6 (02:31→22:56)
[2020-05-06] MEDS: ALBUTEROL SULFATE 2.5 MG/3 ML NEBU NEB SCH ×6 (02:31→22:57)
[2020-05-06] MEDS: GUAIFENESIN SUGAR FREE 100 MG/5 ML UDC PEG SCH ×6 (04:41→23:13)
[2020-05-06] MEDS: MEROPENEM 0.5 G in IV NORMAL SALINE 50 ML IV SCH (05:51)
[2020-05-06 06:20] LABS: ABG BASE EXCESS -0.1 mmol/L; ABG HCO3 27.7 mmol/L; ABG PCO2 60.2 mmHg (35.0-45.0); ABG PO2 64.3 mmHg (75.0-100.0); ABG SITE RIGHT RADIAL; ABG TOTAL HEMOGLOBIN 11.6 G/dL (13.5-18.0); COHb 0.8 % (0.5-1.5); MetHb 0.5 % (0.0-1.5); O2Hb 89.1 % (94.0-97.0); VENT MODE BIPAP 16/6
[2020-05-06 06:51] LABS: BASOPHILS # (AUTO) 0.1 K/uL (0.0-8.0); BASOPHILS % (AUTO) 0.3 % (0.0-2.0); HEMATOCRIT 33.5 % (36.7-47.1); HEMOGLOBIN 10.5 g/dL (12.5-16.3); LYMPHOCYTES # (AUTO) 0.8 K/uL (20.0-40.0); LYMPHOCYTES % (AUTO) 2.8 % (20.5-51.5); MEAN CORPUSCULAR HEMOGLOBIN 30.3 uug (23.8-33.4); MEAN CORPUSCULAR HGB CONC 31 g/dL (32.5-36.3); MEAN CORPUSCULAR VOLUME 96.4 fL (73.0-96.2); MONOCYTES # (AUTO) 0.7 K/uL (2.0-10.0); MONOCYTES % (AUTO) 2.6 % (0.0-11.0); NEUTROPHILS # (AUTO) 25.4 K/uL (1.8-8.9); NEUTROPHILS % (AUTO) 94.3 % (38.5-71.5); RED BLOOD CELL COUNT(AUTO) 3.47 MIL/uL (4.06-5.63)
[2020-05-06 07:08] LABS: CARBON DIOXIDE 29 mmol/L (21-32); CHLORIDE 108 mmol/L (98-107); CREATININE 1.9 mg/dL (0.6-1.3); GLUCOSE 115 mg/dL (74-106); MAGNESIUM 1.7 mg/dL (1.8-2.4); PHOSPHOROUS 5.6 mg/dL (2.5-4.9); UREA NITROGEN, BLOOD 34 mg/dL (7-18)
--- NOTE | 2020-05-06 07:17 | NUR ---
pt rested in between care; now afebrile and BP maintained; v paced UL SR on monitor; tachycardic ; BM x2; incontinence care done; bed bath rendered repositioned q2h; Covid swab sent to lab.
--- NOTE | 2020-05-06 07:30 | NUR ---
RECEIVED PATIENT IN BED ON BIPAP ORDERED WITH SATS AT 91-92 PERCENT PATIENT IS AWAKE MAKES EYE CONTACT ALL NEEDS ANTICIPATED AND SATISFIED.TURNED AND REPOSITIONED Q2H WITH GT FEEDINGS ORDERED ON A 22 HOUR SCHEDULE WITH NO GASTRIC RESIDUAL AT THIS TIME TELE V PACED WITH UNDERLINING SINUS MADE COMFORTABLE WILL CONTINUE TO OBSERVE.
[2020-05-06] MEDS: ACETYLCYSTEINE 20% 800 MG/4 ML VIAL NEB SCH ×3 (07:35→22:57)
[2020-05-06 07:47] LABS: PLATELET COUNT (AUTO) 282 K/uL (152-348)
--- NOTE | 2020-05-06 07:50 | NUR ---
PT RECEIVED ON CONTINUOUS BIPAP ON SETTINGS OF IPAP 16, EPAP 6, RATE 20, 100% FIO2. BIPAP SETTINGS AND ALARMS CHECKED, ALARMS ARE AUDIBLE. HHN TX NOT GIVEN DUE TO PUI. PT IS TOLERATING BIPAP WELL, NO RESP. DISTRESS NOTED. BVM AT BEDSIDE. BIPAP PLUGGED INTO RED OUTLET. NT SUCTIONED MODERATE AMOUNT OF SECRETIONS. WILL CONTINUE TO MONITOR.
[2020-05-06] MEDS ORDERED: VANCOMYCIN IV 1,000 MG in IV DEXTROSE 5% 250 ML IV ONE (08:00)
[2020-05-06] MEDS: levETIRAcetam IV 1,000 MG in IV DEXTROSE 5% 100 ML IV SCH ×2 (08:35→21:50)
[2020-05-06] MEDS: ALLOPURINOL 100 MG TABLET PEG SCH (08:36)
[2020-05-06] MEDS: CHOLECALCIFEROL 1,000 UNIT TABLET PEG SCH (08:36)
[2020-05-06] MEDS: ASCORBIC ACID 500 MG TABLET PEG SCH ×2 (08:36→21:00)
[2020-05-06] MEDS: ZINC SULFATE 220 MG CAPSULE PEG SCH (08:36)
[2020-05-06] MEDS: PANTOPRAZOLE SODIUM 40 MG VIAL IV SCH ×2 (08:36→21:50)
[2020-05-06] MEDS: THIAMINE HCL 100 MG TABLET PEG SCH ×2 (08:36→21:00)
[2020-05-06 08:56] LABS: BAND % (MANUAL) 20 % (0-10); LYMPHOCYTES % (MANUAL) 4 % (20-40); METAMYELOCYTES % 4 % (0-1); MONOCYTES % (MANUAL) 3 % (2-10); NEUTROPHILS % (MANUAL) 69 % (42-75)
[2020-05-06] MEDS: CLOTRIMAZOLE 1% CREAM 30 GM TUBE TOP SCH ×2 (08:56→21:46)
[2020-05-06] MEDS: Z GUARD REMEDY PASTE 57 GM TUBE TOP SCH ×2 (08:57→21:46)
--- NOTE | 2020-05-06 10:39 | NUR ---
DR CONSTANTINO HERE TO SEE PATIENT WITH ORDERS STATED PATIENT SHOULD BE TRANSFERED TO CCU FOR CONTINUING CARE THE SUBASSEMBLY SUPERVISOR AWARE STATED WILL INFORM ME SOON PATIENT CAN BE TRANSFERED
[2020-05-06] MEDS ORDERED: FUROSEMIDE 40 MG/4 ML VIAL IV SCH (12:15)
--- NOTE | 2020-05-06 13:04 | NUR ---
Clinical Pharmacy Note: Vancomycin Pharmacy to Dose Subjective: To start vancomycin in this 74y/o male for indication of pneumonia. Objective: weight 57kg height 148cm BUN/SCr 25/1.4 (increase from 1.1 baseline) wbc 27.5 temp 98.8 Assessment/Plan As renal function has appeared to become unstable, will dose per level for now. 1gm vancomycin given today at 0800. Next random due with am labs tomorrow am. Will check level in am and re-dose as appropriately. Will follow
--- NOTE | 2020-05-06 13:30 | NUR ---
PATIENT TRANSFERED TO CCU BED 3 BY BED WAS CONVERTED TO NRM AT 15 LITERS BY THE RT AND SATS ARE OKAY AT THIS TIME EVEN THOUGH HE IS STILL VERY CONGESTED WITH LABORED BREATHING PATIENT HAS NO PERSONAL BELONGINGS REPORT WAS GIVEN TO CCU RN FOR CONTINUING CARE AT THIS TIME
--- NOTE | 2020-05-06 13:37 | NUR ---
Received patient from 3rd floor, patient placed on monitor, BP, temp and oxygen saturation WNL. HR initially reached 151 paced rhythm. During physical evaluation patient noted to have brown/black liquid draining from PEG site, and bleeding excoriated perianal area. Patient has a petit catheter that is leaking and yellow stool. Air mattress inflated, scd's on, padded side rails and suction equipment at bedside. Patient is on NRB mask.
[2020-05-06] MEDS ORDERED: MEROPENEM 0.5 G in IV NORMAL SALINE 50 ML IV SCH (14:00)
[2020-05-06] MEDS: MAGNESIUM SULFATE/D5W 100 ML IV SCH ×2 (14:55→16:17)
--- NOTE | 2020-05-06 15:19 | NUR ---
Contacted Dr. Alvarez to notify him that the PEG tube that he placed was leaking brown/black liquid. He stated that he is not public relations intern for GI and should call Dr. Alcantar and to temporarily place the Gtube to gravity. Will contact Dr. Alcantar.
--- NOTE | 2020-05-06 15:30 | NUR ---
Contacted Dr. Alcantar, notified him that Dr. Alvarez asked to follow up. KUB ordered, and full report on patient given. Pictures requested and sent of PEG site and liquid drainage.
--- NOTE | 2020-05-06 17:23 | NUR ---
Contacted Dr. Davila about the drainage that came out of Gtube, asked if fluids were indicated. Reported that BP was stable at this time and that no urine out put since 130pm. No new orders at this time.
--- NOTE | 2020-05-06 17:41 | NUR ---
Drainage bag connected to low suction after 600cc brown drainage from gravity removed.
[2020-05-06 17:46] LABS: HEMATOCRIT 30.4 % (36.7-47.1); HEMOGLOBIN 9.6 g/dL (12.5-16.3)
[2020-05-06] MEDS: MEROPENEM 500 MG in IV NORMAL SALINE 50 ML IV SCH (18:58)
--- NOTE | 2020-05-06 19:15 | NUR ---
RECEIVED PATIENT LETHARGIC , ON BIPAP 15/05 RATE 20 FI02 100% , GT ON LOW CONTINUOUS SUCTION , WITH BROWN DRAINAGE , PICC LINE AND LID LINE LEFT UPPER ARM INTACT SCANLON INTACT
--- NOTE | 2020-05-06 19:24 | NUR ---
Patient taken to ct scan without complication. Patient is on BIpap currently , paced rhythm 111, hemodynamically stable, afebrile. Stevens draining cloudy yellow urine, air mattress inflated, gtube to suction. Bed in low position, side rails up x2. Air mattress inflated.
--- NOTE | 2020-05-06 19:30 | NUR ---
MANUEL GONZALES RN , SENT THE RESULTS OF CAT SCAN AND KUB TO TO DR ADAME , ORDERED PEGOGRAM BY INTERVENTIONAL RADIOLOGIST , SPOKE TO FILM FLAT INSPECTOR , MADE AWARE OF ORDERED , IN AM , WILL FOLLOW UP
[2020-05-06] MEDS: MELATONIN 3 MG TABLET PEG SCH (21:00)
[2020-05-06] MEDS: ATORVASTATIN 40 MG TABLET PEG SCH (21:00)
--- NOTE | 2020-05-06 21:00 | NUR ---
IVAN , CONSERVATOR , WAS CALLED AND LEFT AN MESSAGE , WAITING FOR CALL BACK
[2020-05-06 21:39] LABS: HEMATOCRIT 30.4 % (36.7-47.1); HEMOGLOBIN 9.7 g/dL (12.5-16.3)
--- NOTE | 2020-05-06 22:00 | NUR ---
AROUSABLE WITH DEEP PAIN , NO SEIZURE NOTED , NO SIGNS OF DISTRESS, NO FEVER
[2020-05-07] VITALS (25 sets, daily range): BP systolic 83–122; BP diastolic 42–63
--- NOTE | 2020-05-07 | NUR ---
NO SEIZURE NOTED , NO FEVER
--- NOTE | 2020-05-07 00:33 | NUR ---
WILL TOLERATE CURRENT OXYGEN OF BIPAP 15/05 100 % FIO2M BREATH SOUNDS AND LOC AND ABG BEING MONITORED Addendum: 05/07/20 at 0033 by HORACE HOWARD RN Amended: Jared added. Addendum: 05/07/20 at 0034 gary HOWARD RN Amended: Links added. Addendum: 05/07/20 at 0035 gary HOWARD RN Amended: Links added. Addendum: 05/07/20 at 0036 by HORACE HOWARD RN Amended: Links added. Addendum: 05/07/20 at 0038 gary HOWARD RN Amended: Links added.
--- NOTE | 2020-05-07 00:34 | NUR ---
GT RESIDUAL BEING MONITORED CURRENTLY ON LOW CONTINUOUS SUCTION AND RESIDUAL BEING MONITORED Addendum: 05/07/20 at 0034 by HORACE HOWARD RN Amended: Jared added. Addendum: 05/07/20 at 0035 by HORACE HOWARD RN Amended: Jared added. Addendum: 05/07/20 at 0036 by HORACE HOWARD RN Amended: Links added. Addendum: 05/07/20 at 0038 by HORACE HOWARD RN Amended: Links added.
--- NOTE | 2020-05-07 00:35 | NUR ---
BLOOD PRESSURE SUSTAINING > 90 WITH NO PRESSORS Addendum: 05/07/20 at 0035 by HORACE HOWARD RN Amended: Jared jacobsen. Addendum: 05/07/20 at 0036 gary HOWARD RN Amended: Jared jacobsen. Addendum: 05/07/20 at 0038 gary HOWARD RN Amended: Links added.
--- NOTE | 2020-05-07 00:36 | NUR ---
MAGNESIUM LEVEL WAS CORRECETED TODAY AND POTASSIUM LEVEL BEING MONITORED Addendum: 05/07/20 at 0036 by HORACE HOWARD RN Amended: Jared added. Addendum: 05/07/20 at 0038 by HORACE HOWARD RN Amended: Jared jacobsen.
--- NOTE | 2020-05-07 00:37 | NUR ---
WILL NOT HAVE FURTHER SKIN BREAKDOWN , LOTRIMIN AND Z GUARD BEING APPLIED TO AFFECTED AREA Addendum: 05/07/20 at 0038 by HORACE HOWARD RN Amended: Links added.
--- NOTE | 2020-05-07 00:39 | NUR ---
CURRENTLY VANCOMYCIN AND MEREPENEM Addendum: 05/07/20 at 0039 by HORACE HOWARD RN Amended: Links added.
[2020-05-07 02:25] LABS: HEMATOCRIT 30.8 % (36.7-47.1); HEMOGLOBIN 9.8 g/dL (12.5-16.3)
[2020-05-07] MEDS: ALBUTEROL SULFATE 2.5 MG/3 ML NEBU NEB SCH ×6 (03:07→23:30)
[2020-05-07] MEDS: IPRATROPIUM BROMIDE 0.5 MG/2.5 ML NEBU NEB SCH ×6 (03:07→23:30)
[2020-05-07] MEDS: GUAIFENESIN SUGAR FREE 100 MG/5 ML UDC PEG SCH ×5 (03:22→20:25)
[2020-05-07] MEDS: ACETAMINOPHEN 650 MG SUPP.RECT RC PRN (04:12)
[2020-05-07] MEDS: MEROPENEM 500 MG in IV NORMAL SALINE 50 ML IV SCH ×2 (05:53→18:32)
[2020-05-07 07:19] LABS: BASOPHILS % (AUTO) 0.1 % (0.0-2.0); HEMATOCRIT 29.6 % (36.7-47.1); HEMOGLOBIN 9.4 g/dL (12.5-16.3); LYMPHOCYTES # (AUTO) 0.7 K/uL (20.0-40.0); LYMPHOCYTES % (AUTO) 2.3 % (20.5-51.5); MEAN CORPUSCULAR HEMOGLOBIN 30.2 uug (23.8-33.4); MEAN CORPUSCULAR HGB CONC 32 g/dL (32.5-36.3); MEAN CORPUSCULAR VOLUME 95.5 fL (73.0-96.2); MONOCYTES # (AUTO) 1.2 K/uL (2.0-10.0); NEUTROPHILS # (AUTO) 27.6 K/uL (1.8-8.9); NEUTROPHILS % (AUTO) 93.6 % (38.5-71.5); WHITE BLOOD COUNT (AUTO) 29.5 K/uL (3.6-10.2)
[2020-05-07 07:26] LABS: CARBON DIOXIDE 29 mmol/L (21-32); CHLORIDE 106 mmol/L (98-107); CREATININE 1.9 mg/dL (0.6-1.3); GLUCOSE 80 mg/dL (74-106); MAGNESIUM 2.6 mg/dL (1.8-2.4); PHOSPHOROUS 5.4 mg/dL (2.5-4.9); POTASSIUM 4.6 mmol/L (3.5-5.1); UREA NITROGEN, BLOOD 47 mg/dL (7-18); VANCOMYCIN,RANDOM 14.7 ug/mL (18.0-26.0)
[2020-05-07] MEDS: ACETYLCYSTEINE 20% 800 MG/4 ML VIAL NEB SCH ×3 (07:35→23:30)
[2020-05-07 07:37] LABS: PLATELET COUNT (AUTO) 185 K/uL (152-348)
[2020-05-07 07:54] LABS: ABG HCO3 25.1 mmol/L; ABG PCO2 48.6 mmHg (35.0-45.0); ABG PH 7.331 (7.350-7.450); ABG PO2 176.2 mmHg (75.0-100.0); ABG SITE RIGHT RADIAL; ABG TOTAL HEMOGLOBIN 9.1 G/dL (13.5-18.0); COHb 0.7 % (0.5-1.5); MetHb 0.5 % (0.0-1.5); O2Hb 98.5 % (94.0-97.0); VENT MODE BIPAP 16/6
[2020-05-07] MEDS: ASCORBIC ACID 500 MG TABLET PEG SCH ×2 (08:15→20:27)
[2020-05-07] MEDS: THIAMINE HCL 100 MG TABLET PEG SCH ×2 (08:15→20:27)
[2020-05-07] MEDS: CHOLECALCIFEROL 1,000 UNIT TABLET PEG SCH (08:15)
[2020-05-07] MEDS: ALLOPURINOL 100 MG TABLET PEG SCH (08:16)
[2020-05-07] MEDS: ZINC SULFATE 220 MG CAPSULE PEG SCH (08:16)
[2020-05-07] MEDS: CLOTRIMAZOLE 1% CREAM 30 GM TUBE TOP SCH ×2 (08:17→20:30)
[2020-05-07] MEDS: Z GUARD REMEDY PASTE 57 GM TUBE TOP SCH ×2 (08:24→20:30)
[2020-05-07] MEDS: PANTOPRAZOLE SODIUM 40 MG VIAL IV SCH ×2 (08:24→20:27)
[2020-05-07] MEDS: levETIRAcetam IV 1,000 MG in IV DEXTROSE 5% 100 ML IV SCH ×2 (08:25→20:27)
--- NOTE | 2020-05-07 09:15 | NUR ---
A call to fire prevention bureau captain Dr. Bedoya to report sbp in the low 80's with heart in the low 100's awaiting call back.
[2020-05-07 09:33] LABS: BAND % (MANUAL) 19 % (0-10); LYMPHOCYTES % (MANUAL) 3 % (20-40); MONOCYTES % (MANUAL) 6 % (2-10); NEUTROPHILS % (MANUAL) 72 % (42-75)
--- NOTE | 2020-05-07 09:38 | NUR ---
Pulmonary services, Dr. Garza in the unit to see and examine patient, full report given see order hx.
[2020-05-07] MEDS ORDERED: NOREPINEPHRINE BITARTRATE 32 MG in IV NORMAL SALINE 218 ML IV PRN ×4 (09:45)
[2020-05-07] MEDS: NOREPINEPHRINE BITARTRATE 8 MG in IV NORMAL SALINE 242 ML IV PRN (10:06)
--- NOTE | 2020-05-07 10:45 | NUR ---
FIO2% down to 70% pt. tolerating well
[2020-05-07] MEDS ORDERED: VANCOMYCIN IV 1,000 MG in IV DEXTROSE 5% 250 ML IV ONE (11:00)
[2020-05-07 11:03] LABS: HEMATOCRIT 27.7 % (36.7-47.1); HEMOGLOBIN 8.7 g/dL (12.5-16.3)
--- NOTE | 2020-05-07 13:00 | NUR ---
Clinical Pharmacy Note: Vancomycin Pharmacy to Dose Subjective: To continue vancomycin in this 74y/o male for indication of pneumonia. Objective: weight 57kg height 148cm BUN/SCr 47/1.9 (1.1 baseline) wbc 29.5 temp 98.6 Vanco random with am labs today: 14.7 Assessment/Plan As renal function has decreased, will continue dosing per level. Per today's random, dosed another 1gm vanco at 1100. As Scr continues to increase, will check tomorrow's labs and decide when to order next random accordingly. Will follow
--- NOTE | 2020-05-07 14:15 | NUR ---
GI physician Dr. Alcantar in the unit to see and examine patient, orders to resume feeding and maintain it at fix rate for the next 24 hours with residuals check Q4 PP., and release pressure at insertion site by applying drain gauze between skin and device. Orders to start reglan as well see order hx.
[2020-05-07] MEDS ORDERED: GLUCERNA 1.2 1000ML LIQUID GT PRN (14:45)
[2020-05-07] MEDS: METOCLOPRAMIDE HCL 10 MG/2 ML VIAL IV SCH ×2 (16:04→20:27)
--- NOTE | 2020-05-07 17:20 | NUR ---
PT REC'D ON BIPAP AND CONT WITH NONINVASIVE SUPPORT, PT TOLERATING SETTINGS WELL. MASK REMOVED FOR NT SXN'ING MOD/LRG THICK PALE YELLOW SECRETIONS NOTED. NEB TX'S ON HOLD UNTIL COVID RESULTS. SKIN ASSESSMENT DONE, LIGHT REDNESS NOTED TO NOSE AND CHEEK MEPILEX IN PLACE TO MAINTAIN SKIN INTEGRITY. CONT THERAPY ORDERED. MONITOR AND REPORT ANY CHANGES.
[2020-05-07] MEDS: ATORVASTATIN 40 MG TABLET PEG SCH (20:27)
[2020-05-07] MEDS: MELATONIN 3 MG TABLET PEG SCH (20:28)
[2020-05-08] VITALS (23 sets, daily range): BP systolic 91–114; BP diastolic 43–67
--- NOTE | 2020-05-08 | NUR ---
GT residual 120. Will hold feeding for now as he is not tolerating the feeding well.
[2020-05-08] MEDS: GUAIFENESIN SUGAR FREE 100 MG/5 ML UDC PEG SCH ×7 (00:24→23:35)
--- NOTE | 2020-05-08 01:09 | NUR ---
RECEIVED PATIENT ON BiPAP WITH THE FOLLOWING SETTINGS THAT ARE ON THE MECHANICAL VENTILATOR NOTES. PATIENT IS TOLERATING CURRENT SETTINGS WITH NO SOB NOTED. SUCTIONED MODERATE AMOUNT OF THICK YELLOW SECRETIONS. AMBU BAG IS BY BEDSIDE. ORAL CARE DONE. HHN TREATMENTS ARE ON HOLD UNTIL COVID RESULTS COME IN. MEPILEX IS IN PLACE TO PROTECT SKIN. ALARMS CHECKED AND THEY ARE ON AND AUDIBLE. WILL CONTINUE TO MONITOR PATIENT.
[2020-05-08] MEDS: IPRATROPIUM BROMIDE 0.5 MG/2.5 ML NEBU NEB SCH ×6 (03:26→22:44)
[2020-05-08] MEDS: ALBUTEROL SULFATE 2.5 MG/3 ML NEBU NEB SCH ×6 (03:27→22:51)
[2020-05-08 05:35] LABS: CARBON DIOXIDE 31 mmol/L (21-32); CHLORIDE 105 mmol/L (98-107); CREATININE 1.9 mg/dL (0.6-1.3); GLUCOSE 100 mg/dL (74-106); MAGNESIUM 2.5 mg/dL (1.8-2.4); POTASSIUM 3.6 mmol/L (3.5-5.1); UREA NITROGEN, BLOOD 52 mg/dL (7-18)
[2020-05-08 05:39] LABS: BASOPHILS # (AUTO) 0.1 K/uL (0.0-8.0); BASOPHILS % (AUTO) 0.4 % (0.0-2.0); EOSINOPHILS % (AUTO) 0.1 % (0.0-7.0); HEMOGLOBIN 9.3 g/dL (12.5-16.3); LYMPHOCYTES # (AUTO) 1.3 K/uL (20.0-40.0); LYMPHOCYTES % (AUTO) 4.5 % (20.5-51.5); MEAN CORPUSCULAR HEMOGLOBIN 30.3 uug (23.8-33.4); MEAN CORPUSCULAR HGB CONC 32 g/dL (32.5-36.3); MEAN CORPUSCULAR VOLUME 94.3 fL (73.0-96.2); MONOCYTES # (AUTO) 1.3 K/uL (2.0-10.0); MONOCYTES % (AUTO) 4.4 % (0.0-11.0); NEUTROPHILS # (AUTO) 26.2 K/uL (1.8-8.9); NEUTROPHILS % (AUTO) 90.6 % (38.5-71.5); PLATELET COUNT (AUTO) 202 K/uL (152-348); RED BLOOD CELL COUNT(AUTO) 3.08 MIL/uL (4.06-5.63)
[2020-05-08] MEDS: MEROPENEM 500 MG in IV NORMAL SALINE 50 ML IV SCH ×2 (06:22→17:39)
--- NOTE | 2020-05-08 07:30 | NUR ---
RECIEVED PT LYING IN BED, SOUND ASLEEP, HOB AT 35 DEGREES. OPENS EYES TO CALL BUT NON VERBAL. PT IS ON BIPAP MACHINE 16/6, R-20, FIO2-50%. SATURATION BETWEEN 96-100% RESPIRATION IS REGULAR, UNLABORED. HR IS PACING 100% WITH UNDERLYING SINUS RHYTHM. AFEBRILE. ABDOMEN IS SLIGHTLY DISTENDED BUT SOFT TO TOUCH. GTUBE IS IN PLACE AND PATENT. TUBE FEEDING IS INFUSING WELL AT 20ML/HR. NO RESIDUALS NOTED AT THIS TIME.
[2020-05-08] MEDS: ACETYLCYSTEINE 20% 800 MG/4 ML VIAL NEB SCH ×3 (07:35→22:45)
[2020-05-08 07:45] LABS: ABG BASE EXCESS 3.9 mmol/L; ABG HCO3 28.7 mmol/L; ABG PCO2 44.2 mmHg (35.0-45.0); ABG PO2 73.1 mmHg (75.0-100.0); ABG SITE RIGHT RADIAL; ABG TOTAL HEMOGLOBIN 9.6 G/dL (13.5-18.0); COHb 0.8 % (0.5-1.5); MetHb 0.5 % (0.0-1.5); O2Hb 93.2 % (94.0-97.0); VENT MODE BIPAP 16/6
[2020-05-08 08:34] LABS: BAND % (MANUAL) 10 % (0-10); LYMPHOCYTES % (MANUAL) 4 % (20-40); MONOCYTES % (MANUAL) 4 % (2-10); NEUTROPHILS % (MANUAL) 82 % (42-75)
[2020-05-08] MEDS: METOCLOPRAMIDE HCL 10 MG/2 ML VIAL IV SCH ×4 (08:49→20:29)
[2020-05-08] MEDS: ZINC SULFATE 220 MG CAPSULE PEG SCH (08:57)
[2020-05-08] MEDS: PANTOPRAZOLE SODIUM 40 MG VIAL IV SCH ×2 (08:57→20:29)
[2020-05-08] MEDS: ASCORBIC ACID 500 MG TABLET PEG SCH ×2 (08:57→20:32)
[2020-05-08] MEDS: THIAMINE HCL 100 MG TABLET PEG SCH ×2 (08:58→20:32)
[2020-05-08] MEDS: CHOLECALCIFEROL 1,000 UNIT TABLET PEG SCH (08:58)
[2020-05-08] MEDS: levETIRAcetam IV 1,000 MG in IV DEXTROSE 5% 100 ML IV SCH ×2 (08:58→20:30)
[2020-05-08] MEDS: ALLOPURINOL 100 MG TABLET PEG SCH (08:58)
[2020-05-08] MEDS: CLOTRIMAZOLE 1% CREAM 30 GM TUBE TOP SCH ×2 (09:00→20:30)
[2020-05-08] MEDS: Z GUARD REMEDY PASTE 57 GM TUBE TOP SCH ×2 (09:01→20:30)
--- NOTE | 2020-05-08 09:30 | NUR ---
SEEN AND EXAMINED BY DR CONSTANTINO WITH NEW ORDERS.
--- NOTE | 2020-05-08 11:22 | NUR ---
Clinical Pharmacy Note: Vancomycin Pharmacy to Dose Subjective: To continue vancomycin in this 74y/o male for indication of pneumonia. Objective: weight 57kg height 148cm BUN/SCr 47/1.9 (1.1 baseline) wbc 29 temp 98.5 Vanco random with am labs 6/8: 14.7 Vanco random with am labs 6/8: 27.9 Assessment/Plan As renal function has decreased, will continue dosing per level. Per today's random, no dose shall be due today. Will check tomorrow's labs and decide when to order next random accordingly. Will follow
--- NOTE | 2020-05-08 11:35 | NUR ---
TRIAL OFF BiPAP AT THIS TIME. PT PLACED TO 5L NC. WITH CONT TO MONITOR AND ASSESS NEEDED FOR BiPAP.
--- NOTE | 2020-05-08 13:00 | NUR ---
PT TOLERATED O2 NASAL CANNULA TRIAL AT 5L, SATURATING 98-100%. NO APPARENT RESPIRATORY DISTRESS NOTED. HR STILL TACHYCARDIC IN THE 110B/MIN. PT IS SLEEPING GOOD.
--- NOTE | 2020-05-08 17:30 | NUR ---
PM CARE RENDERED.
[2020-05-08] MEDS: IV NORMAL SALINE 250 ML IV PRN (18:43)
--- NOTE | 2020-05-08 19:15 | NUR ---
received patient awake , with spontaneous eye opening unable to follow, command , gt feeding glucerna 1.2 20 ml m no residual , no fever , no seizure noted ,
--- NOTE | 2020-05-08 20:00 | NUR ---
CARMEN , ID WAS HERE TO SEE PATIENT , UPDATES GIVEN
[2020-05-08] MEDS: ATORVASTATIN 40 MG TABLET PEG SCH (20:29)
[2020-05-08] MEDS: MELATONIN 3 MG TABLET PEG SCH (20:29)
--- NOTE | 2020-05-08 23:02 | NUR ---
lab works being monitored and patient is on antibiotics Addendum: 05/08/20 at 2302 by HORACE HOWARD RN Amended: Links added.
--- NOTE | 2020-05-08 23:05 | NUR ---
keeping the area dry and clean , z guard applied , no new wound forming during hospitalization Addendum: 05/08/20 at 2305 by HORACE HOWARD RN Amended: Jared added. Addendum: 05/08/20 at 2306 by HORACE HOWARD RN Amended: Links added. Addendum: 05/08/20 at 2308 by HORACE HOWARD RN Amended: Links added.
--- NOTE | 2020-05-08 23:07 | NUR ---
loc being monitored and curently tolerating nasal cannula 5 liters Addendum: 05/08/20 at 2307 by HORACE HOWARD RN Amended: Links added. Addendum: 05/08/20 at 2308 by HORACE HOWARD RN Amended: Links added.
--- NOTE | 2020-05-08 23:08 | NUR ---
temperature being monitored Addendum: 05/08/20 at 2308 by HORACE HOWARD RN Amended: Links added.
[2020-05-09] VITALS (23 sets, daily range): BP systolic 85–126; BP diastolic 44–87
--- NOTE | 2020-05-09 | NUR ---
SLEEPING COMFORTABLY , NO SEIZURE NOTED , ON 100 % NRB , NO FEVER
[2020-05-09] MEDS: ALBUTEROL SULFATE 2.5 MG/3 ML NEBU NEB SCH ×6 (02:52→22:30)
[2020-05-09] MEDS: IPRATROPIUM BROMIDE 0.5 MG/2.5 ML NEBU NEB SCH ×6 (02:52→22:30)
[2020-05-09] MEDS: GUAIFENESIN SUGAR FREE 100 MG/5 ML UDC PEG SCH ×6 (03:34→23:13)
--- NOTE | 2020-05-09 04:00 | NUR ---
NO SEIZURE NOTED , NC 6 L OXYGEN SATURATION 100 % , AROUSABLE TO TOUCH , NO SIGNS OF DISTRESS
[2020-05-09 05:10] LABS: BASOPHILS # (AUTO) 0.1 K/uL (0.0-8.0); BASOPHILS % (AUTO) 0.6 % (0.0-2.0); EOSINOPHILS % (AUTO) 0.2 % (0.0-7.0); HEMATOCRIT 25.6 % (36.7-47.1); HEMOGLOBIN 8.2 g/dL (12.5-16.3); LYMPHOCYTES # (AUTO) 0.8 K/uL (20.0-40.0); LYMPHOCYTES % (AUTO) 3.5 % (20.5-51.5); MEAN CORPUSCULAR HEMOGLOBIN 30.1 uug (23.8-33.4); MEAN CORPUSCULAR HGB CONC 32 g/dL (32.5-36.3); MEAN CORPUSCULAR VOLUME 93.9 fL (73.0-96.2); MONOCYTES # (AUTO) 1.4 K/uL (2.0-10.0); MONOCYTES % (AUTO) 5.7 % (0.0-11.0); NEUTROPHILS # (AUTO) 21.7 K/uL (1.8-8.9); PLATELET COUNT (AUTO) 111 K/uL (152-348); RED BLOOD CELL COUNT(AUTO) 2.73 MIL/uL (4.06-5.63); WHITE BLOOD COUNT (AUTO) 24.1 K/uL (3.6-10.2)
[2020-05-09] MEDS: MEROPENEM 500 MG in IV NORMAL SALINE 50 ML IV SCH ×2 (05:33→18:00)
[2020-05-09 05:48] LABS: CARBON DIOXIDE 29 mmol/L (21-32); CHLORIDE 104 mmol/L (98-107); GLUCOSE 113 mg/dL (74-106); MAGNESIUM 2.5 mg/dL (1.8-2.4); PHOSPHOROUS 4.6 mg/dL (2.5-4.9); POTASSIUM 3.7 mmol/L (3.5-5.1)
[2020-05-09 05:54] LABS: UREA NITROGEN, BLOOD 56 mg/dL (7-18)
--- NOTE | 2020-05-09 06:00 | NUR ---
SLEEPING COMFORTABLY , NO SEIZURE NOTED ON 6L NC WITH HUMIDIFIER, GT CLAMPED PER FEEDING ORDER X 20 HOURS
--- NOTE | 2020-05-09 07:15 | NUR ---
Received report from mechanical shop laborer nurse, patient in bed awake, no distress noted at this time. V paced on the monitor tachycardic, BP 88/40, oxygen 100% on 6L NC, petit draining clear yellow urine, scd's on, air mattress inflated and antibiotics infusing. Bed in low position, side rails upx2, bed alarm on. All alarms checked.
[2020-05-09] MEDS: ACETYLCYSTEINE 20% 800 MG/4 ML VIAL NEB SCH ×3 (07:38→22:30)
[2020-05-09 08:10] LABS: ABG BASE EXCESS 5.6 mmol/L; ABG HCO3 30.3 mmol/L; ABG PCO2 45.7 mmHg (35.0-45.0); ABG PO2 147.2 mmHg (75.0-100.0); ABG SITE LEFT RADIAL; MetHb 0.6 % (0.0-1.5); O2Hb 97.6 % (94.0-97.0); VENT MODE Nasal Cannula
[2020-05-09] MEDS: METOCLOPRAMIDE HCL 10 MG/2 ML VIAL IV SCH ×4 (08:15→20:46)
[2020-05-09] MEDS: levETIRAcetam IV 1,000 MG in IV DEXTROSE 5% 100 ML IV SCH ×2 (08:17→20:52)
[2020-05-09] MEDS: ASCORBIC ACID 500 MG TABLET PEG SCH ×2 (08:18→20:50)
[2020-05-09] MEDS: PANTOPRAZOLE SODIUM 40 MG VIAL IV SCH ×2 (08:18→20:46)
[2020-05-09] MEDS: ALLOPURINOL 100 MG TABLET PEG SCH (08:19)
[2020-05-09] MEDS: ZINC SULFATE 220 MG CAPSULE PEG SCH (08:19)
[2020-05-09] MEDS: THIAMINE HCL 100 MG TABLET PEG SCH ×2 (08:19→20:55)
[2020-05-09] MEDS: Z GUARD REMEDY PASTE 57 GM TUBE TOP SCH ×2 (08:19→20:50)
[2020-05-09] MEDS: CLOTRIMAZOLE 1% CREAM 30 GM TUBE TOP SCH ×2 (08:20→20:51)
[2020-05-09] MEDS: CHOLECALCIFEROL 1,000 UNIT TABLET PEG SCH (08:35)
--- NOTE | 2020-05-09 09:51 | NUR ---
Full report given to Dr. Diaz in the unit.
[2020-05-09] MEDS: GLUCERNA 1.2 1000ML LIQUID GT PRN (10:06)
[2020-05-09] MEDS: IV D5/ 0.9% NACL 1,000 ML IV PRN ×2 (10:07→23:13)
--- NOTE | 2020-05-09 11:40 | NUR ---
Patient seen by Dr. Bedoya.
--- NOTE | 2020-05-09 18:51 | NUR ---
Kiara in the unit to see the patient. Full report given.
--- NOTE | 2020-05-09 18:51 | NUR ---
Patient has been cooperative with care. Patient currently in bed on air mattress, petit draining 200cc this shift, Oxygen 5L nasal cannula, Sinus tach (paced on the monitor). Patient tolerating 20cc/hr glucerna tube feeding. IVF d5ns running at 75cc/hr. patient frequently repositioned on left and supine positioning. Scd's on, no distress at this time, bed in low position, side rails upx2.
--- NOTE | 2020-05-09 20:00 | NUR ---
CHECKED TUBE FEEDS ZERO RESIDUAL . INCREASE TF TO 30 ML/HR . HOB UP ASPIRATION PRECAUTION OBSERVED AND FLUSHED PEG WITH WATER .
[2020-05-09] MEDS: ATORVASTATIN 40 MG TABLET PEG SCH (20:46)
[2020-05-09] MEDS: MELATONIN 3 MG TABLET PEG SCH (20:53)
--- NOTE | 2020-05-09 21:30 | NUR ---
CALLED RESPIRATORY THERAPIST PATIENT DE SATURATED ,SATURATION 88% ON 4 L/MIN . INCREASE TO 6L/MIN HUMIDIFIED AND RESPIRATORY THERAPIST SUCTION PATIENT VIA NASO AND VIA MOUTH THICK BROWNISH YELLOWISH SECRETION .ORAL CARE DONE AND HOB UP .
--- NOTE | 2020-05-09 22:30 | NUR ---
TURNED AND REPOSITION PATIENT ,OFFLOADED BACK WITH PILLOWS AND HEELS OFF BED .SCDS USED AND PATIENT ON AIRLOSS MATTRESS .
[2020-05-10] VITALS (24 sets, daily range): BP systolic 104–136; BP diastolic 49–73
--- NOTE | 2020-05-10 | NUR ---
AFEBRILE 98.0 F VIA AXILLARY . DUE ANTIBIOTICS GIVEN SEE EMAR .
[2020-05-10] MEDS: IPRATROPIUM BROMIDE 0.5 MG/2.5 ML NEBU NEB SCH ×6 (03:43→22:31)
[2020-05-10] MEDS: ALBUTEROL SULFATE 2.5 MG/3 ML NEBU NEB SCH ×6 (03:43→22:31)
[2020-05-10] MEDS: GUAIFENESIN SUGAR FREE 100 MG/5 ML UDC PEG SCH ×5 (04:49→20:19)
[2020-05-10] MEDS: MEROPENEM 500 MG in IV NORMAL SALINE 50 ML IV SCH ×2 (05:34→17:55)
[2020-05-10 05:35] LABS: EOSINOPHILS % (AUTO) 0.2 % (0.0-7.0)
[2020-05-10 05:43] LABS: BASOPHILS % (AUTO) 0.2 % (0.0-2.0); HEMATOCRIT 26.3 % (36.7-47.1); HEMOGLOBIN 8.4 g/dL (12.5-16.3); LYMPHOCYTES % (AUTO) 6.5 % (20.5-51.5); MEAN CORPUSCULAR HEMOGLOBIN 30.3 uug (23.8-33.4); MEAN CORPUSCULAR HGB CONC 32 g/dL (32.5-36.3); MEAN CORPUSCULAR VOLUME 94.8 fL (73.0-96.2); MONOCYTES # (AUTO) 1.3 K/uL (2.0-10.0); MONOCYTES % (AUTO) 8.7 % (0.0-11.0); NEUTROPHILS # (AUTO) 12.8 K/uL (1.8-8.9); NEUTROPHILS % (AUTO) 84.4 % (38.5-71.5); RED BLOOD CELL COUNT(AUTO) 2.77 MIL/uL (4.06-5.63); WHITE BLOOD COUNT (AUTO) 15.1 K/uL (3.6-10.2)
[2020-05-10 05:44] LABS: CARBON DIOXIDE 29 mmol/L (21-32); CHLORIDE 107 mmol/L (98-107); GLUCOSE 143 mg/dL (74-106); MAGNESIUM 2.2 mg/dL (1.8-2.4); PHOSPHOROUS 5.2 mg/dL (2.5-4.9); POTASSIUM 4.2 mmol/L (3.5-5.1); UREA NITROGEN, BLOOD 55 mg/dL (7-18)
[2020-05-10 05:46] LABS: PLATELET COUNT (AUTO) 162 K/uL (152-348)
[2020-05-10] MEDS: ACETYLCYSTEINE 20% 800 MG/4 ML VIAL NEB SCH ×3 (07:33→22:30)
[2020-05-10] MEDS: levETIRAcetam IV 1,000 MG in IV DEXTROSE 5% 100 ML IV SCH ×2 (08:12→20:20)
[2020-05-10] MEDS: PANTOPRAZOLE SODIUM 40 MG VIAL IV SCH ×2 (08:12→20:20)
[2020-05-10] MEDS: ASCORBIC ACID 500 MG TABLET PEG SCH ×2 (08:13→20:21)
[2020-05-10] MEDS: THIAMINE HCL 100 MG TABLET PEG SCH ×2 (08:13→20:23)
[2020-05-10] MEDS: CHOLECALCIFEROL 1,000 UNIT TABLET PEG SCH (08:13)
[2020-05-10] MEDS: ZINC SULFATE 220 MG CAPSULE PEG SCH (08:14)
[2020-05-10] MEDS: ALLOPURINOL 100 MG TABLET PEG SCH (08:14)
[2020-05-10] MEDS: METOCLOPRAMIDE HCL 10 MG/2 ML VIAL IV SCH ×4 (08:15→20:20)
[2020-05-10] MEDS: Z GUARD REMEDY PASTE 57 GM TUBE TOP SCH ×2 (08:16→20:21)
[2020-05-10] MEDS: CLOTRIMAZOLE 1% CREAM 30 GM TUBE TOP SCH ×2 (08:16→20:22)
--- NOTE | 2020-05-10 10:30 | NUR ---
Pulmonary services Dr. Garza in the unit, full report given to Dr. Garza. See order history for new orders. Dr. Garza at bedside assessing patient.
[2020-05-10] MEDS: IV D5/ 0.9% NACL 1,000 ML IV PRN (12:00)
--- NOTE | 2020-05-10 12:30 | NUR ---
Nephrology services Dr. Kirk in the unit, full report given to Dr. Diaz. see order history for new orders.
--- NOTE | 2020-05-10 16:20 | NUR ---
CARDIOLOGY SERVICES DR. VIEIRA IN THE UNIT, FULL REPORT GIVEN. SEE ORDER HISTORY FOR NEW ORDERS. DR. VIEIRA AT BEDSIDE ASSESSING PATIENT
--- NOTE | 2020-05-10 20:00 | NUR ---
ROUNDS MADE PATIENT IN BED OPEN EYES TO NAME NON VERBAL DOESN'T FOLLOW COMMANDS .TUBE FEEDINGS IN PROGRESS GLUCERNA 1.2 AT 60 ML/HR VIA THE PEG NO RESIDUAL NOTED,FLUSHED TUBE WITH WATER.PATENT .CONTINUE TO MONITOR TUBE FEEDINGS
[2020-05-10] MEDS: ATORVASTATIN 40 MG TABLET PEG SCH (20:20)
[2020-05-10] MEDS: MELATONIN 3 MG TABLET PEG SCH (20:21)
[2020-05-10] MEDS: IV NORMAL SALINE 250 ML IV PRN (20:29)
--- NOTE | 2020-05-10 21:30 | NUR ---
SUCTION BY RESPIRATORY THERAPIST AT B/S . TOLERATING 02 AT 6 L MIN . HOB UP ,SATIATING 92 TO 96 %.
--- NOTE | 2020-05-10 23:30 | NUR ---
PATIENT HAD A LARGE BM ,SOFT LARGE IN AMT . BROWNISH IN COLOR . CHANGED SOILED LINENS AND GOWN,APPLIED Z GUARD TO SACRAL AND BILATERAL GROIN AREA , MEPILEX TO SACRAL AREA . TURNED AND REPOSITIO PATIENT ,OFF LOADED HEELS .
[2020-05-11] VITALS (23 sets, daily range): BP systolic 122–145; BP diastolic 59–74
[2020-05-11] MEDS: GUAIFENESIN SUGAR FREE 100 MG/5 ML UDC PEG SCH ×7 (00:14→23:30)
[2020-05-11] MEDS: IV D5/ 0.9% NACL 1,000 ML IV PRN (00:14)
[2020-05-11] MEDS: IPRATROPIUM BROMIDE 0.5 MG/2.5 ML NEBU NEB SCH ×6 (02:30→22:30)
[2020-05-11] MEDS: ALBUTEROL SULFATE 2.5 MG/3 ML NEBU NEB SCH ×6 (02:30→22:30)
[2020-05-11 04:57] LABS: BASOPHILS % (AUTO) 0.1 % (0.0-2.0); EOSINOPHILS # (AUTO) 0.1 K/uL (0.0-0.7); EOSINOPHILS % (AUTO) 0.4 % (0.0-7.0); HEMATOCRIT 25.8 % (36.7-47.1); HEMOGLOBIN 8.2 g/dL (12.5-16.3); LYMPHOCYTES # (AUTO) 0.8 K/uL (20.0-40.0); LYMPHOCYTES % (AUTO) 4.5 % (20.5-51.5); MEAN CORPUSCULAR HGB CONC 32 g/dL (32.5-36.3); MEAN CORPUSCULAR VOLUME 94.1 fL (73.0-96.2); MONOCYTES # (AUTO) 1.1 K/uL (2.0-10.0); MONOCYTES % (AUTO) 6.2 % (0.0-11.0); NEUTROPHILS # (AUTO) 15.2 K/uL (1.8-8.9); NEUTROPHILS % (AUTO) 88.8 % (38.5-71.5); PLATELET COUNT (AUTO) 124 K/uL (152-348); RED BLOOD CELL COUNT(AUTO) 2.74 MIL/uL (4.06-5.63); WHITE BLOOD COUNT (AUTO) 17.1 K/uL (3.6-10.2)
[2020-05-11 05:10] LABS: CARBON DIOXIDE 26 mmol/L (21-32); CHLORIDE 103 mmol/L (98-107); CREATININE 1.8 mg/dL (0.6-1.3); GLUCOSE 132 mg/dL (74-106); MAGNESIUM 2.2 mg/dL (1.8-2.4); PHOSPHOROUS 5.1 mg/dL (2.5-4.9); POTASSIUM 4.9 mmol/L (3.5-5.1); UREA NITROGEN, BLOOD 54 mg/dL (7-18)
[2020-05-11] MEDS: MEROPENEM 500 MG in IV NORMAL SALINE 50 ML IV SCH ×2 (05:17→18:27)
[2020-05-11] MEDS: ACETYLCYSTEINE 20% 800 MG/4 ML VIAL NEB SCH ×3 (07:00→22:30)
[2020-05-11] MEDS: METOCLOPRAMIDE HCL 10 MG/2 ML VIAL IV SCH ×4 (08:06→20:50)
[2020-05-11] MEDS: PANTOPRAZOLE SODIUM 40 MG VIAL IV SCH ×2 (08:07→20:50)
[2020-05-11] MEDS: ALLOPURINOL 100 MG TABLET PEG SCH (08:10)
[2020-05-11] MEDS: THIAMINE HCL 100 MG TABLET PEG SCH ×2 (08:10→20:51)
[2020-05-11] MEDS: ASCORBIC ACID 500 MG TABLET PEG SCH ×2 (08:10→20:51)
[2020-05-11] MEDS: CHOLECALCIFEROL 1,000 UNIT TABLET PEG SCH (08:10)
[2020-05-11] MEDS: ZINC SULFATE 220 MG CAPSULE PEG SCH (08:12)
[2020-05-11] MEDS: CLOTRIMAZOLE 1% CREAM 30 GM TUBE TOP SCH ×2 (08:13→20:54)
[2020-05-11] MEDS: Z GUARD REMEDY PASTE 57 GM TUBE TOP SCH ×2 (08:13→20:52)
[2020-05-11 08:20] LABS: ABG BASE EXCESS -1.2 mmol/L; ABG HCO3 26.2 mmol/L; ABG PCO2 58.7 mmHg (35.0-45.0); ABG PH 7.267 (7.350-7.450); ABG PO2 154.3 mmHg (75.0-100.0); ABG SITE RIGHT RADIAL; ABG TOTAL HEMOGLOBIN 8.7 G/dL (13.5-18.0); COHb 1.2 % (0.5-1.5); MetHb 0.4 % (0.0-1.5); O2Hb 97.6 % (94.0-97.0); VENT MODE Nasal Cannula
[2020-05-11] MEDS: levETIRAcetam IV 1,000 MG in IV DEXTROSE 5% 100 ML IV SCH ×2 (08:27→20:50)
--- NOTE | 2020-05-11 11:00 | NUR ---
Cardiology services Dr. Bedoya in the unit, full report given to Dr. Bedoya. See order history for new orders. Dr. Bedoya at bedside assessing patient.
--- NOTE | 2020-05-11 11:05 | NUR ---
Nephrology services Dr. Diaz in the unit, full report given. See order history for new orders.
--- NOTE | 2020-05-11 20:00 | NUR ---
ROUNDS MADE PATIENT IN BED ,OPEN EYES ONLY DOESN'T FOLLOW NON VERBAL ,TOLERATING 02 4LITERS SATURATION 99 % RR 28. HOB UP . AFEBRILE .SEE EMAR .
[2020-05-11] MEDS: ATORVASTATIN 40 MG TABLET PEG SCH (20:51)
[2020-05-11] MEDS: MELATONIN 3 MG TABLET PEG SCH (20:52)
--- NOTE | 2020-05-11 21:30 | NUR ---
DUE MEDICATION SCAN AND GIVEN VIA PEG ,CRUSHED MEDICATION AND FLUSHED PEG . TOLERATING TF GLUCERNA 1.2 AT 65 ML/HR . CHECKED RESIDUAL 100 ML.
--- NOTE | 2020-05-11 22:15 | NUR ---
CALLED RESPIRATORY THERAPIST TO SUCTION PATIENT RR 30 AND SATURATION 90 TO 92 %.
--- NOTE | 2020-05-11 23:19 | NUR ---
CALLED [facility] AND SPOKED WITH KIRSTIE FINNEGAN AND INFORMED PATIENT WHEEZING BADLY . WITH ORDERS TO D/S MAINTENANCE IVF AND TO GIVE LASIX 80 IVP X1.
[2020-05-11] MEDS ORDERED: FUROSEMIDE 40 MG/4 ML VIAL IV ONE (23:30)
[2020-05-12] VITALS (24 sets, daily range): BP systolic 99–131; BP diastolic 50–68
--- NOTE | 2020-05-12 01:48 | NUR ---
CALLED RESPIRATORY THERAPIST PATIENT DESATURATED 69 % ON 5 L/MIN ,RESPIRATORY THERAPIST PLACED PATIENT ON NON REBREATHER MASK AT 15 LITER =100% ,saturation 100% rr 26.called KIRSTIE DE LA CRU[facility] .
[2020-05-12] MEDS: IV NORMAL SALINE 250 ML IV PRN (02:14)
[2020-05-12] MEDS: ALBUTEROL SULFATE 2.5 MG/3 ML NEBU NEB SCH ×6 (02:36→23:24)
[2020-05-12] MEDS: IPRATROPIUM BROMIDE 0.5 MG/2.5 ML NEBU NEB SCH ×6 (02:36→23:24)
--- NOTE | 2020-05-12 02:37 | NUR ---
CALLED [facility] AND SPOKED DOCTOR:LATONIA MADE AWARE PATIENT LOW SATURATION AND NOW ON NONREBREATHER MASK 100% ,15 LITER SATURATION WENT TO 100% RR 26, PATIENT PUPILS BILATERAL REACTIVE BUT PATIENT VERY LETHARGIC, PER KIRSTIE LINCOLN TO CONTINUE TO MONITOR AND TO DO ABG AND CHEST XRAY IN AM .
--- NOTE | 2020-05-12 03:30 | NUR ---
AM CARE DONE ,BATH PATIENT CHANGED SOILED LINENS AND GOWN ,F/C DONE AND ORAL CARE DONE .APPLIED CLOTRIMAZOLE CREAM TO PERIANAL AREA AND Z SCARLET TO SACRAL AND BILATERAL GROIN .PLACED MEPILEX TURNED AND REPOSITION PATIENT ELEVATED BILATERAL UPPER ARMS WITH PILLOWS . HOB UP .
[2020-05-12] MEDS: GUAIFENESIN SUGAR FREE 100 MG/5 ML UDC PEG SCH ×5 (04:48→20:45)
[2020-05-12] MEDS: MEROPENEM 500 MG in IV NORMAL SALINE 50 ML IV SCH ×2 (05:23→17:22)
--- NOTE | 2020-05-12 05:23 | NUR ---
XRAY BRANCH SERVICE SPECIALIST AT B/[facility] FOR PORTABLE CHEST XRAY .
[2020-05-12 06:50] LABS: CARBON DIOXIDE 28 mmol/L (21-32); CHLORIDE 108 mmol/L (98-107); CREATININE 1.7 mg/dL (0.6-1.3); GLUCOSE 138 mg/dL (74-106); POTASSIUM 5.7 mmol/L (3.5-5.1); UREA NITROGEN, BLOOD 50 mg/dL (7-18)
[2020-05-12 06:53] LABS: BASOPHILS # (AUTO) 0.1 K/uL (0.0-8.0); BASOPHILS % (AUTO) 0.2 % (0.0-2.0); EOSINOPHILS # (AUTO) 0.5 K/uL (0.0-0.7); EOSINOPHILS % (AUTO) 2.1 % (0.0-7.0); HEMATOCRIT 26.9 % (36.7-47.1); HEMOGLOBIN 8.4 g/dL (12.5-16.3); LYMPHOCYTES # (AUTO) 0.7 K/uL (20.0-40.0); LYMPHOCYTES % (AUTO) 2.9 % (20.5-51.5); MAGNESIUM 2.3 mg/dL (1.8-2.4); MEAN CORPUSCULAR HEMOGLOBIN 30.1 uug (23.8-33.4); MEAN CORPUSCULAR HGB CONC 31 g/dL (32.5-36.3); MEAN CORPUSCULAR VOLUME 96.5 fL (73.0-96.2); MONOCYTES # (AUTO) 0.2 K/uL (2.0-10.0); NEUTROPHILS # (AUTO) 22.4 K/uL (1.8-8.9); NEUTROPHILS % (AUTO) 93.8 % (38.5-71.5); PHOSPHOROUS 7.1 mg/dL (2.5-4.9); RED BLOOD CELL COUNT(AUTO) 2.79 MIL/uL (4.06-5.63)
[2020-05-12 06:57] LABS: WHITE BLOOD COUNT (AUTO) 23.9 K/uL (3.6-10.2)
[2020-05-12 06:58] LABS: PLATELET COUNT (AUTO) 210 K/uL (152-348)
--- NOTE | 2020-05-12 07:11 | NUR ---
RESPIRATORY THERAPIST GAVE PATIENT BREATHING TREATMENT AND DID ABG , WITH THE RESULTS RESPIRATORY THERAPIST PLACED PATIENT ON BIPAP . 15/05 RATE OF 20 FIO2 50%.
[2020-05-12 07:19] LABS: ABG BASE EXCESS -5.9 mmol/L; ABG HCO3 24.7 mmol/L; ABG PCO2 83.7 mmHg (35.0-45.0); ABG PH 7.087 (7.350-7.450); ABG PO2 283.3 mmHg (75.0-100.0); ABG SITE RIGHT RADIAL; ABG TOTAL HEMOGLOBIN 9.6 G/dL (13.5-18.0); COHb 1.1 % (0.5-1.5); MetHb 0.6 % (0.0-1.5)
--- NOTE | 2020-05-12 07:25 | NUR ---
Post ABG placed pt on BIPAP. Nurse aware. will cont to monitor pt. Pt power BIPAP at this time no SOB noted. Alarm on and audible.
--- NOTE | 2020-05-12 07:30 | NUR ---
RECIEVED PT LYING IN BED, INTUBATED, ETT 7.[address] CONNECTED TO THE VENTILATOR WITH A SETTING OF AC-18, VT-550, PEEP-5, FIO2 60%. SATURATION IS BETWEEN 95-100%. PT IS SEDATED WITH VERSED DRIP AT 7MG/HR VIA AZAEL IV ACCESS LINE. NO APPARENT DISTRESS NOTED. PT ON WRIST RESTRAINTS FOR MEDICAL SAFETY. HR 8IS OSR-ST NO ECTOPY. AFEBRILE.
--- NOTE | 2020-05-12 07:30 | NUR ---
RECIEVED PT LYING IN BED, HOB UP AT 30 DEGREES. LETHARGIC AND NON VERBAL, GENERALLY WEAK. HR IS ST WITH PACER BEATS. HAS GENERALIZED EDEMA NOTED. PT ON BIPAP WITH A SETTING OF 16/6, RATE-20, FIO2 50%, SATURATION IS IN THE 94-100%. TEM IS 94.7F. PLACED ON BEAR HUGGER. TUBE FEEDING IS OFF AT THIS TIME.
[2020-05-12 08:03] LABS: BAND % (MANUAL) 6 % (0-10); LYMPHOCYTES % (MANUAL) 3 % (20-40); MONOCYTES % (MANUAL) 2 % (2-10); NEUTROPHILS % (MANUAL) 89 % (42-75)
[2020-05-12] MEDS: ACETYLCYSTEINE 20% 800 MG/4 ML VIAL NEB SCH ×3 (08:24→23:24)
[2020-05-12] MEDS: METOCLOPRAMIDE HCL 10 MG/2 ML VIAL IV SCH ×4 (08:57→20:45)
[2020-05-12] MEDS: PANTOPRAZOLE SODIUM 40 MG VIAL IV SCH ×2 (08:58→20:45)
[2020-05-12] MEDS: ASCORBIC ACID 500 MG TABLET PEG SCH ×2 (08:58→20:45)
[2020-05-12] MEDS: CHOLECALCIFEROL 1,000 UNIT TABLET PEG SCH (08:58)
[2020-05-12] MEDS: ALLOPURINOL 100 MG TABLET PEG SCH (08:59)
[2020-05-12] MEDS: ZINC SULFATE 220 MG CAPSULE PEG SCH (08:59)
[2020-05-12] MEDS: THIAMINE HCL 100 MG TABLET PEG SCH ×2 (09:00→20:45)
[2020-05-12] MEDS ORDERED: BUMETANIDE INJ 3 MG in IV DEXTROSE 5% 48 ML IV ONE (09:00)
[2020-05-12] MEDS: Z GUARD REMEDY PASTE 57 GM TUBE TOP SCH ×2 (09:00→20:47)
[2020-05-12] MEDS: CLOTRIMAZOLE 1% CREAM 30 GM TUBE TOP SCH ×2 (09:01→20:47)
[2020-05-12] MEDS: levETIRAcetam IV 1,000 MG in IV DEXTROSE 5% 100 ML IV SCH ×2 (09:02→20:46)
--- NOTE | 2020-05-12 10:00 | NUR ---
REPOSITION TO SIDE. BUMEX IVPB GIVEN ORDERED.
--- NOTE | 2020-05-12 10:00 | NUR ---
PT IS RESTLESS AND AGITATED. MEDICATED WITH MORPHINE 2MG SLOW IVP. PT SLEPT INTERMITTENTLY. NGT ON LEFT NOSTRIL INTACT AND IN PLACE CONNECTED TO LOW INTERMITTENT SUCTION, NO DRAIN NOTED. NPO. TEMP-99F/AXILLARY.
--- NOTE | 2020-05-12 11:30 | NUR ---
SEEN AND EXAMINED BY DR LINCOLN WITH NEW ORDERS.
[2020-05-12 13:15] LABS: ABG BASE EXCESS -3.4 mmol/L; ABG HCO3 25.5 mmol/L; ABG PCO2 69.8 mmHg (35.0-45.0); ABG PO2 78.5 mmHg (75.0-100.0); ABG SITE RIGHT RADIAL; COHb 1.3 % (0.5-1.5); MetHb 0.4 % (0.0-1.5); O2Hb 92.8 % (94.0-97.0); VENT MODE VENT - BILEVEL
--- NOTE | 2020-05-12 13:30 | NUR ---
ABG DONE ON BIPAP ORDERED AND RESULT IS TRENDING ON THE RIGHT DIRECTION. CONTINUED WITH BIPAP SETTING.
--- NOTE | 2020-05-12 18:00 | NUR ---
TOTAL URINE OUTPUT IS 250 ML. LATEST TEMP IS 97.7F. SEEN AND EXAMINED BY CARMEN DARDEN.
--- NOTE | 2020-05-12 19:20 | NUR ---
Received patient in bed, sofía A/O x3. She is moving about independently in bed. Patient was recently extubated @1335 this afternoon and has noticeable hoarseness when she speaks. on 4L NC, however she frequently removed the NC and she maintains an o2 saturation between 95-98% on RA. She also has a productive cough with slightly bloody sputum. Patient's main complaints are of lower back pain. She also expresses a desire to go home. patient has a Stevens catheter that is draining slightly cloudy yellow urine. PICC line in the upper right arm. Peripheral line in the right wrist. Addendum: 05/13/20 at 0719 by KARIN BETTENCOURT RN Incorrect patient. Disregard above note.
--- NOTE | 2020-05-12 19:20 | NUR ---
Received patient in bed, responsive to pain stimuli. Patient is on BIPAP 16/6 rate of 20, FiO2 50%. Picc line [place] and midline Left AC. Stevens Catheter draining clear yellow urine. Patient on first step matress. PEG tube with glucerna 1.2 running @65mL/hr.
[2020-05-12] MEDS: ATORVASTATIN 40 MG TABLET PEG SCH (20:45)
--- NOTE | 2020-05-12 20:45 | NUR ---
PT received on BiPAP with settings 16/6 IPAP/EPAP, Rate of 20, FiO2 50%. Alarms on and audible. Suction PRN. Tx given as ordered. Tolerates current BiPAP settings well. Will continue to monitor.
[2020-05-12] MEDS: MELATONIN 3 MG TABLET PEG SCH (20:46)
[2020-05-13] VITALS (24 sets, daily range): BP systolic 111–140; BP diastolic 56–75
[2020-05-13] MEDS: GUAIFENESIN SUGAR FREE 100 MG/5 ML UDC PEG SCH ×6 (00:40→20:24)
[2020-05-13] MEDS: IPRATROPIUM BROMIDE 0.5 MG/2.5 ML NEBU NEB SCH ×6 (03:20→22:36)
[2020-05-13] MEDS: ALBUTEROL SULFATE 2.5 MG/3 ML NEBU NEB SCH ×6 (03:20→22:36)
[2020-05-13 06:14] LABS: BASOPHILS % (AUTO) 0.3 % (0.0-2.0); EOSINOPHILS % (AUTO) 0.1 % (0.0-7.0); HEMATOCRIT 25.3 % (36.7-47.1); HEMOGLOBIN 7.8 g/dL (12.5-16.3); LYMPHOCYTES # (AUTO) 0.9 K/uL (20.0-40.0); LYMPHOCYTES % (AUTO) 4.9 % (20.5-51.5); MEAN CORPUSCULAR HEMOGLOBIN 29.7 uug (23.8-33.4); MEAN CORPUSCULAR HGB CONC 31 g/dL (32.5-36.3); MONOCYTES # (AUTO) 0.7 K/uL (2.0-10.0); NEUTROPHILS # (AUTO) 16.3 K/uL (1.8-8.9); NEUTROPHILS % (AUTO) 90.7 % (38.5-71.5); PLATELET COUNT (AUTO) 175 K/uL (152-348); RED BLOOD CELL COUNT(AUTO) 2.63 MIL/uL (4.06-5.63)
[2020-05-13] MEDS: MEROPENEM 500 MG in IV NORMAL SALINE 50 ML IV SCH ×2 (06:20→18:18)
[2020-05-13 06:29] LABS: CARBON DIOXIDE 26 mmol/L (21-32); CHLORIDE 108 mmol/L (98-107); CREATININE 1.8 mg/dL (0.6-1.3); GLUCOSE 77 mg/dL (74-106); MAGNESIUM 2.2 mg/dL (1.8-2.4); PHOSPHOROUS 6.3 mg/dL (2.5-4.9); POTASSIUM 5.6 mmol/L (3.5-5.1)
[2020-05-13 06:55] LABS: UREA NITROGEN, BLOOD 56 mg/dL (7-18)
--- NOTE | 2020-05-13 07:25 | NUR ---
Pt received on BIPAP with ordered settings of 16/6, Rate-20, FIO2-50%. Pt tolerating BIPAP settings well. Nebulizer treatments given as orderd. Treatments tolerated well, with no adverse reactions. Pt suctioned as needed for moderate amount of yellowish and bloody thick secretions. Replaced mepilex to protect Pt's face. Pt has small bruise on bridge of nose. M[place] notified. Will continue to monitor.
[2020-05-13] MEDS: METOCLOPRAMIDE HCL 10 MG/2 ML VIAL IV SCH ×4 (07:32→20:24)
[2020-05-13] MEDS: GLUCERNA 1.2 1000ML LIQUID GT PRN (07:33)
[2020-05-13] MEDS: ACETYLCYSTEINE 20% 800 MG/4 ML VIAL NEB SCH ×3 (07:36→22:36)
[2020-05-13 07:59] LABS: ABG BASE EXCESS -3.5 mmol/L; ABG HCO3 22.4 mmol/L; ABG PH 7.324 (7.350-7.450); ABG SITE RIGHT RADIAL; ABG TOTAL HEMOGLOBIN 8.6 G/dL (13.5-18.0); COHb 1.2 % (0.5-1.5); MetHb 0.7 % (0.0-1.5); O2Hb 94.3 % (94.0-97.0); VENT MODE BIPAP
--- NOTE | 2020-05-13 08:20 | NUR ---
RECIEVED PT LYING IN BED, OBTUNDED AND NON VERBAL. ON BIPAP MACHINE AT 16/6 RATE-20, FIO2-50%. HR IS ST WITH OCCASSIONAL PVC. O2 SAT 96-100%, TEMP-98.5F. NO APPAARENT DISTRESS NOTED. TUBE FEEDING IS OFF FOR NOW, NO RESIDUALS NOTED.
[2020-05-13] MEDS: PANTOPRAZOLE SODIUM 40 MG VIAL IV SCH ×2 (09:09→20:24)
[2020-05-13] MEDS: levETIRAcetam IV 1,000 MG in IV DEXTROSE 5% 100 ML IV SCH ×2 (09:10→20:24)
[2020-05-13] MEDS: ALLOPURINOL 100 MG TABLET PEG SCH (09:11)
[2020-05-13] MEDS: CHOLECALCIFEROL 1,000 UNIT TABLET PEG SCH (09:11)
[2020-05-13] MEDS: THIAMINE HCL 100 MG TABLET PEG SCH ×2 (09:11→20:24)
[2020-05-13] MEDS: ZINC SULFATE 220 MG CAPSULE PEG SCH (09:11)
[2020-05-13] MEDS: CLOTRIMAZOLE 1% CREAM 30 GM TUBE TOP SCH ×2 (09:12→20:25)
[2020-05-13] MEDS: ASCORBIC ACID 500 MG TABLET PEG SCH ×2 (09:12→20:25)
[2020-05-13] MEDS: Z GUARD REMEDY PASTE 57 GM TUBE TOP SCH ×2 (09:13→20:25)
--- NOTE | 2020-05-13 10:00 | NUR ---
SEEN AND EXAMINED BY DR LINCOLN WITH NEW ORDERS.
[2020-05-13] MEDS ORDERED: BUMETANIDE INJ 3 MG in IV DEXTROSE 5% 48 ML IV ONE (13:15)
--- NOTE | 2020-05-13 14:00 | NUR ---
BUMEX IVPB GIVEN ORDERED BY Adrian VELASQUEZ
[2020-05-13] MEDS: METOLAZONE 2.5 MG TABLET GT SCH (14:35)
[2020-05-13] MEDS: IV NORMAL SALINE 250 ML IV PRN (18:14)
--- NOTE | 2020-05-13 18:30 | NUR ---
PT DIURESED GOOD. CONDITION IS UNCHANGED.
[2020-05-13] MEDS: MELATONIN 3 MG TABLET PEG SCH (20:24)
[2020-05-13] MEDS: ATORVASTATIN 40 MG TABLET PEG SCH (20:24)
[2020-05-14] VITALS (24 sets, daily range): BP systolic 102–144; BP diastolic 49–73
[2020-05-14] MEDS: GUAIFENESIN SUGAR FREE 100 MG/5 ML UDC PEG SCH ×6 (00:05→20:31)
[2020-05-14] MEDS: ALBUTEROL SULFATE 2.5 MG/3 ML NEBU NEB SCH ×6 (02:38→23:14)
[2020-05-14] MEDS: IPRATROPIUM BROMIDE 0.5 MG/2.5 ML NEBU NEB SCH ×6 (02:38→23:14)
[2020-05-14] MEDS: MEROPENEM 500 MG in IV NORMAL SALINE 50 ML IV SCH ×2 (06:17→18:02)
[2020-05-14] MEDS: ACETYLCYSTEINE 20% 800 MG/4 ML VIAL NEB SCH ×3 (07:23→23:14)
--- NOTE | 2020-05-14 07:30 | NUR ---
Received report from shift superintendent nurse, patient in bed asleep, no distress noted at this time, bed in low position, side rails upx2. Patient is currently on air mattress, scd's on, IV fluids infusing in left picc line, oxygen saturation remains stable on Bipap, and Hemodynamically stable.
[2020-05-14] MEDS: METOCLOPRAMIDE HCL 10 MG/2 ML VIAL IV SCH ×4 (08:12→20:31)
[2020-05-14] MEDS: levETIRAcetam IV 1,000 MG in IV DEXTROSE 5% 100 ML IV SCH ×2 (08:14→20:32)
[2020-05-14] MEDS: ALLOPURINOL 100 MG TABLET PEG SCH (08:17)
[2020-05-14] MEDS: ASCORBIC ACID 500 MG TABLET PEG SCH ×2 (08:17→20:31)
[2020-05-14] MEDS: THIAMINE HCL 100 MG TABLET PEG SCH ×2 (08:17→20:31)
[2020-05-14] MEDS: PANTOPRAZOLE SODIUM 40 MG VIAL IV SCH ×2 (08:17→20:31)
[2020-05-14] MEDS: ZINC SULFATE 220 MG CAPSULE PEG SCH (08:17)
[2020-05-14] MEDS: CHOLECALCIFEROL 1,000 UNIT TABLET PEG SCH (08:35)
[2020-05-14] MEDS: METOLAZONE 2.5 MG TABLET GT SCH (08:50)
[2020-05-14 08:51] LABS: ABG BASE EXCESS -0.6 mmol/L; ABG HCO3 24.8 mmol/L; ABG PCO2 43.5 mmHg (35.0-45.0); ABG PH 7.373 (7.350-7.450); ABG PO2 75.1 mmHg (75.0-100.0); ABG SITE RIGHT RADIAL; ABG TOTAL HEMOGLOBIN 10.6 G/dL (13.5-18.0); COHb 1.1 % (0.5-1.5); MetHb 0.3 % (0.0-1.5); O2Hb 93.9 % (94.0-97.0); VENT MODE VENT - BILEVEL
[2020-05-14] MEDS: Z GUARD REMEDY PASTE 57 GM TUBE TOP SCH ×2 (09:00→20:34)
[2020-05-14] MEDS: CLOTRIMAZOLE 1% CREAM 30 GM TUBE TOP SCH ×2 (09:00→20:34)
[2020-05-14 09:14] LABS: CARBON DIOXIDE 31 mmol/L (21-32); CHLORIDE 110 mmol/L (98-107); CREATININE 1.7 mg/dL (0.6-1.3); GLUCOSE 84 mg/dL (74-106); MAGNESIUM 1.8 mg/dL (1.8-2.4); POTASSIUM 5.2 mmol/L (3.5-5.1); UREA NITROGEN, BLOOD 58 mg/dL (7-18)
[2020-05-14 09:20] LABS: BASOPHILS % (AUTO) 0.1 % (0.0-2.0); EOSINOPHILS # (AUTO) 0.1 K/uL (0.0-0.7); EOSINOPHILS % (AUTO) 0.3 % (0.0-7.0); HEMATOCRIT 23.5 % (36.7-47.1); LYMPHOCYTES # (AUTO) 1.1 K/uL (20.0-40.0); MEAN CORPUSCULAR HEMOGLOBIN 29.7 uug (23.8-33.4); MEAN CORPUSCULAR HGB CONC 31 g/dL (32.5-36.3); MONOCYTES # (AUTO) 1.1 K/uL (2.0-10.0); NEUTROPHILS # (AUTO) 19.9 K/uL (1.8-8.9); NEUTROPHILS % (AUTO) 89.6 % (38.5-71.5); PLATELET COUNT (AUTO) 192 K/uL (152-348); WHITE BLOOD COUNT (AUTO) 22.2 K/uL (3.6-10.2)
[2020-05-14 09:21] LABS: RED BLOOD CELL COUNT(AUTO) 2.47 MIL/uL (4.06-5.63)
[2020-05-14 09:22] LABS: HEMOGLOBIN 7.3 g/dL (12.5-16.3)
--- NOTE | 2020-05-14 10:15 | NUR ---
Patient seen by Dr. gutierrez, full report given.
[2020-05-14] MEDS: GLUCERNA 1.2 1000ML LIQUID GT PRN (10:48)
--- NOTE | 2020-05-14 11:45 | NUR ---
Patient seen by Dr. Bedoya.
[2020-05-14] MEDS: LORAZEPAM 0.5 MG TABLET PEG PRN ×2 (12:15→20:39)
[2020-05-14] MEDS ORDERED: BUMETANIDE INJ 3 MG in IV DEXTROSE 5% 48 ML IV ONE (18:00)
--- NOTE | 2020-05-14 18:47 | NUR ---
Patient in bed asleep, no distress noted at this time, bed in low position, side rails upx2. Patient is currently on air mattress, scd's on, IV antibiotics and bumex infusing in left picc line, oxygen saturation remains stable on Bipap, and Hemodynamically stable. Stevens draining clear yellow urine.
[2020-05-14] MEDS: ATORVASTATIN 40 MG TABLET PEG SCH (20:31)
[2020-05-14] MEDS: MELATONIN 3 MG TABLET PEG SCH (20:31)
--- NOTE | 2020-05-14 20:45 | NUR ---
Patient has been taken off BIPAP and placed on a high flow nasal cannula. Patient has several areas of skin breakdown on his face from the BIPAP mask.
--- NOTE | 2020-05-14 23:00 | NUR ---
Patient has been tolerating the high flow nasal cannula with saturation between 96-97%, however is more tachypneic with respirations in the low 30s. Patient is also no longer tachycardic with HR in the 80s.
[2020-05-15] VITALS (23 sets, daily range): BP systolic 113–133; BP diastolic 42–71
[2020-05-15] MEDS: GUAIFENESIN SUGAR FREE 100 MG/5 ML UDC PEG SCH ×6 (01:03→21:37)
[2020-05-15] MEDS: ALBUTEROL SULFATE 2.5 MG/3 ML NEBU NEB SCH ×6 (02:48→22:30)
[2020-05-15] MEDS: IPRATROPIUM BROMIDE 0.5 MG/2.5 ML NEBU NEB SCH ×6 (02:48→22:30)
[2020-05-15 05:06] LABS: BASOPHILS # (AUTO) 0.1 K/uL (0.0-8.0); BASOPHILS % (AUTO) 0.2 % (0.0-2.0); EOSINOPHILS % (AUTO) 0.1 % (0.0-7.0)
[2020-05-15 05:11] LABS: HEMATOCRIT 24.9 % (36.7-47.1); LYMPHOCYTES # (AUTO) 0.8 K/uL (20.0-40.0); LYMPHOCYTES % (AUTO) 2.3 % (20.5-51.5); MEAN CORPUSCULAR HGB CONC 32 g/dL (32.5-36.3); MEAN CORPUSCULAR VOLUME 93.4 fL (73.0-96.2); MONOCYTES # (AUTO) 1.5 K/uL (2.0-10.0); MONOCYTES % (AUTO) 4.2 % (0.0-11.0); NEUTROPHILS # (AUTO) 32.4 K/uL (1.8-8.9); NEUTROPHILS % (AUTO) 93.2 % (38.5-71.5); PLATELET COUNT (AUTO) 203 K/uL (152-348); RED BLOOD CELL COUNT(AUTO) 2.66 MIL/uL (4.06-5.63)
[2020-05-15 05:28] LABS: WHITE BLOOD COUNT (AUTO) 34.8 K/uL (3.6-10.2)
[2020-05-15 05:35] LABS: IRON, SERUM 15 ug/dL (50-175)
[2020-05-15] MEDS: MEROPENEM 500 MG in IV NORMAL SALINE 50 ML IV SCH ×2 (06:11→18:30)
[2020-05-15 06:18] LABS: CARBON DIOXIDE 31 mmol/L (21-32); CHLORIDE 105 mmol/L (98-107); CREATININE 1.7 mg/dL (0.6-1.3); FERRITIN 3641 ng/mL (26-388); GLUCOSE 143 mg/dL (74-106); MAGNESIUM 1.8 mg/dL (1.8-2.4); PHOSPHOROUS 4.2 mg/dL (2.5-4.9); POTASSIUM 5.6 mmol/L (3.5-5.1); UREA NITROGEN, BLOOD 59 mg/dL (7-18)
[2020-05-15] MEDS: ACETAMINOPHEN 650 MG/20.3 ML LIQUID UDC GT PRN (07:05)
--- NOTE | 2020-05-15 07:20 | NUR ---
Received report from shift supervisor melting nurse, patient in bed awake, on high flow oxygen 50%, air mattress inflated, petit draining, hemodynamically stable, bed in low position, side rails up x2.
[2020-05-15] MEDS: METOCLOPRAMIDE HCL 10 MG/2 ML VIAL IV SCH ×4 (07:49→21:37)
[2020-05-15] MEDS: ACETYLCYSTEINE 20% 800 MG/4 ML VIAL NEB SCH ×3 (08:04→22:30)
[2020-05-15 08:25] LABS: ABG BASE EXCESS 5.7 mmol/L; ABG HCO3 29.5 mmol/L; ABG PCO2 39.2 mmHg (35.0-45.0); ABG PH 7.494 (7.350-7.450); ABG PO2 66.5 mmHg (75.0-100.0); ABG SITE LEFT RADIAL; COHb 1.4 % (0.5-1.5); MetHb 0.3 % (0.0-1.5); O2Hb 90.9 % (94.0-97.0); VENT MODE HF - Aquinox
--- NOTE | 2020-05-15 08:44 | NUR ---
[facility] orders received for [facility] pharmacy to dose.
[2020-05-15] MEDS: METOLAZONE 2.5 MG TABLET GT SCH (08:49)
[2020-05-15] MEDS: PANTOPRAZOLE SODIUM 40 MG VIAL IV SCH ×2 (08:51→21:37)
[2020-05-15] MEDS: ALLOPURINOL 100 MG TABLET PEG SCH (08:51)
[2020-05-15] MEDS: ASCORBIC ACID 500 MG TABLET PEG SCH ×2 (08:51→21:37)
[2020-05-15] MEDS: THIAMINE HCL 100 MG TABLET PEG SCH ×2 (08:51→21:37)
[2020-05-15] MEDS: levETIRAcetam IV 1,000 MG in IV DEXTROSE 5% 100 ML IV SCH ×2 (08:51→21:37)
[2020-05-15] MEDS: CHOLECALCIFEROL 1,000 UNIT TABLET PEG SCH (08:51)
[2020-05-15] MEDS: ZINC SULFATE 220 MG CAPSULE PEG SCH (08:51)
[2020-05-15] MEDS: CLOTRIMAZOLE 1% CREAM 30 GM TUBE TOP SCH ×2 (08:52→21:40)
[2020-05-15] MEDS: Z GUARD REMEDY PASTE 57 GM TUBE TOP SCH ×2 (08:52→21:40)
[2020-05-15] MEDS ORDERED: VANCOMYCIN IV 1,000 MG in IV DEXTROSE 5% 250 ML IV ONE (09:00)
[2020-05-15 09:37] LABS: BAND % (MANUAL) 2 % (0-10); LYMPHOCYTES % (MANUAL) 2 % (20-40); MONOCYTES % (MANUAL) 8 % (2-10); MYELOCYTES % 1 % (0-0); NEUTROPHILS % (MANUAL) 87 % (42-75)
[2020-05-15] MEDS: GLUCERNA 1.2 1000ML LIQUID GT PRN (10:52)
[2020-05-15] MEDS ORDERED: BUMETANIDE INJ 4 MG in IV DEXTROSE 5% 24 ML IV ONE (12:00)
[2020-05-15] MEDS ORDERED: METOLAZONE 2.5 MG TABLET GT ONE (12:00)
--- NOTE | 2020-05-15 18:48 | NUR ---
Patient has been cooperative with care, no distress noted throughout shift, patient had two loose stools this shift and was sent to lab for C-diff testing. Patient continues to be on 50L high flow oxygen saturating 99%, Tachycardic on the monitor with pitting edema, Tube feeding continues @ 60cc/hr, petit draining clear pale yellow urine. Air mattress inflated, head elevated, and heels offloaded. Bed in low position, side rails upx2 with padded rails.
--- NOTE | 2020-05-15 19:30 | NUR ---
LORNE VIDAL FIBERGLASS DOWEL DRAWING OPERATOR CAME AND RN FROM DAY SHIFT UPDATED HER WITH PATIENT CONDITON ,WITH ORDERS BLOOD CULTURE AND URINE CULTURE .
--- NOTE | 2020-05-15 19:45 | NUR ---
ROUNDS MADE AND PATIENT OPEN EYES TO NAME ,ABLE TO MOVED LOWER EXTREMITIES BUT VERY WEAK ON UPPER EXTREMITIES SEVERE WEAKNESS ,TURNED AND REPOSITION PATIENT TURNED TO LEFT SIDE AND BILATERAL LOWER EXTREMITIES UP WITH PILLOWS HEELS OFFLOADED . F.C TO BSD WITH 350 ML OF YELLOWISH URINE . TUBE FEEDINGS IN PROGRESS GLUCERNA AT 60 ML HR IN PROGRESS .+ B/S IN 4 QUADRANTS , PER DAY SHIFT RN HAD X2 LOOSE BM AND STOOL WAS SENT FOR C DIFF .
[2020-05-15] MEDS: ATORVASTATIN 40 MG TABLET PEG SCH (21:37)
[2020-05-15] MEDS: METRONIDAZOLE 500 MG TABLET PO SCH (21:38)
[2020-05-15] MEDS: MELATONIN 3 MG TABLET PEG SCH (21:39)
--- NOTE | 2020-05-15 22:59 | NUR ---
RESPIRATORY THERAPIST AT BS/ CHECKED HI FLOW AND ORAL CARE DONE AND SUCTION PATIENT .HOB UP 96% FIO2 AND RR 28.TOLERATING HI LFOW 02 AT 50 % FIO2 AT 50 LITERS .
[2020-05-16] VITALS (24 sets, daily range): BP systolic 96–139; BP diastolic 38–86
[2020-05-16] MEDS: GUAIFENESIN SUGAR FREE 100 MG/5 ML UDC PEG SCH ×6 (00:25→19:55)
[2020-05-16] MEDS: ACETAMINOPHEN 650 MG/20.3 ML LIQUID UDC GT PRN ×2 (00:25→20:31)
--- NOTE | 2020-05-16 00:30 | NUR ---
FACIAL GRIMACE NOTED AND RR INCREASE AFTER TURING AND REPOSITIONING HR 115, GIVEN PRN TYLENOL C/O PAIN USING THE FLAAC/NON VERBAL PAIN SCORE .
[2020-05-16] MEDS: IV NORMAL SALINE 250 ML IV PRN (02:02)
[2020-05-16] MEDS: ALBUTEROL SULFATE 2.5 MG/3 ML NEBU NEB SCH ×6 (02:35→22:35)
[2020-05-16] MEDS: IPRATROPIUM BROMIDE 0.5 MG/2.5 ML NEBU NEB SCH ×6 (02:35→22:35)
--- NOTE | 2020-05-16 04:30 | NUR ---
AM CARE DONE BATH PATIENT ,INCONTINENT OF STOOL MODERATE BROWNISH LIQUID SOFT STOOL,CHANGED SOILED LINENS AND GOWN . Z GUARD APPLIED TO SACRAL AREA AND APPLIED CLOTRIMAZOLE BILATERAL GROIN AND PERIANAL AREA .PLACED MEPILEX TO SACRAL AREA AND MEPILEX TO BILATERAL HEELS . ELEVATED HEELS WITH PILLOWS .ORAL CARE DONE SUCTION PATIENT .HOB UP . F/C DONE ,CHANGED PEG TUBE DRESSING .
[2020-05-16] MEDS: MEROPENEM 500 MG in IV NORMAL SALINE 50 ML IV SCH ×2 (05:09→18:12)
[2020-05-16] MEDS: METRONIDAZOLE 500 MG TABLET PO SCH ×3 (05:09→22:34)
[2020-05-16 05:33] LABS: CARBON DIOXIDE 33 mmol/L (21-32); CHLORIDE 104 mmol/L (98-107); CREATININE 1.6 mg/dL (0.6-1.3); GLUCOSE 107 mg/dL (74-106); MAGNESIUM 1.7 mg/dL (1.8-2.4); PHOSPHOROUS 4.9 mg/dL (2.5-4.9); POTASSIUM 5.2 mmol/L (3.5-5.1); UREA NITROGEN, BLOOD 59 mg/dL (7-18); VANCOMYCIN,RANDOM 21.8 ug/mL (18.0-26.0)
[2020-05-16 05:57] LABS: BASOPHILS # (AUTO) 0.1 K/uL (0.0-8.0); BASOPHILS % (AUTO) 0.4 % (0.0-2.0); EOSINOPHILS % (AUTO) 0.1 % (0.0-7.0); HEMATOCRIT 23.3 % (36.7-47.1); HEMOGLOBIN 7.7 g/dL (12.5-16.3); LYMPHOCYTES % (AUTO) 2.7 % (20.5-51.5); MEAN CORPUSCULAR HEMOGLOBIN 30.2 uug (23.8-33.4); MEAN CORPUSCULAR HGB CONC 33 g/dL (32.5-36.3); MEAN CORPUSCULAR VOLUME 91.7 fL (73.0-96.2); MONOCYTES # (AUTO) 0.9 K/uL (2.0-10.0); MONOCYTES % (AUTO) 2.2 % (0.0-11.0); NEUTROPHILS # (AUTO) 37.2 K/uL (1.8-8.9); NEUTROPHILS % (AUTO) 94.6 % (38.5-71.5); PLATELET COUNT (AUTO) 206 K/uL (152-348); RED BLOOD CELL COUNT(AUTO) 2.54 MIL/uL (4.06-5.63)
[2020-05-16 06:10] LABS: ABG BASE EXCESS 8.5 mmol/L; ABG HCO3 32.7 mmol/L; ABG PCO2 43.7 mmHg (35.0-45.0); ABG PH 7.492 (7.350-7.450); ABG PO2 76.7 mmHg (75.0-100.0); ABG SITE RIGHT RADIAL; ABG TOTAL HEMOGLOBIN 9.8 G/dL (13.5-18.0); COHb 0.7 % (0.5-1.5); MetHb 0.3 % (0.0-1.5); O2Hb 94.4 % (94.0-97.0)
[2020-05-16 06:13] LABS: WHITE BLOOD COUNT (AUTO) 39.3 K/uL (3.6-10.2)
[2020-05-16 06:21] LABS: BAND % (MANUAL) 2 % (0-10); LYMPHOCYTES % (MANUAL) 3 % (20-40); MONOCYTES % (MANUAL) 4 % (2-10); NEUTROPHILS % (MANUAL) 91 % (42-75)
--- NOTE | 2020-05-16 07:15 | NUR ---
Received report from rn pacu nurse, patient in bed awake, no distress noted at this time, patient continues to be on high flow oxygen at 50L 50%, gtube feeding placed on hold. Sinus tach on the monitor, Noted to have loose stool (cleansed and changed linen). Oral care performed, and repositioned patient on left side. No distress noted at this time.
[2020-05-16] MEDS: METOCLOPRAMIDE HCL 10 MG/2 ML VIAL IV SCH ×4 (07:43→20:30)
[2020-05-16] MEDS: ACETYLCYSTEINE 20% 800 MG/4 ML VIAL NEB SCH ×3 (07:44→22:35)
[2020-05-16] MEDS: PANTOPRAZOLE SODIUM 40 MG VIAL IV SCH ×2 (08:07→20:30)
[2020-05-16] MEDS: CHOLECALCIFEROL 1,000 UNIT TABLET PEG SCH (08:07)
[2020-05-16] MEDS: METOLAZONE 2.5 MG TABLET GT SCH (08:07)
[2020-05-16] MEDS: THIAMINE HCL 100 MG TABLET PEG SCH ×2 (08:07→20:31)
[2020-05-16] MEDS: ASCORBIC ACID 500 MG TABLET PEG SCH ×2 (08:07→20:31)
[2020-05-16] MEDS: levETIRAcetam IV 1,000 MG in IV DEXTROSE 5% 100 ML IV SCH ×2 (08:08→20:29)
[2020-05-16] MEDS: Z GUARD REMEDY PASTE 57 GM TUBE TOP SCH ×2 (08:08→20:37)
[2020-05-16] MEDS: ALLOPURINOL 100 MG TABLET PEG SCH (08:08)
[2020-05-16] MEDS: ZINC SULFATE 220 MG CAPSULE PEG SCH (08:08)
[2020-05-16] MEDS: CLOTRIMAZOLE 1% CREAM 30 GM TUBE TOP SCH ×2 (08:09→20:37)
[2020-05-16] MEDS ORDERED: METOLAZONE 2.5 MG TABLET GT SCH (09:00)
--- NOTE | 2020-05-16 09:09 | NUR ---
Clinical Pharmacy Note: Vancomycin Pharmacy to Dose Subjective: To continue vancomycin in this 74y/o male for suspected infection (worsening fo WBC) Objective: weight 56kg height 148cm BUN/SCr 59/1.6 wbc 39.8 temp 97.8 Vanco random with am labs on 05/16: 21.8 Assessment/Plan As renal function has decreased, will continue dosing per level. Per today's random, dosed vanco 750 mg IVPB x1 at 2100 (as expected vanco level will be within therapeutic range by 2100). As Scr continues to increase, will check tomorrow's labs and decide when to order next random accordingly. Will follow
[2020-05-16] MEDS: GLUCERNA 1.2 1000ML LIQUID GT PRN ×2 (10:02→20:35)
[2020-05-16] MEDS ORDERED: METOLAZONE 2.5 MG TABLET PO ONE (11:00)
[2020-05-16] MEDS ORDERED: MAGNESIUM SULFATE/D5W 100 ML IV SCH (11:45)
[2020-05-16] MEDS: PROTEIN SUPPLEMENT (PROSTAT) 30 ML LIQUID PO SCH ×3 (11:56→20:36)
[2020-05-16] MEDS ORDERED: BUMETANIDE INJ 3 MG in IV DEXTROSE 5% 48 ML IV ONE (12:00)
--- NOTE | 2020-05-16 12:15 | NUR ---
Patient had a rapid decline in HR and oxygen saturation. Contacted Dr. Bedoya, order received for EKG and ABG.
[2020-05-16 12:26] LABS: ABG BASE EXCESS 6.7 mmol/L; ABG HCO3 30.6 mmol/L; ABG PCO2 40.8 mmHg (35.0-45.0); ABG PH 7.493 (7.350-7.450); ABG PO2 66.6 mmHg (75.0-100.0); ABG SITE RIGHT RADIAL; ABG TOTAL HEMOGLOBIN 8.4 G/dL (13.5-18.0); COHb 1.3 % (0.5-1.5); MetHb 0.3 % (0.0-1.5); O2Hb 91.4 % (94.0-97.0); VENT MODE HFNC
--- NOTE | 2020-05-16 12:32 | NUR ---
ABG results reported to Dr. rosado and EKG currently being done. RT increased oxygen levels on High flow.
--- NOTE | 2020-05-16 14:00 | NUR ---
Contacted Dr. Diaz to review results of CT of abdomen, which recommended a follow up US of gallbladder. US gallbladder ordered in light of increased WBC's.
--- NOTE | 2020-05-16 15:58 | NUR ---
Notified Nera of WBC results and results of US Gallbladder.
--- NOTE | 2020-05-16 19:00 | NUR ---
Patient in bed asleep, no distress noted at this time, patient continues to be on high flow oxygen at 60L, gtube feeding continues with low residuals and multiple stools today. Sinus tach on the monitor, patients edema has decreased with the bumex administration. Frequent repositioning and Oral care performed, Stevens draining clear yellow urine. No distress noted at this time. bed in low position, side rails up x2.
--- NOTE | 2020-05-16 20:00 | NUR ---
rounds made patient open eyes spontaneously but doesn't follow commands and non verbal .sr to st 109 on the heart monitor with occasional paced rtyhytm ,tolerating hi flow 02,fio2 60% and 50 liters .hob up . checked tf Glucerna in progress via the peg tolerating 60 ml/hr but patient is having loose bms awaiting c diff results and as per ultra sound of the abdomen right upper quadrant patient + cholecystitis .will continue to monitor for bm and will keep patient clean and dry .
[2020-05-16] MEDS: ATORVASTATIN 40 MG TABLET PEG SCH (20:31)
[2020-05-16] MEDS: MELATONIN 3 MG TABLET PEG SCH (20:36)
[2020-05-16] MEDS ORDERED: VANCOMYCIN IV 750 MG in IV DEXTROSE 5% 250 ML IV ONE (21:00)
--- NOTE | 2020-05-16 21:15 | NUR ---
due medication given via the peg ,crushed tablet and given with water ,aspiration precaution observed , due antibiotic given spoked with pharmacy and ok to give vancomycin 750 mg ivpb x1 .vancomycin random 21.8spoked with TESSIE .PHARMACIST .
--- NOTE | 2020-05-16 22:00 | NUR ---
incontinent of stool ,soft to liquid brownish in color . changed soiled linens and gown , skin care done applied z guard to rectal and perianal area and sacral area .
[2020-05-17] VITALS (22 sets, daily range): BP systolic 100–128; BP diastolic 43–75
--- NOTE | 2020-05-17 | NUR ---
sleeping no s/s/ of respiratory distress tolerating hiflow . saturation 100% and rr r16 to 18.
[2020-05-17] MEDS: GUAIFENESIN SUGAR FREE 100 MG/5 ML UDC PEG SCH ×7 (01:22→23:52)
--- NOTE | 2020-05-17 04:15 | NUR ---
am care done ,bath patient ,incontinent of stool this time its liquid and loose . inserted flexiseal .irrigated rectal tube .position to his left side offloaded back with pillow . rectal and perineal area redness noted applied z guard to rectal area and around the sacral and bilateral groin area ,f/c done .oral care done suction via the mouth .
[2020-05-17] MEDS: MEROPENEM 500 MG in IV NORMAL SALINE 50 ML IV SCH ×2 (05:21→17:50)
[2020-05-17] MEDS: METRONIDAZOLE 500 MG TABLET PO SCH ×2 (05:23→14:05)
[2020-05-17 05:26] LABS: CARBON DIOXIDE 35 mmol/L (21-32); CHLORIDE 102 mmol/L (98-107); CREATININE 1.5 mg/dL (0.6-1.3); GLUCOSE 88 mg/dL (74-106); PHOSPHOROUS 5.5 mg/dL (2.5-4.9); POTASSIUM 4.7 mmol/L (3.5-5.1); UREA NITROGEN, BLOOD 69 mg/dL (7-18)
[2020-05-17 05:35] LABS: BASOPHILS # (AUTO) 0.2 K/uL (0.0-8.0); BASOPHILS % (AUTO) 0.6 % (0.0-2.0); EOSINOPHILS # (AUTO) 0.1 K/uL (0.0-0.7); EOSINOPHILS % (AUTO) 0.5 % (0.0-7.0); HEMATOCRIT 23.2 % (36.7-47.1); LYMPHOCYTES # (AUTO) 1.3 K/uL (20.0-40.0); LYMPHOCYTES % (AUTO) 4.3 % (20.5-51.5); MEAN CORPUSCULAR HEMOGLOBIN 29.9 uug (23.8-33.4); MEAN CORPUSCULAR HGB CONC 32 g/dL (32.5-36.3); MEAN CORPUSCULAR VOLUME 93.3 fL (73.0-96.2); MONOCYTES # (AUTO) 1.6 K/uL (2.0-10.0); MONOCYTES % (AUTO) 5.6 % (0.0-11.0); NEUTROPHILS # (AUTO) 26.1 K/uL (1.8-8.9); PLATELET COUNT (AUTO) 235 K/uL (152-348); WHITE BLOOD COUNT (AUTO) 29.3 K/uL (3.6-10.2)
[2020-05-17] MEDS: IPRATROPIUM BROMIDE 0.5 MG/2.5 ML NEBU NEB SCH ×6 (05:51→23:17)
[2020-05-17] MEDS: ALBUTEROL SULFATE 2.5 MG/3 ML NEBU NEB SCH ×6 (05:52→23:17)
[2020-05-17 06:06] LABS: RED BLOOD CELL COUNT(AUTO) 2.49 MIL/uL (4.06-5.63)
[2020-05-17 06:07] LABS: HEMOGLOBIN 7.4 g/dL (12.5-16.3)
[2020-05-17 06:56] LABS: BAND % (MANUAL) 3 % (0-10); LYMPHOCYTES % (MANUAL) 7 % (20-40); MONOCYTES % (MANUAL) 6 % (2-10); NEUTROPHILS % (MANUAL) 84 % (42-75)
--- NOTE | 2020-05-17 07:30 | NUR ---
SEEN AND EXAMINED BY DR CONSTANTINO WITH NEW [id number].
--- NOTE | 2020-05-17 07:30 | NUR ---
PT OPENS EYES TO CALL, NON-VERBAL. GENERALIZED WEAKNESS ON ALL EXTREMETIES. PACING OCCASSIONALLT WITH UNDERLYING SR-ST. AFEBRILE. ON HIGH FLOW O2 AT 60% FIO2. SATURATION IS 98-100%. NO APPARENT RESPIRATORY DISTRESS NOTED.
[2020-05-17] MEDS: ACETYLCYSTEINE 20% 800 MG/4 ML VIAL NEB SCH ×3 (07:35→23:17)
[2020-05-17] MEDS: METOCLOPRAMIDE HCL 10 MG/2 ML VIAL IV SCH ×4 (07:46→20:42)
[2020-05-17] MEDS: PROTEIN SUPPLEMENT (PROSTAT) 30 ML LIQUID PO SCH ×4 (07:51→21:34)
[2020-05-17] MEDS: CHOLECALCIFEROL 1,000 UNIT TABLET PEG SCH (08:54)
[2020-05-17] MEDS: ALLOPURINOL 100 MG TABLET PEG SCH (08:54)
[2020-05-17] MEDS: ZINC SULFATE 220 MG CAPSULE PEG SCH (08:54)
[2020-05-17] MEDS: ASCORBIC ACID 500 MG TABLET PEG SCH ×2 (08:54→20:38)
[2020-05-17] MEDS: METOLAZONE 2.5 MG TABLET GT SCH (08:54)
[2020-05-17] MEDS: levETIRAcetam IV 1,000 MG in IV DEXTROSE 5% 100 ML IV SCH ×2 (08:55→20:37)
[2020-05-17] MEDS: PANTOPRAZOLE SODIUM 40 MG VIAL IV SCH ×2 (08:55→20:41)
[2020-05-17] MEDS: THIAMINE HCL 100 MG TABLET PEG SCH ×2 (08:55→20:38)
[2020-05-17] MEDS: Z GUARD REMEDY PASTE 57 GM TUBE TOP SCH ×2 (08:57→21:33)
[2020-05-17] MEDS: CLOTRIMAZOLE 1% CREAM 30 GM TUBE TOP SCH ×2 (08:58→21:33)
--- NOTE | 2020-05-17 09:00 | NUR ---
Clinical Pharmacy Note: Vancomycin Pharmacy to Dose Subjective: To continue vancomycin in this 74y/o male for severe sepsis(worsening leukocytosis), acute cholecystitis and HCAP. Objective: weight 56kg height 148cm BUN/SCr 69/1.5 wbc 29.3 temp 97.8 Vanco random with am labs on 05/16: 21.8 Assessment/Plan As renal function has decreased, will continue dosing per level. Vanco 750 mg IVPB x1 was given last night at 2100 . As Scr continues to be unstable, will order random today at 1500 for further dosing. Will follow. Addendum: 05/17/20 at 1616 by GARETT LEWIS VANCOMYCIN RANDOM TODAY AT 1500:26.9, NO DOSE SHALL BE GIVEN TODAY, WILL CHECK RANDOM IN AM.
--- NOTE | 2020-05-17 10:00 | NUR ---
GTUBE INTACT, BOWEL SOUND PRESENT. TUBEFEEDING GLUCERNA STARTED FOR THE DAY AT 60ML/HR TOLERATING GOOD. BOWEL SOUNDS PRESENT.PT IS HAVING LOOSE LIQUID STOOLS MODERATE AMOUNT. FLEXISEAL IN PLACE AND DRAINING GOOD.
--- NOTE | 2020-05-17 10:30 | NUR ---
SEEN AND EXAMINED BY DR FINNEGAN WITH NEW ORDERS. TALKED TO HIM ABOUT PT'S CODE STATUS, AND HE SAID HE WILL CALL THE CONSERVATOR.
[2020-05-17] MEDS: GLUCERNA 1.2 1000ML LIQUID GT PRN (11:11)
[2020-05-17] MEDS: ACETAMINOPHEN 650 MG/20.3 ML LIQUID UDC GT PRN ×2 (11:43→20:10)
[2020-05-17] MEDS: IV NORMAL SALINE 250 ML IV PRN (11:50)
[2020-05-17] MEDS ORDERED: BUMETANIDE INJ 2 MG in IV DEXTROSE 5% 32 ML IV ONE (12:30)
--- NOTE | 2020-05-17 13:02 | NUR ---
decrease Fio2 to 50%
--- NOTE | 2020-05-17 17:15 | NUR ---
SEEN AND EXAMINED BY DR MOULTON WITH NO ORDERS.
--- NOTE | 2020-05-17 17:40 | NUR ---
SEEN AND EXAMINED BY DAT RN CLINICAL REVIEW SURGERY, NO NEW ORDERS MADE.
--- NOTE | 2020-05-17 20:00 | NUR ---
rounds made patient in bed open eyes to name but doesn't follow commands ,patient able to moved upper and lower extremities slow and weak . no respiratory distress noted on hi flow at 50 % fio2 =50 LITERS . saturation 93 to 95% .tubed feedings in progress patient on Glucerna 1.2 at 60 ml/hr via the peg . rectal tube in placed with liquid brownish stool to gravity drain .f/c to to bsd with yellowish urine sr to v paced on the heart monitor . checked temp afebrile 98.3 via axillary .hob up will continue to monitor v/s..
[2020-05-17] MEDS: MELATONIN 3 MG TABLET PEG SCH (20:39)
[2020-05-17] MEDS: ATORVASTATIN 40 MG TABLET PEG SCH (20:40)
[2020-05-17] MEDS ORDERED: PROTEIN SUPPLEMENT (PROSTAT) 30 ML LIQUID GT SCH (21:00)
--- NOTE | 2020-05-17 21:00 | NUR ---
due medication given and crushed tablet and given via the peg .flushed peg with water very minimal residual only 20 ml . aspiration precaution observes and hob
--- NOTE | 2020-05-17 23:24 | NUR ---
respiratory therapist at bed gave patient breathing treatment and CPT .SUCTION AND ORAL CARE DONE .
[2020-05-18] VITALS (23 sets, daily range): BP systolic 105–135; BP diastolic 46–69
[2020-05-18] MEDS: GUAIFENESIN SUGAR FREE 100 MG/5 ML UDC PEG SCH ×6 (03:13→23:39)
[2020-05-18] MEDS: ACETAMINOPHEN 650 MG/20.3 ML LIQUID UDC GT PRN ×2 (03:13→18:17)
[2020-05-18] MEDS: IPRATROPIUM BROMIDE 0.5 MG/2.5 ML NEBU NEB SCH ×6 (03:28→23:31)
[2020-05-18] MEDS: ALBUTEROL SULFATE 2.5 MG/3 ML NEBU NEB SCH ×6 (03:28→23:31)
--- NOTE | 2020-05-18 04:00 | NUR ---
AM CARE DONE BATH PATIENT CHANGED SOILED LINENS AND GOWN . SKIN CARE DONE .CHANGED BAG RECTAL TUBE ITS FULL 850 ML OF LIQUID BROWNISH STOOLS .
[2020-05-18 05:21] LABS: BASOPHILS # (AUTO) 0.2 K/uL (0.0-8.0); BASOPHILS % (AUTO) 0.6 % (0.0-2.0); EOSINOPHILS # (AUTO) 0.2 K/uL (0.0-0.7); EOSINOPHILS % (AUTO) 0.8 % (0.0-7.0); HEMATOCRIT 23.3 % (36.7-47.1); HEMOGLOBIN 7.5 g/dL (12.5-16.3); LYMPHOCYTES # (AUTO) 0.9 K/uL (20.0-40.0); LYMPHOCYTES % (AUTO) 3.4 % (20.5-51.5); MEAN CORPUSCULAR HEMOGLOBIN 30.1 uug (23.8-33.4); MEAN CORPUSCULAR HGB CONC 32 g/dL (32.5-36.3); MEAN CORPUSCULAR VOLUME 93.7 fL (73.0-96.2); MONOCYTES # (AUTO) 1.6 K/uL (2.0-10.0); MONOCYTES % (AUTO) 6.4 % (0.0-11.0); NEUTROPHILS # (AUTO) 22.4 K/uL (1.8-8.9); NEUTROPHILS % (AUTO) 88.8 % (38.5-71.5); PLATELET COUNT (AUTO) 248 K/uL (152-348); WHITE BLOOD COUNT (AUTO) 25.2 K/uL (3.6-10.2)
[2020-05-18 05:32] LABS: ALANINE AMINOTRANSFERASE 30 U/L (16-63); ALKALINE PHOSPHATASE 445 U/L (50-136); ASPARTATE AMINOTRANSFERASE 55 U/L (15-37); BILIRUBIN,TOTAL 0.4 mg/dL (0.2-1.0); CARBON DIOXIDE 32 mmol/L (21-32); CHLORIDE 102 mmol/L (98-107); CREATININE 1.8 mg/dL (0.6-1.3); GLUCOSE 146 mg/dL (74-106); MAGNESIUM 1.7 mg/dL (1.8-2.4); PHOSPHOROUS 4.9 mg/dL (2.5-4.9); POTASSIUM 4.3 mmol/L (3.5-5.1); TOTAL PROTEIN, SERUM 6.2 g/dL (6.4-8.2)
[2020-05-18] MEDS: MEROPENEM 500 MG in IV NORMAL SALINE 50 ML IV SCH ×2 (05:38→18:17)
[2020-05-18 05:52] LABS: RED BLOOD CELL COUNT(AUTO) 2.49 MIL/uL (4.06-5.63)
[2020-05-18 05:55] LABS: UREA NITROGEN, BLOOD 85 mg/dL (7-18)
--- NOTE | 2020-05-18 07:30 | NUR ---
RECIEVED PT SOUND ASLEEP IN BED AT 30DEGREES HOB UP. AROUSABLE TO CALL, NON VERBAL AND RESPONSIVE TO STIMULI. GENERALIZED WEAKNESS AND EDEMA IN THE EXTREMETIES. HR V-PACING 100%, SINUS TACHYCARDIC MOST OF THE TIME. AFEBRILE. PICC LINE AND MIDLINE SITE IS INTACT AND CLEAN.
--- NOTE | 2020-05-18 07:30 | NUR ---
SEEN AND EXAMINED BY DR CONSTANTINO WITH NEW ORDERS. WILL CONTINUE TO WEAN DOWN O2 TO KEEP SAT GREATER THAN 93%. RT IS AWARE.
[2020-05-18 07:35] LABS: ABG BASE EXCESS 7.7 mmol/L; ABG HCO3 32.3 mmol/L; ABG PCO2 46.4 mmHg (35.0-45.0); ABG PH 7.461 (7.350-7.450); ABG PO2 85.7 mmHg (75.0-100.0); ABG SITE RIGHT RADIAL; ABG TOTAL HEMOGLOBIN 8.2 G/dL (13.5-18.0); COHb 1.2 % (0.5-1.5); MetHb 0.6 % (0.0-1.5); O2Hb 94.7 % (94.0-97.0); VENT MODE HFNC
[2020-05-18] MEDS: METOCLOPRAMIDE HCL 10 MG/2 ML VIAL IV SCH (07:45)
[2020-05-18] MEDS: PROTEIN SUPPLEMENT (PROSTAT) 30 ML LIQUID PO SCH ×4 (07:46→20:36)
[2020-05-18] MEDS: ACETYLCYSTEINE 20% 800 MG/4 ML VIAL NEB SCH ×3 (07:54→23:31)
--- NOTE | 2020-05-18 08:00 | NUR ---
PT ON HIGH FLOW O2 AT 50% AND 50L O2, SATURATING GOOD. GTUBE IS INTACT AND CLAMPED AT THIS TIME. PT ON GLUCERNA 1.2 TUBE FEEDING X22HRS..TO START AT 10AM ABDOMEN IS SOFT AND NOT DISTENDED. NO RESIDUALS NOTED.
[2020-05-18] MEDS: PANTOPRAZOLE SODIUM 40 MG VIAL IV SCH ×2 (08:36→20:34)
[2020-05-18] MEDS: CHOLECALCIFEROL 1,000 UNIT TABLET PEG SCH (08:36)
[2020-05-18] MEDS: METOLAZONE 2.5 MG TABLET GT SCH (08:36)
[2020-05-18] MEDS: ASCORBIC ACID 500 MG TABLET PEG SCH ×2 (08:36→20:35)
[2020-05-18] MEDS: THIAMINE HCL 100 MG TABLET PEG SCH ×2 (08:37→20:35)
[2020-05-18] MEDS: ALLOPURINOL 100 MG TABLET PEG SCH (08:37)
[2020-05-18] MEDS: ZINC SULFATE 220 MG CAPSULE PEG SCH (08:37)
[2020-05-18] MEDS: Z GUARD REMEDY PASTE 57 GM TUBE TOP SCH ×2 (08:38→20:37)
[2020-05-18] MEDS: CLOTRIMAZOLE 1% CREAM 30 GM TUBE TOP SCH ×2 (08:38→20:37)
[2020-05-18] MEDS: levETIRAcetam IV 1,000 MG in IV DEXTROSE 5% 100 ML IV SCH ×2 (08:39→21:05)
[2020-05-18] MEDS: GLUCERNA 1.2 1000ML LIQUID GT PRN (10:05)
--- NOTE | 2020-05-18 11:00 | NUR ---
RT TURNED DOWN O2 TO 40%, 40L AND O2 SATURATION IS 95%.
--- NOTE | 2020-05-18 11:40 | NUR ---
PT STILL HAVING LARGE AMOUNT OF LIQUID STOOLS. INFORMED DR FINNEGAN, CDIF IS NEGATIVE. WILL DISCONTINUE REGLAN AND ORDERE ANTI DIARRHEA. FLEXOSEAL IS INTACT AND DRAINING GOOD.
--- NOTE | 2020-05-18 11:50 | NUR ---
SEEN AND EXAMINED BY DR FINNEGAN WITH NEW ORDERS.
[2020-05-18] MEDS: MAGNESIUM SULFATE/D5W 100 ML IV SCH ×3 (12:39→15:19)
[2020-05-18] MEDS: LOPERAMIDE HCL 1 MG/5 ML UDC PO PRN (12:46)
--- NOTE | 2020-05-18 16:00 | NUR ---
MEDICATED WITH LOMOTIL FOR DIARHHEA ORDERED VIA GT.
--- NOTE | 2020-05-18 20:00 | NUR ---
RECEIVED PT OPEN HIS TO VERBAL STIMULI, APPEARS LETHARGIC. ON O2 @ 40% HIGH FLOW W/ O2 SAT OF 95%. G-TUBE INTACT CHECKED PLACEMENT & CHECKED RESIDUAL 150CC NOTED. HOLD TUBE FDG WILL RECHECKED AFTER 2HRS. PICC LINE INTACT ON [place] ALL PORTS ARE PATENT. MIDLINE INTACT & PATENT ON LAC. SUCTIONED ORALLY OBTAINED MINIMAL AMT OF THICK BLOOD TINGED MUCOUS. REPOSITIONED W/ HOB ELEVATED.
[2020-05-18] MEDS: ATORVASTATIN 40 MG TABLET PEG SCH (20:35)
[2020-05-18] MEDS: MELATONIN 3 MG TABLET PEG SCH (20:35)
--- NOTE | 2020-05-18 22:00 | NUR ---
RECHECKED G-TUBE RESIDUAL 120CC STILL NOTED, TUBE FDG REMAINS ON HOLD.
[2020-05-19] VITALS (24 sets, daily range): BP systolic 95–142; BP diastolic 34–77
--- NOTE | 2020-05-19 | NUR ---
REPOSITIONED PT. KEPT HOB ELEVATED. RECHECKED RESIDUAL 20CC NOTED, RESUMED TUBE FDG @ 60CC/HR. PT REMAINS LETHARGIC.V/S STABLE.
[2020-05-19] MEDS: IPRATROPIUM BROMIDE 0.5 MG/2.5 ML NEBU NEB SCH ×6 (03:40→22:38)
[2020-05-19] MEDS: ALBUTEROL SULFATE 2.5 MG/3 ML NEBU NEB SCH ×6 (03:40→22:38)
--- NOTE | 2020-05-19 04:30 | NUR ---
AM CARE DONE. ORAL CARE DONE.
[2020-05-19] MEDS: GUAIFENESIN SUGAR FREE 100 MG/5 ML UDC PEG SCH ×6 (04:59→23:44)
[2020-05-19] MEDS: IV NORMAL SALINE 250 ML IV PRN (05:36)
[2020-05-19] MEDS: MEROPENEM 500 MG in IV NORMAL SALINE 50 ML IV SCH ×2 (05:52→16:42)
--- NOTE | 2020-05-19 06:00 | NUR ---
OFF TUBE FDG, TO RESUME @ 0800. INCREASED FIO2 TO 60%.
[2020-05-19] MEDS: ACETYLCYSTEINE 20% 800 MG/4 ML VIAL NEB SCH ×3 (07:57→22:38)
[2020-05-19] MEDS: levETIRAcetam IV 1,000 MG in IV DEXTROSE 5% 100 ML IV SCH ×2 (08:12→20:51)
[2020-05-19] MEDS: THIAMINE HCL 100 MG TABLET PEG SCH ×2 (08:12→20:43)
[2020-05-19] MEDS: ZINC SULFATE 220 MG CAPSULE PEG SCH (08:12)
[2020-05-19] MEDS: METOLAZONE 2.5 MG TABLET GT SCH (08:14)
[2020-05-19] MEDS: ASCORBIC ACID 500 MG TABLET PEG SCH ×2 (08:14→20:51)
[2020-05-19] MEDS: CHOLECALCIFEROL 1,000 UNIT TABLET PEG SCH (08:14)
[2020-05-19] MEDS: PANTOPRAZOLE SODIUM 40 MG VIAL IV SCH ×2 (08:16→20:44)
[2020-05-19] MEDS: ALLOPURINOL 100 MG TABLET PEG SCH (08:19)
[2020-05-19] MEDS: PROTEIN SUPPLEMENT (PROSTAT) 30 ML LIQUID PO SCH ×4 (08:22→20:51)
[2020-05-19] MEDS: Z GUARD REMEDY PASTE 57 GM TUBE TOP SCH ×2 (08:22→20:46)
[2020-05-19] MEDS: CLOTRIMAZOLE 1% CREAM 30 GM TUBE TOP SCH ×2 (08:22→20:52)
--- NOTE | 2020-05-19 08:30 | NUR ---
Doctor Garza in the unit to see patient.
--- NOTE | 2020-05-19 14:37 | NUR ---
Doctor bertram on the phone will order for morning labs. ordered to give a dose of Imodium for diarrhea.
[2020-05-19] MEDS: LOPERAMIDE HCL 1 MG/5 ML UDC PO PRN ×2 (16:42→20:43)
[2020-05-19] MEDS: ATORVASTATIN 40 MG TABLET PEG SCH (20:44)
[2020-05-19] MEDS: MELATONIN 3 MG TABLET PEG SCH (20:44)
[2020-05-20] VITALS (23 sets, daily range): BP systolic 104–142; BP diastolic 30–71
[2020-05-20] MEDS: GUAIFENESIN SUGAR FREE 100 MG/5 ML UDC PEG SCH ×5 (04:00→20:16)
--- NOTE | 2020-05-20 04:00 | NUR ---
No cough held Robitussin.
[2020-05-20] MEDS: IPRATROPIUM BROMIDE 0.5 MG/2.5 ML NEBU NEB SCH ×6 (04:05→22:30)
[2020-05-20] MEDS: ALBUTEROL SULFATE 2.5 MG/3 ML NEBU NEB SCH ×6 (04:05→22:30)
[2020-05-20] MEDS: MEROPENEM 500 MG in IV NORMAL SALINE 50 ML IV SCH ×2 (05:46→19:08)
[2020-05-20] MEDS: IV NORMAL SALINE 250 ML IV PRN (05:46)
[2020-05-20 06:12] LABS: EOSINOPHILS # (AUTO) 0.1 K/uL (0.0-0.7); LYMPHOCYTES # (AUTO) 0.7 K/uL (20.0-40.0)
[2020-05-20 06:14] LABS: BASOPHILS # (AUTO) 0.1 K/uL (0.0-8.0); BASOPHILS % (AUTO) 0.3 % (0.0-2.0); EOSINOPHILS % (AUTO) 0.4 % (0.0-7.0); HEMATOCRIT 22.4 % (36.7-47.1); LYMPHOCYTES % (AUTO) 2.3 % (20.5-51.5); MEAN CORPUSCULAR HEMOGLOBIN 30.6 uug (23.8-33.4); MEAN CORPUSCULAR HGB CONC 32 g/dL (32.5-36.3); MEAN CORPUSCULAR VOLUME 96.1 fL (73.0-96.2); MONOCYTES # (AUTO) 2.1 K/uL (2.0-10.0); MONOCYTES % (AUTO) 7.1 % (0.0-11.0); NEUTROPHILS # (AUTO) 26.2 K/uL (1.8-8.9); NEUTROPHILS % (AUTO) 89.9 % (38.5-71.5); PLATELET COUNT (AUTO) 201 K/uL (152-348); WHITE BLOOD COUNT (AUTO) 29.1 K/uL (3.6-10.2)
[2020-05-20 06:32] LABS: HEMOGLOBIN 7.1 g/dL (12.5-16.3); RED BLOOD CELL COUNT(AUTO) 2.33 MIL/uL (4.06-5.63)
[2020-05-20 06:36] LABS: ALANINE AMINOTRANSFERASE 21 U/L (16-63); ALKALINE PHOSPHATASE 619 U/L (50-136); ASPARTATE AMINOTRANSFERASE 40 U/L (15-37); BILIRUBIN,TOTAL 0.3 mg/dL (0.2-1.0); CARBON DIOXIDE 32 mmol/L (21-32); CHLORIDE 104 mmol/L (98-107); CREATININE 2.1 mg/dL (0.6-1.3); GLUCOSE 131 mg/dL (74-106); MAGNESIUM 2.8 mg/dL (1.8-2.4); PHOSPHOROUS 6.7 mg/dL (2.5-4.9); POTASSIUM 4.3 mmol/L (3.5-5.1); TOTAL PROTEIN, SERUM 6.5 g/dL (6.4-8.2)
[2020-05-20 06:45] LABS: UREA NITROGEN, BLOOD 122 mg/dL (7-18)
[2020-05-20] MEDS: ALLOPURINOL 100 MG TABLET PEG SCH (07:54)
[2020-05-20] MEDS: ZINC SULFATE 220 MG CAPSULE PEG SCH (07:54)
[2020-05-20] MEDS: ASCORBIC ACID 500 MG TABLET PEG SCH (07:54)
[2020-05-20] MEDS: ACETYLCYSTEINE 20% 800 MG/4 ML VIAL NEB SCH ×3 (07:54→22:30)
[2020-05-20] MEDS: THIAMINE HCL 100 MG TABLET PEG SCH ×2 (07:55→20:16)
[2020-05-20] MEDS: CHOLECALCIFEROL 1,000 UNIT TABLET PEG SCH (07:56)
[2020-05-20] MEDS: PANTOPRAZOLE SODIUM 40 MG VIAL IV SCH (07:57)
[2020-05-20] MEDS: LOPERAMIDE HCL 1 MG/5 ML UDC PO PRN (07:57)
[2020-05-20] MEDS: METOLAZONE 2.5 MG TABLET GT SCH (07:58)
[2020-05-20] MEDS: PROTEIN SUPPLEMENT (PROSTAT) 30 ML LIQUID PO SCH ×4 (07:58→20:16)
[2020-05-20] MEDS: levETIRAcetam IV 1,000 MG in IV DEXTROSE 5% 100 ML IV SCH ×2 (07:58→21:11)
[2020-05-20] MEDS: CLOTRIMAZOLE 1% CREAM 30 GM TUBE TOP SCH ×2 (09:13→20:15)
[2020-05-20] MEDS: Z GUARD REMEDY PASTE 57 GM TUBE TOP SCH ×2 (09:13→20:15)
--- NOTE | 2020-05-20 09:51 | NUR ---
DOCTOR FINNEGAN CALLED FOR UPDATE. WILL WRITE ORDERS IN COMPUTER. NO TRANSFUSION TODAY WILL FOLLOW UP FOR NEED TOMORROW. WILL START IVF AND MONITOR LABS
[2020-05-20] MEDS ORDERED: EPOETIN ALFA 10,000 UNITS/ML VIAL SQ ONE (11:00)
[2020-05-20] MEDS: IV NS 1000 ML 1,000 ML IV PRN (12:58)
--- NOTE | 2020-05-20 14:20 | NUR ---
katerin ordered hida scan stat. obtained consent from conservator. and hida scan scheduled to go at 1630. patient is NPO.
--- NOTE | 2020-05-20 16:30 | NUR ---
patient taken down to hida scan. patient taken on monitor continuos pulse ox, non- rebreather, and patient suctioned prior to leaving.
--- NOTE | 2020-05-20 18:40 | NUR ---
PATIENT BACK FROM HIDA SCAN PATIENT TOLERATED VERY WELL WITH NON-REBREATHER PATIENT NOT TACHYPNEIC AND SATURATING 100% THE ENTIRE TIME IN HIDA SCAN.
--- NOTE | 2020-05-20 19:15 | NUR ---
Received patient in bed in semi-fowlers position. patient is on a NRM at 15l O2 sat @100%. Receiving PEG feeding Glucerna 1.2 @60/hr. F/C with poor urine output. Flexi-seal with liquid brown stool.
[2020-05-20] MEDS: ATORVASTATIN 40 MG TABLET PEG SCH (20:16)
[2020-05-21] VITALS (67 sets, daily range): BP systolic 67–149; BP diastolic 32–75
[2020-05-21] MEDS: GUAIFENESIN SUGAR FREE 100 MG/5 ML UDC PEG SCH ×6 (01:08→20:29)
[2020-05-21] MEDS: IPRATROPIUM BROMIDE 0.5 MG/2.5 ML NEBU NEB SCH ×6 (02:30→23:12)
[2020-05-21] MEDS: ALBUTEROL SULFATE 2.5 MG/3 ML NEBU NEB SCH ×6 (02:30→23:12)
[2020-05-21 05:07] LABS: BASOPHILS # (AUTO) 0.2 K/uL (0.0-8.0); BASOPHILS % (AUTO) 0.6 % (0.0-2.0); EOSINOPHILS # (AUTO) 0.2 K/uL (0.0-0.7); EOSINOPHILS % (AUTO) 0.8 % (0.0-7.0); HEMATOCRIT 24.1 % (36.7-47.1); HEMOGLOBIN 7.5 g/dL (12.5-16.3); LYMPHOCYTES # (AUTO) 0.8 K/uL (20.0-40.0); MEAN CORPUSCULAR HEMOGLOBIN 30.2 uug (23.8-33.4); MEAN CORPUSCULAR HGB CONC 31 g/dL (32.5-36.3); MEAN CORPUSCULAR VOLUME 96.9 fL (73.0-96.2); MONOCYTES # (AUTO) 1.9 K/uL (2.0-10.0); MONOCYTES % (AUTO) 7.6 % (0.0-11.0); NEUTROPHILS # (AUTO) 22.1 K/uL (1.8-8.9); PLATELET COUNT (AUTO) 226 K/uL (152-348); WHITE BLOOD COUNT (AUTO) 25.1 K/uL (3.6-10.2)
[2020-05-21 05:19] LABS: IRON, SERUM 16 ug/dL (50-175)
[2020-05-21 05:24] LABS: ALANINE AMINOTRANSFERASE 21 U/L (16-63); ALKALINE PHOSPHATASE 644 U/L (50-136); ASPARTATE AMINOTRANSFERASE 42 U/L (15-37); BILIRUBIN,TOTAL 0.3 mg/dL (0.2-1.0); CARBON DIOXIDE 31 mmol/L (21-32); CHLORIDE 104 mmol/L (98-107); CREATININE 2.2 mg/dL (0.6-1.3); GLUCOSE 134 mg/dL (74-106); MAGNESIUM 2.9 mg/dL (1.8-2.4); TOTAL PROTEIN, SERUM 6.9 g/dL (6.4-8.2)
[2020-05-21 05:32] LABS: RED BLOOD CELL COUNT(AUTO) 2.49 MIL/uL (4.06-5.63)
[2020-05-21 05:38] LABS: PHOSPHOROUS 8.4 mg/dL (2.5-4.9); UREA NITROGEN, BLOOD 133 mg/dL (7-18)
[2020-05-21 06:09] LABS: ABG BASE EXCESS 0.4 mmol/L; ABG HCO3 30.1 mmol/L; ABG PCO2 84.3 mmHg (35.0-45.0); ABG PH 7.171 (7.350-7.450); ABG PO2 232.1 mmHg (75.0-100.0); ABG SITE RIGHT RADIAL; ABG TOTAL HEMOGLOBIN 9.4 G/dL (13.5-18.0); COHb 0.3 % (0.5-1.5); MetHb 0.6 % (0.0-1.5); O2Hb 98.9 % (94.0-97.0)
--- NOTE | 2020-05-21 06:10 | NUR ---
Spoke with Dr. Kraus and relayed critical BUN, phosphorus, and albumin. he stated he will refer it to Dr. Diaz when he does rounds to decide the course of treatment.
--- NOTE | 2020-05-21 06:10 | NUR ---
Patient's ABGs have deteriorated with elevated CO2. RT placed patient back on BIPAP 16/6 rate of 20, Fio2 100%.
[2020-05-21] MEDS: MEROPENEM 500 MG in IV NORMAL SALINE 50 ML IV SCH ×2 (06:39→17:23)
[2020-05-21] MEDS: ACETYLCYSTEINE 20% 800 MG/4 ML VIAL NEB SCH ×3 (07:16→23:13)
[2020-05-21] MEDS: levETIRAcetam IV 1,000 MG in IV DEXTROSE 5% 100 ML IV SCH ×2 (08:00→20:51)
[2020-05-21] MEDS: FAMOTIDINE. 20 MG/2 ML VIAL IV SCH (08:00)
[2020-05-21] MEDS: PROTEIN SUPPLEMENT (PROSTAT) 30 ML LIQUID PO SCH ×4 (08:00→20:30)
[2020-05-21] MEDS: ALLOPURINOL 100 MG TABLET PEG SCH (08:00)
[2020-05-21] MEDS: THIAMINE HCL 100 MG TABLET PEG SCH ×2 (08:00→20:29)
[2020-05-21] MEDS: CHOLECALCIFEROL 1,000 UNIT TABLET PEG SCH (08:00)
[2020-05-21] MEDS: Z GUARD REMEDY PASTE 57 GM TUBE TOP SCH ×2 (08:01→20:30)
[2020-05-21] MEDS: CLOTRIMAZOLE 1% CREAM 30 GM TUBE TOP SCH ×2 (08:01→20:30)
--- NOTE | 2020-05-21 08:30 | NUR ---
Dr. Garza here to see pt. Full report given. New orders received.
[2020-05-21] MEDS: NOREPINEPHRINE BITARTRATE 8 MG in IV NORMAL SALINE 242 ML IV PRN ×2 (09:34→13:32)
[2020-05-21] MEDS: ALBUMIN HUMAN 25% 25 GM in PREMIXED 1 EACH IV SCH ×3 (09:37→21:48)
[2020-05-21] MEDS ORDERED: ALBUMIN HUMAN 25% 100 ML ONE ×2 (09:37→15:56)
[2020-05-21] MEDS: IV NS 1000 ML 1,000 ML IV PRN (10:41)
--- NOTE | 2020-05-21 10:55 | NUR ---
Spoke with Dr. Bedoya on the telephone and made aware regarding pt's low blood pressure. New orders received and carried out.
[2020-05-21] MEDS ORDERED: IV NS 1000 ML 1,000 ML IV ONE (11:00)
--- NOTE | 2020-05-21 11:07 | NUR ---
Spoke with Dr. Garza on the telephone and full report given regarding pt's episode of low blood pressure and desaturation in the 50's. At this time, saturation and blood pressure wnl. No intubation needed at this time per MD. Will continue to monitor pt.
[2020-05-21 11:09] LABS: ABG BASE EXCESS -5.7 mmol/L; ABG HCO3 29.2 mmol/L; ABG PCO2 190.8 mmHg (35.0-45.0); ABG PH 6.802 (7.350-7.450); ABG PO2 90.6 mmHg (75.0-100.0); ABG SITE RIGHT RADIAL; ABG TOTAL HEMOGLOBIN 7.1 G/dL (13.5-18.0); O2Hb 86.9 % (94.0-97.0); VENT MODE BIPAP
[2020-05-21] MEDS ORDERED: SUCCINYLCHOLINE CHLORIDE 200 MG/10 ML VIAL IV ONE (11:30)
[2020-05-21] MEDS ORDERED: ETOMIDATE 20 MG/10 ML VIAL IV ONE (11:30)
--- NOTE | 2020-05-21 11:35 | NUR ---
Pt intubated by ER Dr. Hurtado. IV Etomidate 20MG and IV Succinocholyine 120MG given during the procedure. Pt with ETT 7.5 at 23cm lip with ventilation settings as follows: AC-20, TV-500, 100% FiO2, and PEEP-5. VSS and pt saturating wnl. ABG to be done in 1 hr.
[2020-05-21] MEDS: PROPOFOL 100 ML IV PRN (11:38)
--- NOTE | 2020-05-21 11:42 | NUR ---
Radiology here for xray.
[2020-05-21 12:47] LABS: ABG BASE EXCESS -6.4 mmol/L; ABG HCO3 24.7 mmol/L; ABG PCO2 103.3 mmHg (35.0-45.0); ABG PH 6.996 (7.350-7.450); ABG PO2 105.7 mmHg (75.0-100.0); ABG SITE RIGHT RADIAL; ABG TOTAL HEMOGLOBIN 6.6 G/dL (13.5-18.0); COHb 1.1 % (0.5-1.5); MetHb 0.8 % (0.0-1.5); O2Hb 93.8 % (94.0-97.0); VENT MODE VENT - A/C; VT, ABG 500 mL
--- NOTE | 2020-05-21 13:33 | NUR ---
Spoke with Dr. Garaz on the telephone and reported ABG results on pt's vent settings. New orders received.
[2020-05-21] MEDS ORDERED: NOREPINEPHRINE BITARTRATE IV PRN (14:00)
[2020-05-21] MEDS ORDERED: NORMAL SALINE IV PRN (14:00)
[2020-05-21] MEDS: NOREPINEPHRINE BITARTRATE 32 MG in IV NORMAL SALINE 218 ML IV PRN (16:23)
[2020-05-21] MEDS: PHENYLEPHRINE IV 100 MG in IV NORMAL SALINE 240 ML IV PRN ×2 (16:36→23:02)
[2020-05-21 16:46] LABS: ABG BASE EXCESS -8.9 mmol/L; ABG HCO3 22.8 mmol/L; ABG PCO2 104.8 mmHg (35.0-45.0); ABG PH 6.955 (7.350-7.450); ABG PO2 56.9 mmHg (75.0-100.0); ABG SITE RIGHT RADIAL; ABG TOTAL HEMOGLOBIN 6.9 G/dL (13.5-18.0); COHb 0.4 % (0.5-1.5); MetHb 0.7 % (0.0-1.5); O2Hb 73.8 % (94.0-97.0); VENT MODE VENT - A/C; VT, ABG 500 mL
--- NOTE | 2020-05-21 16:56 | NUR ---
2nd ABG result post intubation called and notified to tripe washer Dr. Garza, results at this time RT in the unit and ABG results reviewed with him and right after orders for 1 amp of bicarb and increase Vent Rate 25. orders implemented.
[2020-05-21] MEDS ORDERED: SODIUM BICARBONATE 8.4% 50 MEQ/50 ML DISP.SYRIN IV ONE (17:15)
--- NOTE | 2020-05-21 17:25 | NUR ---
Elvis Isaac here to see pt. Full report given. No new orders received.
[2020-05-21] MEDS: SODIUM BICARBONATE 8.4% 100 MEQ in IV D5 1/2 NS 1000 ML 1,000 ML IV PRN (18:00)
--- NOTE | 2020-05-21 18:47 | NUR ---
PHARMACY CLINICAL NOTES (VANCOMYCIN DOSING) S: 74 yo male ; has been hospitalized for a long time and has been treated with merrem since 05/06, but has had constant leukocytosis. Today he was intubated again on diprivan drip and on 2 pressors (levophed and phenylephrine) . ID added Vancomycin as empiric treatment and for possible: Severe sepsis with shock MSOF, HCAP, poss aspirated===< cx + MSSA. O: BUN/SCR 133/2.2, wbc 25.1 temp 97.4, dosing wt 56 kg A/P: Due to compromised renal fxn and increase in scr; will dose vancomycin by fall of level , will administer one dose of 750 mg x 1. RX will order level on 05/23 0600 AM and will dose according to the results. Will continue to follow up
[2020-05-21] MEDS ORDERED: VANCOMYCIN IV 750 MG in IV DEXTROSE 5% 250 ML IV ONE (19:00)
--- NOTE | 2020-05-21 19:00 | NUR ---
RECEIVED PT ON CONTINUOUS VENT, ETT 7.5 SECURED APPROX. AT 23 CM LIP LINE.VIA ANCHOR FAST. BS COARSE, IN LINE TX GIVEN ORDERED FOLLOWED BY CPT TOLERATED. SUCTION PRN. VENT CHECKED, ALARMS WORKING WELL AND AUDIBLE. NO VENT CHANGES MADE AT THIS TIME. WILL CONTINUE TO MONITOR.
--- NOTE | 2020-05-21 19:15 | NUR ---
Received patient in bed in semifowler's position. Patient is currently intubated with a 7.5 ETT @23cm at the lip. Ventilator settings AC 25, Tidal volume 500, FiO2 100%, PEEP 5. Patient was intubated @ 1135 this morning following progressively worsening ABGs showing patient to be acutly hypercarbic and acidotic. Patient is currently on vasopressor support with levophed maxed @ 1mcg/kg/min, and neosynepherine also maxed @ 3mcg/kg/min. Blood pressure currently stable with SBP @ 115. Patient is also on D5 1/2 NS + 8.4% sodium bicarbonate running @ 70mL/Hr. Urine output is still minimal. No BM output in the flexiseal.
[2020-05-21] MEDS: ATORVASTATIN 40 MG TABLET PEG SCH (20:29)
[2020-05-22] VITALS (95 sets, daily range): BP systolic 115–140; BP diastolic 43–68
[2020-05-22] MEDS: GUAIFENESIN SUGAR FREE 100 MG/5 ML UDC PEG SCH ×7 (00:30→23:13)
[2020-05-22] MEDS: NOREPINEPHRINE BITARTRATE 32 MG in IV NORMAL SALINE 218 ML IV PRN ×3 (02:55→21:20)
[2020-05-22] MEDS: IPRATROPIUM BROMIDE 0.5 MG/2.5 ML NEBU NEB SCH ×6 (02:57→23:03)
[2020-05-22] MEDS: ALBUTEROL SULFATE 2.5 MG/3 ML NEBU NEB SCH ×6 (02:57→23:03)
[2020-05-22] MEDS: ALBUMIN HUMAN 25% 25 GM in PREMIXED 1 EACH IV SCH (03:32)
[2020-05-22 05:15] LABS: BASOPHILS # (AUTO) 0.3 K/uL (0.0-8.0)
[2020-05-22 05:16] LABS: BASOPHILS % (AUTO) 1.1 % (0.0-2.0); EOSINOPHILS % (AUTO) 0.2 % (0.0-7.0); LYMPHOCYTES # (AUTO) 1.3 K/uL (20.0-40.0); LYMPHOCYTES % (AUTO) 4.6 % (20.5-51.5); MEAN CORPUSCULAR HEMOGLOBIN 29.8 uug (23.8-33.4); MEAN CORPUSCULAR HGB CONC 30 g/dL (32.5-36.3); MEAN CORPUSCULAR VOLUME 98.1 fL (73.0-96.2); MONOCYTES # (AUTO) 2.7 K/uL (2.0-10.0); MONOCYTES % (AUTO) 9.6 % (0.0-11.0); NEUTROPHILS # (AUTO) 23.6 K/uL (1.8-8.9); NEUTROPHILS % (AUTO) 84.5 % (38.5-71.5); PLATELET COUNT (AUTO) 201 K/uL (152-348); WHITE BLOOD COUNT (AUTO) 27.9 K/uL (3.6-10.2)
[2020-05-22 05:27] LABS: CARBON DIOXIDE 27 mmol/L (21-32); CHLORIDE 105 mmol/L (98-107); CREATININE 2.4 mg/dL (0.6-1.3); GLUCOSE 169 mg/dL (74-106); MAGNESIUM 2.5 mg/dL (1.8-2.4); POTASSIUM 5.2 mmol/L (3.5-5.1)
[2020-05-22] MEDS: SODIUM BICARBONATE 8.4% 100 MEQ in IV D5 1/2 NS 1000 ML 1,000 ML IV PRN ×2 (05:58→20:57)
[2020-05-22] MEDS: MEROPENEM 500 MG in IV NORMAL SALINE 50 ML IV SCH ×2 (05:58→18:02)
[2020-05-22 06:07] LABS: UREA NITROGEN, BLOOD 134 mg/dL (7-18)
[2020-05-22 06:09] LABS: RED BLOOD CELL COUNT(AUTO) 1.84 MIL/uL (4.06-5.63)
[2020-05-22 06:10] LABS: HEMATOCRIT 18.1 % (36.7-47.1); HEMOGLOBIN 5.5 g/dL (12.5-16.3)
--- NOTE | 2020-05-22 07:00 | NUR ---
Called Dr. Diaz's office to report critical labs. no return phone call. Endorsed critical labs to oncoming nurse.
--- NOTE | 2020-05-22 07:30 | NUR ---
Dr. Diaz called and received orders to transfuse PRBC's.
[2020-05-22] MEDS: ACETYLCYSTEINE 20% 800 MG/4 ML VIAL NEB SCH ×3 (07:36→23:03)
[2020-05-22 07:56] LABS: ABG BASE EXCESS -3.8 mmol/L; ABG HCO3 23.7 mmol/L; ABG PCO2 61.1 mmHg (35.0-45.0); ABG PH 7.207 (7.350-7.450); ABG PO2 133.9 mmHg (75.0-100.0); ABG SITE RIGHT RADIAL; ABG TOTAL HEMOGLOBIN 5.5 G/dL (13.5-18.0); COHb 0.9 % (0.5-1.5); MetHb 0.9 % (0.0-1.5); O2Hb 96.9 % (94.0-97.0); VENT MODE VENT - A/C; VT, ABG 500 mL
[2020-05-22] MEDS: PROTEIN SUPPLEMENT (PROSTAT) 30 ML LIQUID PO SCH ×4 (08:07→20:49)
[2020-05-22] MEDS: FAMOTIDINE. 20 MG/2 ML VIAL IV SCH (08:08)
[2020-05-22] MEDS: CHOLECALCIFEROL 1,000 UNIT TABLET PEG SCH (08:08)
[2020-05-22] MEDS: THIAMINE HCL 100 MG TABLET PEG SCH ×2 (08:08→20:49)
[2020-05-22] MEDS: CLOTRIMAZOLE 1% CREAM 30 GM TUBE TOP SCH ×2 (08:09→20:49)
[2020-05-22] MEDS: Z GUARD REMEDY PASTE 57 GM TUBE TOP SCH ×2 (08:09→20:49)
[2020-05-22] MEDS: ALLOPURINOL 100 MG TABLET PEG SCH (08:09)
[2020-05-22 08:13] LABS: BASOPHILS % (MANUAL) 1 % (0-2); LYMPHOCYTES % (MANUAL) 6 % (20-40); MONOCYTES % (MANUAL) 9 % (2-10); NEUTROPHILS % (MANUAL) 84 % (42-75)
--- NOTE | 2020-05-22 09:02 | NUR ---
Pulmonary services Dr. Garza in the unit, full report given to Dr. Garza. See order history for new orders. Dr. Garza at bedside assessing patient.
[2020-05-22] MEDS: levETIRAcetam IV 1,000 MG in IV DEXTROSE 5% 100 ML IV SCH ×2 (09:10→20:49)
[2020-05-22] MEDS: SEVELAMER CARBONATE 800 MG POWD.PACK GT SCH ×3 (09:11→16:31)
--- NOTE | 2020-05-22 13:32 | NUR ---
[facility] Cath Lab Tech in the unit, full report given to Beronica. See order history for new orders.
--- NOTE | 2020-05-22 13:49 | NUR ---
PHARMACY CLINICAL NOTES (VANCOMYCIN DOSING) S: 74 yo male ; has been hospitalized for a long time and has been treated with merrem since 05/06, but has had constant leukocytosis. Yesterday he was intubated again on diprivan drip and on 2 pressors (levophed and phenylephrine) . ID resumed Vancomycin as empiric treatment and for possible: Severe sepsis with shock MSOF, HCAP, poss aspirated===< cx + MSSA. O: BUN/SCR 134/2.4 , wbc 27.9 temp 98.6, dosing wt 56 kg A/P: Due to compromised renal fxn and increase in scr; will continue to dose vancomycin by fall of level , Vancomycin [id number] was administered last night at 1900. Vancomycin random level is on order for tomorrow am. Will follow the level for further dosing.
[2020-05-22 14:17] LABS: ABG BASE EXCESS -3.1 mmol/L; ABG HCO3 24.8 mmol/L; ABG PCO2 61.8 mmHg (35.0-45.0); ABG PH 7.221 (7.350-7.450); ABG PO2 83.6 mmHg (75.0-100.0); ABG SITE RIGHT RADIAL; COHb 0.8 % (0.5-1.5); MetHb 0.6 % (0.0-1.5); O2Hb 93.5 % (94.0-97.0); VENT MODE VENT - A/C; VT, ABG 450 mL
--- NOTE | 2020-05-22 14:42 | NUR ---
Nephrology services Dr. Diaz in the unit, full report given. See order history for new orders.
[2020-05-22] MEDS ORDERED: BUMETANIDE 1 MG/4 ML VIAL IV ONE (17:45)
--- NOTE | 2020-05-22 19:15 | NUR ---
received patient , lethargic , d5 1/ 2 ns + na bicarb 70 ml / hr , vent settings ac 28 tv 450 p5 fio2% 90 , no fever , flexi , levophed 0. 64 mcg
--- NOTE | 2020-05-22 19:39 | NUR ---
Received pt on Sandoval vent with settings of AC 28, VT 450, FiO2 90%, Peep +5. Pt is intubated with a 7.5 ETT secured with anchor fast at approximately 23cm at the lip. No changes to vent settings made, pt tolerating vent settings well at this time. No signs of respiratory distress noted. Vent alarms functioning and audible. Will continue to monitor pt throughout shift.
--- NOTE | 2020-05-22 20:15 | NUR ---
skin is weeping , bumex 2 mg given , intake and output being monitored , currently on d5 12/01 + na bicarb 70 ml /hr Addendum: 05/22/20 at 2015 by HORACE HOWARD RN Amended: Links added.
--- NOTE | 2020-05-22 20:19 | NUR ---
loc being monitored , suction when applicable , will tolerate curent vent settings ac 28 tv 450 p 5 fio2 90 % , abg daily and cxr being monitored Addendum: 05/22/20 at 2019 by HORACE HOWARD RN Amended: Links added. Addendum: 05/22/20 at 2022 by HORACE HOWARD RN Amended: Links added. Addendum: 05/22/20 at 2026 by HORACE HOWARD RN Amended: Links added.
--- NOTE | 2020-05-22 20:23 | NUR ---
wbc level is being monitored currently no fever and on antibiotics , will responds to antibiotics Addendum: 05/22/20 at 2022 by HORACE HOWARD RN Amended: Links added. Addendum: 05/22/20 at 2026 by HORACE HOWARD RN Amended: Links added.
--- NOTE | 2020-05-22 20:26 | NUR ---
keeping the area dry and clean , on affected areaa , sacral , perianal , and z guard applied Addendum: 05/22/20 at 2026 by HORACE HOWARD RN Amended: Links added.
[2020-05-22] MEDS: ATORVASTATIN 40 MG TABLET PEG SCH (20:49)
--- NOTE | 2020-05-22 22:00 | NUR ---
no seizure noted , no fever , arousable in deep pain
[2020-05-23] VITALS (87 sets, daily range): BP systolic 107–139; BP diastolic 46–69
--- NOTE | 2020-05-23 01:57 | NUR ---
no seizure noted , no fever
[2020-05-23] MEDS: ALBUTEROL SULFATE 2.5 MG/3 ML NEBU NEB SCH ×6 (02:49→22:30)
[2020-05-23] MEDS: IPRATROPIUM BROMIDE 0.5 MG/2.5 ML NEBU NEB SCH ×6 (02:49→22:30)
[2020-05-23] MEDS: GUAIFENESIN SUGAR FREE 100 MG/5 ML UDC PEG SCH ×5 (04:00→20:52)
[2020-05-23 05:03] LABS: CARBON DIOXIDE 28 mmol/L (21-32); CHLORIDE 104 mmol/L (98-107); CREATININE 2.8 mg/dL (0.6-1.3); GLUCOSE 174 mg/dL (74-106); MAGNESIUM 2.3 mg/dL (1.8-2.4); POTASSIUM 4.9 mmol/L (3.5-5.1); VANCOMYCIN,RANDOM 21.4 ug/mL (18.0-26.0)
[2020-05-23] MEDS: MEROPENEM 500 MG in IV NORMAL SALINE 50 ML IV SCH ×2 (05:08→18:03)
[2020-05-23 05:10] LABS: BASOPHILS # (AUTO) 0.1 K/uL (0.0-8.0); BASOPHILS % (AUTO) 0.4 % (0.0-2.0); EOSINOPHILS # (AUTO) 0.1 K/uL (0.0-0.7); EOSINOPHILS % (AUTO) 0.3 % (0.0-7.0); HEMATOCRIT 22.9 % (36.7-47.1); LYMPHOCYTES # (AUTO) 0.9 K/uL (20.0-40.0); LYMPHOCYTES % (AUTO) 3.5 % (20.5-51.5); MEAN CORPUSCULAR HEMOGLOBIN 30.1 uug (23.8-33.4); MEAN CORPUSCULAR HGB CONC 32 g/dL (32.5-36.3); MONOCYTES # (AUTO) 2.2 K/uL (2.0-10.0); NEUTROPHILS # (AUTO) 21.1 K/uL (1.8-8.9); NEUTROPHILS % (AUTO) 86.8 % (38.5-71.5); PLATELET COUNT (AUTO) 174 K/uL (152-348); WHITE BLOOD COUNT (AUTO) 24.3 K/uL (3.6-10.2)
[2020-05-23 05:14] LABS: HEMOGLOBIN 7.3 g/dL (12.5-16.3); RED BLOOD CELL COUNT(AUTO) 2.41 MIL/uL (4.06-5.63)
[2020-05-23 05:25] LABS: PHOSPHOROUS 8.6 mg/dL (2.5-4.9); UREA NITROGEN, BLOOD 126 mg/dL (7-18)
--- NOTE | 2020-05-23 05:26 | NUR ---
MD AWARE OF BUN AND HGB AND PHOSPHORUS RESULTS THIS MORNING , NO SEIZURE NOTED , NO FEVER NOTED , LEVOPHED STILL RUNNING AT 0.64 MCG , IV OF D5 1/2 NS + NA BICARB AT 70 ML /HR , VENT STILL AT AC 28 TV 450 P 5 FIO2 AT 90 % , SUCTION ED WITH MINIMAL AMOUNT OF SECRETION WITH BLOOD TINGED VIA ORALLY AND ET ,
[2020-05-23 07:23] LABS: ABG BASE EXCESS -0.1 mmol/L; ABG HCO3 27.2 mmol/L; ABG PCO2 61.2 mmHg (35.0-45.0); ABG PH 7.266 (7.350-7.450); ABG SITE LEFT RADIAL; COHb 0.6 % (0.5-1.5); MetHb 0.5 % (0.0-1.5); O2Hb 96.1 % (94.0-97.0); VENT MODE VENT - A/C; VT, ABG 450 mL
[2020-05-23] MEDS: ACETYLCYSTEINE 20% 800 MG/4 ML VIAL NEB SCH ×3 (07:28→22:30)
--- NOTE | 2020-05-23 07:30 | NUR ---
Pulmonary Services Dr. Garza in the unit, full report given to Dr. Garza. See order history for new orders. Dr. suárez at bedside assessing patient.
--- NOTE | 2020-05-23 07:57 | NUR ---
Received pt on Sandoval vent with settings of AC 28, VT 450, FiO2 90%, Peep +5. Pt is intubated with a 7.5 ETT secured with anchor fast at approximately 23cm at the lip. ABG DONE at this time. No signs of respiratory distress noted. Vent alarms functioning and audible. Will continue to monitor pt throughout shift.
[2020-05-23] MEDS: SEVELAMER CARBONATE 800 MG POWD.PACK GT SCH ×3 (08:02→16:04)
[2020-05-23] MEDS: levETIRAcetam IV 1,000 MG in IV DEXTROSE 5% 100 ML IV SCH ×2 (08:03→20:50)
[2020-05-23] MEDS: ALLOPURINOL 100 MG TABLET PEG SCH (08:03)
[2020-05-23] MEDS: CHOLECALCIFEROL 1,000 UNIT TABLET PEG SCH (08:03)
[2020-05-23] MEDS: PROTEIN SUPPLEMENT (PROSTAT) 30 ML LIQUID PO SCH ×4 (08:03→20:53)
[2020-05-23] MEDS: FAMOTIDINE. 20 MG/2 ML VIAL IV SCH (08:03)
[2020-05-23] MEDS: THIAMINE HCL 100 MG TABLET PEG SCH ×2 (08:03→20:53)
[2020-05-23] MEDS: CLOTRIMAZOLE 1% CREAM 30 GM TUBE TOP SCH ×2 (08:04→20:53)
[2020-05-23] MEDS: Z GUARD REMEDY PASTE 57 GM TUBE TOP SCH ×2 (08:05→20:53)
--- NOTE | 2020-05-23 11:14 | NUR ---
Cardiology services Dr. Bedoya in the unit, full report given to Dr. Bedoya. see order history for new orders. Dr. Bedoya at bedside assessing patient.
[2020-05-23] MEDS: NOREPINEPHRINE BITARTRATE 32 MG in IV NORMAL SALINE 218 ML IV PRN ×2 (12:00→21:12)
[2020-05-23] MEDS: SODIUM BICARBONATE 8.4% 100 MEQ in IV D5 1/2 NS 1000 ML 1,000 ML IV PRN (13:06)
--- NOTE | 2020-05-23 13:14 | NUR ---
Attending physician DR. Lisbet Campbell in the unit to see and examine pt. and as stated by him "I spoke with DPOA and she will have a meeting with other director before taking a decision on terminal extubation and comfort care decision."
[2020-05-23] MEDS ORDERED: BUMETANIDE 1 MG/4 ML VIAL IV ONE (13:30)
--- NOTE | 2020-05-23 19:15 | NUR ---
RECEIVED PATIENT LETHARGIC , WITH MINIMAL SPONTANEOUS EYE OPENING TO DEEP PAIN , VENT SETTINGS OF AC 28 TV 450 P5 FIO2 80 % , NO FEVER , LEVOPHED AT 0.18 MCG , IV OF D51/ 2 NS + 100 MEQ OF NA BICARB RUNNING AT 70 ML / HR , PICC AND DID LINE LEFT UPPER ARM INTACT , SUCTIONED WITH SMALL AMOUNT OD SECRETIONS THRU ETT AND ORALLY . NO BLEEDING , WITH GENERALIZED SWELLING , SCROTUM ELEVATED WITH A TOWEL ,
--- NOTE | 2020-05-23 19:36 | NUR ---
Pt rec'd on Sandoval settings of A/C 28, VT 450, PEEP +5 and FIO2-80%. No resp. distress noted. 7.5 ETT is patent and secure at approx. 23cm at the lip. Pt to be monitored throughout the shift, PRN SX and adm'd resp neb txs and therapy per MD's orders. Sandoval alarm parameters have been checked and remain audible.
--- NOTE | 2020-05-23 20:00 | NUR ---
NO SEIZURE NOTED AT THIS TIME
[2020-05-23] MEDS: MICAFUNGIN SODIUM 100 MG in IV NORMAL SALINE 100 ML IV SCH (20:52)
[2020-05-23] MEDS: ATORVASTATIN 40 MG TABLET PEG SCH (20:52)
--- NOTE | 2020-05-23 21:26 | NUR ---
ITAL SIGNS BEING MONITORED CURRENTLY ON LEVOPHED AT 0..14 MCG , WILL BE ABLE TO WEAN OFF SLOWLY AND TOLERATE WITHOUT PRESSORS Addendum: 05/23/20 at 2125 by HORACE HOWARD RN Amended: Jared added. Addendum: 05/23/20 at 2127 by HORACE HOWARD RN Amended: Jared added. Addendum: 05/23/20 at 2128 by HORACE HOWARD RN Amended: Links added. Addendum: 05/23/20 at 2130 by HORACE HOWARD RN Amended: Links added.
--- NOTE | 2020-05-23 21:28 | NUR ---
SUCTIONED WHEN APPLICABLE WITH BE ABLE TO TOLERATE AND MAINTAIN PATENT AIRWAY WITH SUCTIONING WITH MINIMAL SECRETIONS , ABG DAILY AND WILL BE ABLE TO TOLERATE CURRENT VENT SETTINGS Addendum: 05/23/20 at 2127 by HORACE HOWARD RN Amended: Jared added. Addendum: 05/23/20 at 2128 by HORACE HOWARD RN Amended: Links added. Addendum: 05/23/20 at 2130 by HORACE HOWARD RN Amended: Links added.
--- NOTE | 2020-05-23 21:29 | NUR ---
TEMPERATURE BEING MONITORED , WILL BE ABLE TO MAINTAIN SKIN TEMPERATURE AND NOT DEVELOP FEVER , CURRENTLY ON ANTIBIOTICS OF MICAFUNGIN AND MEREPENEM, Addendum: 05/23/20 at 2129 by HORACE HOWARD RN Amended: Links added. Addendum: 05/23/20 at 2130 by HORACE HOWARD RN Amended: Links added.
--- NOTE | 2020-05-23 21:30 | NUR ---
INTAKE AND OUPUT BEING MONITORED AND KEEPING THE SKIN DRY AND CLEAN AND OFF LOADING Addendum: 05/23/20 at 2130 by HORACE HOWARD RN Amended: Links added.
--- NOTE | 2020-05-23 21:31 | NUR ---
BEING MONITORED FOR SEIZURE EPISODES , MAINTAINING PATENT AIRWAY AND CURRENTLY ON KEPPRA Addendum: 05/23/20 at 2131 by HORACE HOWARD RN Amended: Links added.
[2020-05-24] VITALS (38 sets, daily range): BP systolic 88–116; BP diastolic 39–60
--- NOTE | 2020-05-24 | NUR ---
no seizure noted , no fever , levophed currently at 0.1 mcg vs stable
[2020-05-24] MEDS: GUAIFENESIN SUGAR FREE 100 MG/5 ML UDC PEG SCH ×6 (00:42→20:10)
[2020-05-24] MEDS: IPRATROPIUM BROMIDE 0.5 MG/2.5 ML NEBU NEB SCH ×7 (01:50→22:41)
[2020-05-24] MEDS: ALBUTEROL SULFATE 2.5 MG/3 ML NEBU NEB SCH ×7 (01:50→22:41)
[2020-05-24 06:00] LABS: EOSINOPHILS # (AUTO) 0.1 K/uL (0.0-0.7); MONOCYTES # (AUTO) 1.5 K/uL (2.0-10.0)
[2020-05-24] MEDS: MEROPENEM 500 MG in IV NORMAL SALINE 50 ML IV SCH ×2 (06:00→18:00)
[2020-05-24 06:01] LABS: BASOPHILS # (AUTO) 0.2 K/uL (0.0-8.0); BASOPHILS % (AUTO) 0.9 % (0.0-2.0); CARBON DIOXIDE 30 mmol/L (21-32); CHLORIDE 103 mmol/L (98-107); CREATININE 3.2 mg/dL (0.6-1.3); EOSINOPHILS % (AUTO) 0.4 % (0.0-7.0); GLUCOSE 121 mg/dL (74-106); HEMATOCRIT 22.4 % (36.7-47.1); LYMPHOCYTES # (AUTO) 0.6 K/uL (20.0-40.0); LYMPHOCYTES % (AUTO) 2.5 % (20.5-51.5); MAGNESIUM 2.2 mg/dL (1.8-2.4); MEAN CORPUSCULAR HEMOGLOBIN 30.6 uug (23.8-33.4); MEAN CORPUSCULAR HGB CONC 32 g/dL (32.5-36.3); MEAN CORPUSCULAR VOLUME 94.9 fL (73.0-96.2); NEUTROPHILS # (AUTO) 22.3 K/uL (1.8-8.9); NEUTROPHILS % (AUTO) 90.2 % (38.5-71.5); PLATELET COUNT (AUTO) 156 K/uL (152-348); POTASSIUM 4.4 mmol/L (3.5-5.1); WHITE BLOOD COUNT (AUTO) 24.7 K/uL (3.6-10.2)
[2020-05-24 06:51] LABS: RED BLOOD CELL COUNT(AUTO) 2.36 MIL/uL (4.06-5.63)
[2020-05-24 06:54] LABS: PHOSPHOROUS 8.7 mg/dL (2.5-4.9); UREA NITROGEN, BLOOD 136 mg/dL (7-18)
[2020-05-24 06:55] LABS: HEMOGLOBIN 7.2 g/dL (12.5-16.3)
--- NOTE | 2020-05-24 07:30 | NUR ---
LEVOPHED DRIP IS OFF AT THIS TIME. SBP IS MAINTAINED IN THE HIGH 90'S TO LOW 100. PT IS OBTUNDED BUT RESPONSIVE TO SUCTIONING AND DEEP PAIN. HR IS V-PACING WITH UNDERLYING SINUS RHYTHM. MAIN IVF IS INFUSING WELL VIA MIDLINE IV SITE LEFT AC. ETT INTACT, ON MECHANICAL VENT AT AC-28 VT-450, PEEP-5, FIO2-80% AND SATURATING AT 95-98%. MINIMAL SECRETIOS. ORAL CARE AND CPT DONE BY RT. PT HAS GENERALIZED PITTING EDEMA +3 INCLUDING THE SCROTAL AREA, WITH THIRD SPACING ON THE LEFT ARM. ABDOMEN IS SLIGHTLY BIG BUT SOFT TO TOUCH. GT INTACT AND CLAMPED. LOW RESIDUAL AT THIS TIME. FLEXISEAL IN PLACE, DRAINING LIQUID BROWN STOOL MINIMAL AMOUNT.
[2020-05-24 07:37] LABS: ABG BASE EXCESS 0.8 mmol/L; ABG HCO3 28.5 mmol/L; ABG PCO2 65.4 mmHg (35.0-45.0); ABG PH 7.257 (7.350-7.450); ABG PO2 92.3 mmHg (75.0-100.0); ABG SITE RIGHT RADIAL; ABG TOTAL HEMOGLOBIN 8.4 G/dL (13.5-18.0); COHb 0.6 % (0.5-1.5); MetHb 0.4 % (0.0-1.5); O2Hb 94.8 % (94.0-97.0); VENT MODE VENT - A/C; VT, ABG 450 mL
[2020-05-24] MEDS: ACETYLCYSTEINE 20% 800 MG/4 ML VIAL NEB SCH ×3 (07:37→22:41)
--- NOTE | 2020-05-24 07:37 | NUR ---
Pt received in stable respiratory condition on current MD ordered settings of AC mode, rate of 28, +5, 80% FiO2. 7.5mm ETT, 23cm at lip line. Suctioned PRN. Airway is patent and secured. Oral care done. Tx given, tolerates well, no adverse reactions noted. No distress noted at this time. Will continue to monitor.
--- NOTE | 2020-05-24 08:30 | NUR ---
TEMPERATURE 9IS HYPOTHERMIC AT 94.1F. PLACED ON BEAR HUGGER AT MEDIUM HEAT AT 38C AND COVERED WITH BLANKET. SEEN AND EXAMINED BY DR CONSTANTINO WITH NEW ORDERS.
[2020-05-24] MEDS: SEVELAMER CARBONATE 800 MG POWD.PACK GT SCH ×3 (08:33→17:02)
[2020-05-24] MEDS: levETIRAcetam IV 1,000 MG in IV DEXTROSE 5% 100 ML IV SCH ×2 (08:34→21:14)
[2020-05-24] MEDS: PROTEIN SUPPLEMENT (PROSTAT) 30 ML LIQUID PO SCH ×4 (08:34→21:14)
[2020-05-24] MEDS: THIAMINE HCL 100 MG TABLET PEG SCH ×2 (08:37→21:13)
[2020-05-24] MEDS: FAMOTIDINE. 20 MG/2 ML VIAL IV SCH (08:37)
[2020-05-24] MEDS: CHOLECALCIFEROL 1,000 UNIT TABLET PEG SCH (08:38)
[2020-05-24] MEDS: ALLOPURINOL 100 MG TABLET PEG SCH (08:38)
[2020-05-24] MEDS: CLOTRIMAZOLE 1% CREAM 30 GM TUBE TOP SCH ×2 (08:42→21:14)
[2020-05-24] MEDS: Z GUARD REMEDY PASTE 57 GM TUBE TOP SCH ×2 (08:43→21:14)
--- NOTE | 2020-05-24 08:43 | NUR ---
PHARMACY CLINICAL NOTES (VANCOMYCIN DOSING) S: To continue vanco dosing for this 74 yo male as empiric treatment and for possible: Severe sepsis with shock MSOF, HCAP, poss aspirated===< cx + MSSA. 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 No dose shall be due today. Will check random level & HD status tomorrow and dose as needed. ,Will follow
--- NOTE | 2020-05-24 15:00 | NUR ---
SEEN AND EXAMINED BY DR VIEIRA WITH NEW ORDER TO DC MAIN IVF. PT'S HAS NO URINE OUTPUT.
--- NOTE | 2020-05-24 18:00 | NUR ---
SBP DROPPED IN THE 80'S. RESTARTED ON LEVOPHED AT 0.1MCG/MIN VIA PICC LINE. CALLED UP PHARMACY TO SEND A NEW BAG.
--- NOTE | 2020-05-24 18:15 | NUR ---
CARMNE DARDEN CALLED AND INFORMED THAT SHE DCD VANCO. ALSO ORDERED TO DC MIDLINE IV LINE AND SEND TIP FOR CULTURE.
--- NOTE | 2020-05-24 19:00 | NUR ---
Albumin, Meropenem, and Guaifenesin medications charted as non-administered in eMAR. Doses given and charted by previous shifts in physical chart due to computer downtime.
[2020-05-24] MEDS: NOREPINEPHRINE BITARTRATE 32 MG in IV NORMAL SALINE 218 ML IV PRN (19:15)
--- NOTE | 2020-05-24 19:15 | NUR ---
Received patient in bed in semifowler's position. Patient is currently intubated with a 7.5 ETT @23cm at the lip. Ventilator settings AC 28, Tidal volume 450, FiO2 80%, PEEP 5. Patient is currently on vasopressor support with levophed running @ 0.2mcg/kg/min. Blood pressure currently stable with SBP @ 115. Urine output is still minimal with 50ml output. 200mL BM output in the flexiseal.
[2020-05-24] MEDS: MICAFUNGIN SODIUM 100 MG in IV NORMAL SALINE 100 ML IV SCH (20:10)
[2020-05-24] MEDS ORDERED: BUMETANIDE 1 MG/4 ML VIAL IV ONE (20:30)
[2020-05-24] MEDS: ATORVASTATIN 40 MG TABLET PEG SCH (21:13)
[2020-05-25] VITALS (96 sets, daily range): BP systolic 87–145; BP diastolic 41–84
[2020-05-25] MEDS: GUAIFENESIN SUGAR FREE 100 MG/5 ML UDC PEG SCH ×6 (00:51→20:00)
[2020-05-25] MEDS: IPRATROPIUM BROMIDE 0.5 MG/2.5 ML NEBU NEB SCH ×6 (02:30→23:04)
[2020-05-25] MEDS: ALBUTEROL SULFATE 2.5 MG/3 ML NEBU NEB SCH ×6 (02:30→23:04)
[2020-05-25 04:57] LABS: BASOPHILS # (AUTO) 0.2 K/uL (0.0-8.0); BASOPHILS % (AUTO) 0.8 % (0.0-2.0); HEMATOCRIT 26.1 % (36.7-47.1); HEMOGLOBIN 8.4 g/dL (12.5-16.3); LYMPHOCYTES # (AUTO) 0.6 K/uL (20.0-40.0); LYMPHOCYTES % (AUTO) 2.3 % (20.5-51.5); MEAN CORPUSCULAR HEMOGLOBIN 30.7 uug (23.8-33.4); MEAN CORPUSCULAR HGB CONC 32 g/dL (32.5-36.3); MEAN CORPUSCULAR VOLUME 95.6 fL (73.0-96.2); MONOCYTES # (AUTO) 1.2 K/uL (2.0-10.0); MONOCYTES % (AUTO) 4.6 % (0.0-11.0); NEUTROPHILS # (AUTO) 23.1 K/uL (1.8-8.9); NEUTROPHILS % (AUTO) 92.3 % (38.5-71.5); PLATELET COUNT (AUTO) 159 K/uL (152-348); RED BLOOD CELL COUNT(AUTO) 2.73 MIL/uL (4.06-5.63)
[2020-05-25 05:13] LABS: CARBON DIOXIDE 31 mmol/L (21-32); CHLORIDE 101 mmol/L (98-107); CREATININE 3.6 mg/dL (0.6-1.3); GLUCOSE 123 mg/dL (74-106); MAGNESIUM 2.3 mg/dL (1.8-2.4); POTASSIUM 5.2 mmol/L (3.5-5.1)
[2020-05-25 05:15] LABS: UREA NITROGEN, BLOOD 146 mg/dL (7-18)
[2020-05-25 05:16] LABS: PHOSPHOROUS 9.3 mg/dL (2.5-4.9)
[2020-05-25] MEDS: MEROPENEM 500 MG in IV NORMAL SALINE 50 ML IV SCH ×2 (06:00→18:09)
[2020-05-25] MEDS: ACETYLCYSTEINE 20% 800 MG/4 ML VIAL NEB SCH ×3 (06:58→23:04)
[2020-05-25] MEDS: NOREPINEPHRINE BITARTRATE 32 MG in IV NORMAL SALINE 218 ML IV PRN ×2 (07:08→09:35)
[2020-05-25 07:13] LABS: ABG BASE EXCESS -0.2 mmol/L; ABG HCO3 27.7 mmol/L; ABG PCO2 65.1 mmHg (35.0-45.0); ABG PH 7.247 (7.350-7.450); ABG PO2 135.5 mmHg (75.0-100.0); ABG SITE RIGHT RADIAL; ABG TOTAL HEMOGLOBIN 9.1 G/dL (13.5-18.0); COHb 0.3 % (0.5-1.5); MetHb 0.3 % (0.0-1.5); VENT MODE VENT - A/C; VT, ABG 450 mL
--- NOTE | 2020-05-25 07:30 | NUR ---
RECIEVED PT LYING IN BED WITH HOB UP AT 30DEGREES. OBTUNDED BUT AROUSABLE TO PAINFUL STIMULI. PT IS EDEMATOUS ALL OVER AND BOTH ARMS ARE WEEPING FROM THIRD SPACING. HR IS VPACING, WITH UNDERLYING ST. PT ON LEVOPHED DRIP AT 0.2MCG/MIN VIA PICC LINE AND SBP MAINTAINED WELL. PT IS ON MECHANICAL VENT WITH AC-28. VT-450, PEEP-5, FIO2-80%.. SATURATING GOOD. STILL NPO.
[2020-05-25] MEDS: SEVELAMER CARBONATE 800 MG POWD.PACK GT SCH ×3 (08:11→16:38)
[2020-05-25] MEDS: PROTEIN SUPPLEMENT (PROSTAT) 30 ML LIQUID PO SCH ×4 (08:12→21:00)
[2020-05-25] MEDS: LOPERAMIDE HCL 1 MG/5 ML UDC PO PRN (08:17)
[2020-05-25] MEDS: ALLOPURINOL 100 MG TABLET PEG SCH (08:23)
[2020-05-25] MEDS: levETIRAcetam IV 1,000 MG in IV DEXTROSE 5% 100 ML IV SCH ×2 (08:23→21:02)
[2020-05-25] MEDS: FAMOTIDINE. 20 MG/2 ML VIAL IV SCH (08:23)
[2020-05-25] MEDS: THIAMINE HCL 100 MG TABLET PEG SCH ×2 (08:25→21:07)
[2020-05-25] MEDS: CHOLECALCIFEROL 1,000 UNIT TABLET PEG SCH (08:29)
[2020-05-25] MEDS: CLOTRIMAZOLE 1% CREAM 30 GM TUBE TOP SCH ×2 (08:29→21:02)
[2020-05-25] MEDS: Z GUARD REMEDY PASTE 57 GM TUBE TOP SCH ×2 (08:30→21:04)
--- NOTE | 2020-05-25 09:30 | NUR ---
RT PT FIO2 WAS TITRATED DOWN TO 70% PER MD REQUEST. PT TOLERATING AT THIS TIME NO DISTRESS NOTED ALARM ON AND AUDIBLE . RN AWARE. PT SPO2 95% AT THIS TIME.
--- NOTE | 2020-05-25 09:30 | NUR ---
SEEN AND EXAMINED BY DR CONSTANTINO WITH NEW ORDERS..
--- NOTE | 2020-05-25 10:30 | NUR ---
SEEN AND EXAMINED BY DR MOULTON, NO NEW ORDERS.
[2020-05-25] MEDS: ACETAMINOPHEN 650 MG/20.3 ML LIQUID UDC GT PRN (11:25)
[2020-05-25] MEDS: PROPOFOL 100 ML IV PRN (11:32)
--- NOTE | 2020-05-25 11:32 | NUR ---
PT'S RR IS TACHYPNEIC AT 40-50. AND HR UP TO 120. APPEARS DISCOMFIR. STARTED ON DIPRIVAN DRIP AT 5MCG/KG/MIN. PT IS MORE CALM.
--- NOTE | 2020-05-25 12:56 | NUR ---
Called and spoke with Lo Arriola @ [phone] and updated her that two RNs sign the consent for the pt's Jabari cath insertion for hemodialysis and she agreed since she verbally gave consent yesterday around 1:30pm. Lo was also updated that Dr. Garza was aware of her request to be updated on the pt's weaning process. Lo confirmed that Dr. Garza called her and she requested to have the pt's prognosis documented. Lo is requesting that Dr. Garza's notes be faxed to the office in order to present it to the pt's team on . Per Lo: she thinks that another POLST will be required. Xenia RN was updated.
--- NOTE | 2020-05-25 13:15 | NUR ---
DIALYSIS CATHETER PLACEMENT INSERTED ON THE RIGHT GROIN BY JANNETH PICC LINE SPECIALIST. CONSENT HAS BEEN OBTAINED AND COSIGNED. PT TOLERATED WELL.
--- NOTE | 2020-05-25 15:30 | NUR ---
HEMODILYSIS NURSE IN THE ROOM WITH ORDER TO DIALYZE PT.
--- NOTE | 2020-05-25 16:30 | NUR ---
PT TOLERATED HD WELL.
[2020-05-25] MEDS: GLUCERNA 1.2 1000ML LIQUID GT PRN (18:10)
--- NOTE | 2020-05-25 18:29 | NUR ---
Per MD notes, pt is on and off pressors. Pt is intubated. Renal labs elevated. Plan for hemodialysis. No plan for trach or PEG tube yet. Once pt is medically stable, recommend Nepro with Carbsteady with a goal rate of 40ml/hr x 22 hrs. This will provide 880mL total volume, 1584 kcals, 71gm protein, 639mL free water and will meet 100% estimated kcal and protein needs. Recommend start at 10ml/hr x 24 hrs and increase as tolerated. Addendum: 05/25/20 at [address] Amended: Links added.
--- NOTE | 2020-05-25 19:28 | NUR ---
Pt received in stable condition on current settings of AC mode, rate of 28, +5, 70% FiO2. 7.5mm ETT, 23cm at lip line. Suctioned PRN. Airway is patent and secured. Oral care done. Tx given, tolerates well, no adverse reactions noted. No distress noted at this time. Will continue to monitor.
--- NOTE | 2020-05-25 19:30 | NUR ---
Decrease FiO2 to 60%
[2020-05-25] MEDS: IV NORMAL SALINE 250 ML IV PRN (19:50)
--- NOTE | 2020-05-25 20:00 | NUR ---
Increased FiO2 back to 70% / low SaO2.
[2020-05-25] MEDS: MICAFUNGIN SODIUM 100 MG in IV NORMAL SALINE 100 ML IV SCH (20:06)
[2020-05-25] MEDS: ATORVASTATIN 40 MG TABLET PEG SCH (21:06)
--- NOTE | 2020-05-25 23:00 | NUR ---
Failed attempt to wean off Levophed.
[2020-05-26] VITALS (96 sets, daily range): BP systolic 87–146; BP diastolic 43–86
--- NOTE | 2020-05-26 00:01 | NUR ---
Held Robitussin / no cough.
[2020-05-26] MEDS: GUAIFENESIN SUGAR FREE 100 MG/5 ML UDC PEG SCH ×3 (03:19→08:28)
[2020-05-26] MEDS: IPRATROPIUM BROMIDE 0.5 MG/2.5 ML NEBU NEB SCH ×6 (03:22→23:21)
[2020-05-26] MEDS: ALBUTEROL SULFATE 2.5 MG/3 ML NEBU NEB SCH ×6 (03:22→23:21)
[2020-05-26] MEDS: MEROPENEM 500 MG in IV NORMAL SALINE 50 ML IV SCH ×2 (05:23→18:17)
[2020-05-26 05:39] LABS: CARBON DIOXIDE 30 mmol/L (21-32); CREATININE 2.9 mg/dL (0.6-1.3); GLUCOSE 136 mg/dL (74-106); MAGNESIUM 2.1 mg/dL (1.8-2.4); PHOSPHOROUS 7.3 mg/dL (2.5-4.9)
[2020-05-26 05:41] LABS: BASOPHILS # (AUTO) 0.2 K/uL (0.0-8.0); MEAN CORPUSCULAR HGB CONC 32 g/dL (32.5-36.3); MONOCYTES # (AUTO) 1.5 K/uL (2.0-10.0)
[2020-05-26 05:42] LABS: BASOPHILS % (AUTO) 0.8 % (0.0-2.0); EOSINOPHILS % (AUTO) 0.1 % (0.0-7.0); HEMATOCRIT 22.7 % (36.7-47.1); LYMPHOCYTES # (AUTO) 0.6 K/uL (20.0-40.0); LYMPHOCYTES % (AUTO) 3.1 % (20.5-51.5); MEAN CORPUSCULAR HEMOGLOBIN 30.7 uug (23.8-33.4); MEAN CORPUSCULAR VOLUME 95.8 fL (73.0-96.2); MONOCYTES % (AUTO) 7.2 % (0.0-11.0); NEUTROPHILS % (AUTO) 88.8 % (38.5-71.5); PLATELET COUNT (AUTO) 135 K/uL (152-348); WHITE BLOOD COUNT (AUTO) 20.3 K/uL (3.6-10.2)
[2020-05-26 05:43] LABS: CHLORIDE 105 mmol/L (98-107); RED BLOOD CELL COUNT(AUTO) 2.36 MIL/uL (4.06-5.63)
[2020-05-26 05:45] LABS: UREA NITROGEN, BLOOD 106 mg/dL (7-18)
[2020-05-26 05:47] LABS: HEMOGLOBIN 7.3 g/dL (12.5-16.3)
[2020-05-26 07:20] LABS: ABG BASE EXCESS -0.3 mmol/L; ABG HCO3 27.3 mmol/L; ABG PCO2 62.7 mmHg (35.0-45.0); ABG PH 7.257 (7.350-7.450); ABG PO2 91.5 mmHg (75.0-100.0); ABG SITE RIGHT RADIAL; ABG TOTAL HEMOGLOBIN 8.4 G/dL (13.5-18.0); COHb 0.8 % (0.5-1.5); MetHb 0.5 % (0.0-1.5); O2Hb 94.7 % (94.0-97.0); VENT MODE VENT - A/C 28; VT, ABG 450 mL
--- NOTE | 2020-05-26 07:30 | NUR ---
RECIEVED PT ON SEMI VICTOR'S, EYES CLOSED,AND NON-VERBAL. ETT INTACT AND MECHANICAL VENT IN PROGRESS, SETTING IS AC-28, VT-450, PEEP-5, FIO2-70%. HR IS STWITH OCCASSIONAL PACER BEATS. PT STILL ON LEVOPHED DRIP RUNNING AT 0.2MCG/MIN AND DIPRIVAN DRIP FOR SEDATION AT 5MCG/KG/MIN INFUSING WELL. PT APPEARS PEACEFUL. AFEBRILE. SATURATION IS 95-100%.
[2020-05-26] MEDS: ACETYLCYSTEINE 20% 800 MG/4 ML VIAL NEB SCH ×3 (07:32→23:21)
[2020-05-26] MEDS: SEVELAMER CARBONATE 800 MG POWD.PACK GT SCH ×3 (08:28→16:27)
[2020-05-26] MEDS: PROTEIN SUPPLEMENT (PROSTAT) 30 ML LIQUID PO SCH ×4 (08:28→21:09)
[2020-05-26] MEDS: FAMOTIDINE. 20 MG/2 ML VIAL IV SCH (08:46)
[2020-05-26] MEDS: ALLOPURINOL 100 MG TABLET PEG SCH (08:46)
[2020-05-26] MEDS: CHOLECALCIFEROL 1,000 UNIT TABLET PEG SCH (08:47)
[2020-05-26] MEDS: THIAMINE HCL 100 MG TABLET PEG SCH ×2 (08:47→21:09)
[2020-05-26] MEDS: CLOTRIMAZOLE 1% CREAM 30 GM TUBE TOP SCH ×3 (08:51→22:00)
[2020-05-26] MEDS: Z GUARD REMEDY PASTE 57 GM TUBE TOP SCH ×2 (08:52→21:17)
--- NOTE | 2020-05-26 09:00 | NUR ---
SEEN AND EXAMINED BY DR CONSTANTINO WITH NEW ORDERS.
[2020-05-26] MEDS: levETIRAcetam IV 1,000 MG in IV DEXTROSE 5% 100 ML IV SCH ×2 (09:31→21:10)
[2020-05-26] MEDS ORDERED: GUAIFENESIN SUGAR FREE 100 MG/5 ML UDC PEG PRN (10:30)
--- NOTE | 2020-05-26 10:30 | NUR ---
PT IS HAVING DIALYSIS IN THE ROOM NOW. PT IS TOLERATING WELL, ONE TIME LOW BP AND INCREASED THE LEVOPHED DOSE.
--- NOTE | 2020-05-26 10:31 | NUR ---
The pt's clinical inquiry progress notes for 05/25/20 faxed to Lo SIMMS and Bisi MCKAY at [facility] F:[phone] P:[phone]. Addendum: 05/26/20 at 1114 by DILLAN HOLDEN RN F:[phone]
[2020-05-26] MEDS: GLUCERNA 1.2 1000ML LIQUID GT PRN (11:22)
[2020-05-26] MEDS: IV NORMAL SALINE 250 ML IV PRN (11:40)
[2020-05-26] MEDS ORDERED: NEPRO 1000 ML GT PRN (12:15)
--- NOTE | 2020-05-26 13:15 | NUR ---
HD ENDED, TOTAL FLUID OUT IS 2300ML. TOLERATED WELL.
[2020-05-26] MEDS ORDERED: LOPERAMIDE HCL 1 MG/7.5 ML LIQUID GT PRN (15:15)
--- NOTE | 2020-05-26 16:00 | NUR ---
PT IS BREATHING FASTER AND HR UP TO 120B/MIN. INCREQASED DIPRIVAN DRIP TO 10MCG/KG/MIN. SBP IS HOLDING GODD.
[2020-05-26] MEDS ORDERED: NORMAL SALINE IV PRN (16:45)
[2020-05-26] MEDS ORDERED: NOREPINEPHRINE BITARTRATE IV PRN (16:45)
[2020-05-26] MEDS: NOREPINEPHRINE BITARTRATE 32 MG in IV NORMAL SALINE 218 ML IV PRN (18:37)
[2020-05-26] MEDS: MICAFUNGIN SODIUM 100 MG in IV NORMAL SALINE 100 ML IV SCH (19:32)
[2020-05-26] MEDS: ATORVASTATIN 40 MG TABLET PEG SCH (21:09)
[2020-05-27] VITALS (96 sets, daily range): BP systolic 85–134; BP diastolic 42–71
[2020-05-27] MEDS: PROPOFOL 100 ML IV PRN (02:20)
[2020-05-27] MEDS: ALBUTEROL SULFATE 2.5 MG/3 ML NEBU NEB SCH ×6 (03:31→22:54)
[2020-05-27] MEDS: IPRATROPIUM BROMIDE 0.5 MG/2.5 ML NEBU NEB SCH ×6 (03:31→22:53)
--- NOTE | 2020-05-27 04:00 | NUR ---
0200 - 0400 Attempted FiO2 60%; returned to 70%. Held tube feeding this shift / high residual.
[2020-05-27 05:30] LABS: BASOPHILS # (AUTO) 0.3 K/uL (0.0-8.0); BASOPHILS % (AUTO) 1.3 % (0.0-2.0); EOSINOPHILS # (AUTO) 0.1 K/uL (0.0-0.7); EOSINOPHILS % (AUTO) 0.7 % (0.0-7.0); HEMATOCRIT 23.1 % (36.7-47.1); LYMPHOCYTES # (AUTO) 0.8 K/uL (20.0-40.0); LYMPHOCYTES % (AUTO) 3.9 % (20.5-51.5); MEAN CORPUSCULAR HEMOGLOBIN 30.1 uug (23.8-33.4); MEAN CORPUSCULAR HGB CONC 31 g/dL (32.5-36.3); MEAN CORPUSCULAR VOLUME 97.8 fL (73.0-96.2); MONOCYTES # (AUTO) 2.1 K/uL (2.0-10.0); NEUTROPHILS % (AUTO) 84.1 % (38.5-71.5); PLATELET COUNT (AUTO) 122 K/uL (152-348); WHITE BLOOD COUNT (AUTO) 21.4 K/uL (3.6-10.2)
[2020-05-27 05:37] LABS: RED BLOOD CELL COUNT(AUTO) 2.36 MIL/uL (4.06-5.63)
[2020-05-27 05:39] LABS: HEMOGLOBIN 7.1 g/dL (12.5-16.3)
[2020-05-27 05:40] LABS: CARBON DIOXIDE 28 mmol/L (21-32); CHLORIDE 108 mmol/L (98-107); CREATININE 2.5 mg/dL (0.6-1.3); GLUCOSE 132 mg/dL (74-106); PHOSPHOROUS 5.2 mg/dL (2.5-4.9); POTASSIUM 3.9 mmol/L (3.5-5.1); UREA NITROGEN, BLOOD 78 mg/dL (7-18)
[2020-05-27] MEDS: MEROPENEM 500 MG in IV NORMAL SALINE 50 ML IV SCH ×2 (05:41→18:12)
[2020-05-27 06:32] LABS: LYMPHOCYTES % (MANUAL) 4 % (20-40); MONOCYTES % (MANUAL) 11 % (2-10); NEUTROPHILS % (MANUAL) 85 % (42-75)
[2020-05-27] MEDS: NOREPINEPHRINE BITARTRATE 32 MG in IV NORMAL SALINE 218 ML IV PRN ×2 (06:50→20:17)
[2020-05-27 07:45] LABS: ABG BASE EXCESS 0.9 mmol/L; ABG HCO3 28.3 mmol/L; ABG PCO2 63.1 mmHg (35.0-45.0); ABG PO2 86.4 mmHg (75.0-100.0); ABG SITE RIGHT RADIAL; COHb 1.1 % (0.5-1.5); MetHb 0.6 % (0.0-1.5); VENT MODE VENT - A/C; VT, ABG 450 mL
[2020-05-27] MEDS: ACETYLCYSTEINE 20% 800 MG/4 ML VIAL NEB SCH ×3 (07:53→22:54)
[2020-05-27] MEDS: FAMOTIDINE. 20 MG/2 ML VIAL IV SCH (08:04)
[2020-05-27] MEDS: PROTEIN SUPPLEMENT (PROSTAT) 30 ML LIQUID PO SCH ×4 (08:04→21:05)
[2020-05-27] MEDS: SEVELAMER CARBONATE 800 MG POWD.PACK GT SCH ×3 (08:04→16:51)
[2020-05-27] MEDS: ALLOPURINOL 100 MG TABLET PEG SCH (08:05)
[2020-05-27] MEDS: THIAMINE HCL 100 MG TABLET PEG SCH ×2 (08:05→21:04)
[2020-05-27] MEDS: CLOTRIMAZOLE 1% CREAM 30 GM TUBE TOP SCH ×2 (08:05→21:05)
[2020-05-27] MEDS: CHOLECALCIFEROL 1,000 UNIT TABLET PEG SCH (08:05)
[2020-05-27] MEDS: Z GUARD REMEDY PASTE 57 GM TUBE TOP SCH ×2 (08:05→21:05)
[2020-05-27] MEDS: levETIRAcetam IV 1,000 MG in IV DEXTROSE 5% 100 ML IV SCH ×2 (08:45→21:04)
--- NOTE | 2020-05-27 09:16 | NUR ---
Cardiology services Dr. Bond in the unit, full report given to Dr. Bond. No new orders. Dr. Bond at bedside assessing patient.
--- NOTE | 2020-05-27 09:55 | NUR ---
Nephrology services Dr. Diaz called, full report given. See order history for new orders.
--- NOTE | 2020-05-27 14:45 | NUR ---
HD finished patient tolerated well with no complications, 2L removed.
--- NOTE | 2020-05-27 19:15 | NUR ---
Received patient in bed in semifowler's position. Patient is currently intubated with a 7.5 ETT @23cm at the lip. Ventilator settings AC 28, Tidal volume 450, FiO2 70%, PEEP 5. Patient is currently on vasopressor support with levophed running @ 0.34mcg/kg/min. Blood pressure currently stable with SBP @ 115. Dialysis catheter in Right groin. Hemodialysis today removed 2L fluid. Urine output is still minimal with 50ml output. 100mL BM output in the flexiseal.
[2020-05-27] MEDS: MICAFUNGIN SODIUM 100 MG in IV NORMAL SALINE 100 ML IV SCH (19:42)
[2020-05-27] MEDS: ATORVASTATIN 40 MG TABLET PEG SCH (21:04)
[2020-05-28] VITALS (93 sets, daily range): BP systolic 75–142; BP diastolic 38–73
[2020-05-28 05:00] LABS: BASOPHILS # (AUTO) 0.3 K/uL (0.0-8.0); EOSINOPHILS # (AUTO) 0.1 K/uL (0.0-0.7); LYMPHOCYTES # (AUTO) 0.8 K/uL (20.0-40.0); MEAN CORPUSCULAR VOLUME 97.7 fL (73.0-96.2); MONOCYTES # (AUTO) 2.3 K/uL (2.0-10.0)
[2020-05-28 05:02] LABS: BASOPHILS % (AUTO) 1.3 % (0.0-2.0); EOSINOPHILS % (AUTO) 0.4 % (0.0-7.0); HEMATOCRIT 23.4 % (36.7-47.1); LYMPHOCYTES % (AUTO) 3.2 % (20.5-51.5); MEAN CORPUSCULAR HEMOGLOBIN 30.3 uug (23.8-33.4); MEAN CORPUSCULAR HGB CONC 31 g/dL (32.5-36.3); MONOCYTES % (AUTO) 9.2 % (0.0-11.0); NEUTROPHILS # (AUTO) 21.6 K/uL (1.8-8.9); NEUTROPHILS % (AUTO) 85.9 % (38.5-71.5); PLATELET COUNT (AUTO) 123 K/uL (152-348); WHITE BLOOD COUNT (AUTO) 25.2 K/uL (3.6-10.2)
[2020-05-28 05:06] LABS: CARBON DIOXIDE 32 mmol/L (21-32); CHLORIDE 112 mmol/L (98-107); CREATININE 2.1 mg/dL (0.6-1.3); GLUCOSE 136 mg/dL (74-106); MAGNESIUM 1.9 mg/dL (1.8-2.4); PHOSPHOROUS 4.8 mg/dL (2.5-4.9); UREA NITROGEN, BLOOD 60 mg/dL (7-18)
[2020-05-28 05:09] LABS: HEMOGLOBIN 7.3 g/dL (12.5-16.3); RED BLOOD CELL COUNT(AUTO) 2.39 MIL/uL (4.06-5.63)
[2020-05-28] MEDS: IPRATROPIUM BROMIDE 0.5 MG/2.5 ML NEBU NEB SCH ×6 (05:21→23:08)
[2020-05-28] MEDS: ALBUTEROL SULFATE 2.5 MG/3 ML NEBU NEB SCH ×6 (05:21→23:08)
--- NOTE | 2020-05-28 07:15 | NUR ---
Received report from physics teacher nurse, patient in bed eyes open, responsive to painful stimuli. ETT 7.5 23cm at lip, A/c Fio2 70%, Peep 5, TV 450. Sinus tachycardia on the monitor and 4+ edema on lower extremities and 3+ on upper extremities, scrotal swelling and generalized edema. Scd's on, air mattress inflated, petit has no urine, and rectal tube with liquid stool noted. Bed in low position, side rails up x2. Alarms checked.
[2020-05-28] MEDS: NOREPINEPHRINE BITARTRATE 32 MG in IV NORMAL SALINE 218 ML IV PRN ×3 (07:18→19:31)
[2020-05-28 07:54] LABS: ABG BASE EXCESS 2.6 mmol/L; ABG HCO3 29.7 mmol/L; ABG PH 7.312 (7.350-7.450); ABG PO2 71.4 mmHg (75.0-100.0); ABG SITE RIGHT RADIAL; ABG TOTAL HEMOGLOBIN 9.2 G/dL (13.5-18.0); COHb 0.9 % (0.5-1.5); MetHb 0.5 % (0.0-1.5); O2Hb 92.3 % (94.0-97.0); VENT MODE VENT - A/C 28; VT, ABG 450 mL
[2020-05-28] MEDS: ACETYLCYSTEINE 20% 800 MG/4 ML VIAL NEB SCH (08:01)
[2020-05-28] MEDS: SEVELAMER CARBONATE 800 MG POWD.PACK GT SCH ×3 (08:13→17:00)
[2020-05-28] MEDS: levETIRAcetam IV 1,000 MG in IV DEXTROSE 5% 100 ML IV SCH ×2 (08:15→20:46)
[2020-05-28] MEDS: CHOLECALCIFEROL 1,000 UNIT TABLET PEG SCH (08:16)
[2020-05-28] MEDS: THIAMINE HCL 100 MG TABLET PEG SCH ×2 (08:16→20:46)
[2020-05-28] MEDS: ALLOPURINOL 100 MG TABLET PEG SCH (08:16)
[2020-05-28] MEDS: FAMOTIDINE. 20 MG/2 ML VIAL IV SCH (08:16)
[2020-05-28] MEDS: PROTEIN SUPPLEMENT (PROSTAT) 30 ML LIQUID PO SCH ×4 (08:17→20:46)
[2020-05-28] MEDS: CLOTRIMAZOLE 1% CREAM 30 GM TUBE TOP SCH ×2 (08:18→20:46)
[2020-05-28] MEDS: Z GUARD REMEDY PASTE 57 GM TUBE TOP SCH ×2 (08:18→20:46)
--- NOTE | 2020-05-28 09:40 | NUR ---
Dr. Garza at bedside, full report given.
--- NOTE | 2020-05-28 11:00 | NUR ---
Dr. burden in unit to assess patient, full report given, orders received to change levophed to neosynephrine, d/c marisabel, aisha labs, dialysis tomorrow. Initiate tube feeding @20cc/hr and increase as tolerated.
--- NOTE | 2020-05-28 11:05 | NUR ---
Patient seen by Dr. Bedoya.
[2020-05-28] MEDS ORDERED: NEPRO 1000 ML GT PRN ×2 (11:15→11:25)
[2020-05-28] MEDS: PHENYLEPHRINE IV 100 MG in IV NORMAL SALINE 240 ML IV PRN ×2 (11:28→19:32)
[2020-05-28] MEDS: PROPOFOL 100 ML IV PRN (12:19)
--- NOTE | 2020-05-28 12:45 | NUR ---
Placed tube feeding on hold due to high residuals post starting new tube feeding. Will reassess in 1 hour.
--- NOTE | 2020-05-28 13:30 | NUR ---
Patient became tachypneic and appeared to be in distress triggering high pressures on the vent. Patient to be started back on propofol.
--- NOTE | 2020-05-28 13:45 | NUR ---
Residuals rechecked from G-tube, continues to be high, will hold feeding for 1 hour more.
--- NOTE | 2020-05-28 13:45 | NUR ---
Monitored g-tube residual and continues to be high. Will hold for 1 hour more.
[2020-05-28] MEDS ORDERED: LIDOCAINE HCL 2% 20 ML VIAL IJ ONE (14:45)
--- NOTE | 2020-05-28 14:45 | NUR ---
Monitored g-tube residual and continues to be high. Continue holding and will recheck in 1 hour.
--- NOTE | 2020-05-28 15:45 | NUR ---
Patient continues to have high residual despite having tube feeding held. Discontinued tube feeding at this time.
--- NOTE | 2020-05-28 18:56 | NUR ---
Patient continues on on Josiane vent ETT 7.5 at 23 cm, a/c 28, TV 450, Fio2 80%, Peep 5. Patient is tachycardic, petit removed, rectal tube in place, Air mattress inflated, Patient is now on Levophed and Neosynephrine. Patient frequently repositioned. Bed in low positoin, side rails up x2.
--- NOTE | 2020-05-28 19:04 | NUR ---
RECEIVED PT ON CHU VENT WITH GIVEN SETTINGS OF AC 28, VT 450, PEEP +5, FI02 80%. PATIENT IS INTUBATED WITH 7.5 ETT SECURED WITH AN ANCHOR FAST @ APPROX 23CM @ LIP. NO SIGNS OF RESP DISTRESS NOTED. VENT ALARMS ON AND AUDIBLE. WILL CONTINUE TO MONITOR PATIENT THROUGHOUT SHIFT.
--- NOTE | 2020-05-28 19:15 | NUR ---
Received patient in bed in semifowler's position. Patient is currently intubated with a 7.5 ETT @23cm at the lip. Ventilator settings AC 28, Tidal volume 450, FiO2 80%, PEEP 5. Patient is currently on vasopressor support with levophed running @ 0.14mcg/kg/min, and Neosynepherine running maxed @ 3mcg/kg/min. Blood pressure currently stable with SBP @ 115. Dialysis catheter in Right groin. No Hemodialysis today. Urine output is aneuric and petit removed. 300mL BM output in the flexiseal. Goal is to titrate down on the pressors over the night.
[2020-05-28] MEDS: MICAFUNGIN SODIUM 100 MG in IV NORMAL SALINE 100 ML IV SCH (19:30)
[2020-05-28] MEDS: ATORVASTATIN 40 MG TABLET PEG SCH (20:46)
[2020-05-29] VITALS (91 sets, daily range): BP systolic 75–147; BP diastolic 43–84
[2020-05-29] MEDS: ALBUTEROL SULFATE 2.5 MG/3 ML NEBU NEB SCH ×6 (03:09→23:42)
[2020-05-29] MEDS: IPRATROPIUM BROMIDE 0.5 MG/2.5 ML NEBU NEB SCH ×6 (03:09→23:42)
[2020-05-29 04:50] LABS: EOSINOPHILS # (AUTO) 0.1 K/uL (0.0-0.7); WHITE BLOOD COUNT (AUTO) 24.7 K/uL (3.6-10.2)
[2020-05-29 04:52] LABS: BASOPHILS # (AUTO) 0.2 K/uL (0.0-8.0); BASOPHILS % (AUTO) 0.8 % (0.0-2.0); EOSINOPHILS % (AUTO) 0.3 % (0.0-7.0); LYMPHOCYTES # (AUTO) 0.8 K/uL (20.0-40.0); LYMPHOCYTES % (AUTO) 3.3 % (20.5-51.5); MEAN CORPUSCULAR HEMOGLOBIN 30.2 uug (23.8-33.4); MEAN CORPUSCULAR HGB CONC 31 g/dL (32.5-36.3); MEAN CORPUSCULAR VOLUME 97.8 fL (73.0-96.2); MONOCYTES # (AUTO) 2.4 K/uL (2.0-10.0); MONOCYTES % (AUTO) 9.8 % (0.0-11.0); NEUTROPHILS # (AUTO) 21.2 K/uL (1.8-8.9); NEUTROPHILS % (AUTO) 85.8 % (38.5-71.5); PLATELET COUNT (AUTO) 109 K/uL (152-348)
[2020-05-29 04:58] LABS: CARBON DIOXIDE 29 mmol/L (21-32); CHLORIDE 113 mmol/L (98-107); CREATININE 2.5 mg/dL (0.6-1.3); GLUCOSE 82 mg/dL (74-106); MAGNESIUM 1.8 mg/dL (1.8-2.4); PHOSPHOROUS 4.7 mg/dL (2.5-4.9); POTASSIUM 3.6 mmol/L (3.5-5.1); UREA NITROGEN, BLOOD 77 mg/dL (7-18)
[2020-05-29] MEDS: PHENYLEPHRINE IV 100 MG in IV NORMAL SALINE 240 ML IV PRN ×3 (05:00→21:21)
[2020-05-29 05:04] LABS: RED BLOOD CELL COUNT(AUTO) 2.25 MIL/uL (4.06-5.63)
[2020-05-29 05:12] LABS: HEMOGLOBIN 6.8 g/dL (12.5-16.3)
--- NOTE | 2020-05-29 07:30 | NUR ---
Received PT on Sandoval vent with MD ordered vent settings of: AC mode, Rate of 28, Vt 450, +5, 80% FiO2. ETT tube 7.5mm secured by anchor fast 23cm at lip line. All alarms on and audible. Suctioned PRN. Tx given as ordered, no adverse reactions noted. No respiratory distress noted. Will continue to monitor.
[2020-05-29 07:41] LABS: ABG BASE EXCESS 0.8 mmol/L; ABG HCO3 27.8 mmol/L; ABG PCO2 59.7 mmHg (35.0-45.0); ABG PH 7.286 (7.350-7.450); ABG PO2 96.7 mmHg (75.0-100.0); ABG SITE RIGHT RADIAL; ABG TOTAL HEMOGLOBIN 7.8 G/dL (13.5-18.0); COHb 1.1 % (0.5-1.5); MetHb 0.4 % (0.0-1.5); O2Hb 95.8 % (94.0-97.0); VENT MODE VENT - A/C; VT, ABG 450 mL
[2020-05-29] MEDS: PROTEIN SUPPLEMENT (PROSTAT) 30 ML LIQUID PO SCH ×4 (08:18→21:22)
[2020-05-29] MEDS: SEVELAMER CARBONATE 800 MG POWD.PACK GT SCH ×3 (08:18→18:31)
[2020-05-29] MEDS: NOREPINEPHRINE BITARTRATE 32 MG in IV NORMAL SALINE 218 ML IV PRN (08:20)
[2020-05-29] MEDS: FAMOTIDINE 20 MG TABLET GT SCH (08:52)
[2020-05-29] MEDS: levETIRAcetam IV 1,000 MG in IV DEXTROSE 5% 100 ML IV SCH ×2 (08:52→21:22)
[2020-05-29] MEDS: THIAMINE HCL 100 MG TABLET PEG SCH ×2 (08:52→21:22)
[2020-05-29] MEDS: ALLOPURINOL 100 MG TABLET PEG SCH (08:52)
[2020-05-29] MEDS: CHOLECALCIFEROL 1,000 UNIT TABLET PEG SCH (08:54)
[2020-05-29] MEDS: CLOTRIMAZOLE 1% CREAM 30 GM TUBE TOP SCH ×2 (08:56→21:23)
[2020-05-29] MEDS: Z GUARD REMEDY PASTE 57 GM TUBE TOP SCH ×2 (08:57→21:24)
[2020-05-29 09:38] LABS: LYMPHOCYTES % (MANUAL) 4 % (20-40); MONOCYTES % (MANUAL) 12 % (2-10); NEUTROPHILS % (MANUAL) 84 % (42-75)
--- NOTE | 2020-05-29 14:00 | NUR ---
1 unit of blood transfusion given asw ordered. no reaction noted.
--- NOTE | 2020-05-29 17:30 | NUR ---
transfusion ended. tolerated well.
--- NOTE | 2020-05-29 19:45 | NUR ---
Receive pt on specialty bed, HOB elevated. Pt with ET tube on vent settings: AC 28, TV 450, PEPP 5, FIO2 70%. O2 sats up to 98%. ST on monitor. No acute distress noted. Pt on levophed and neosynephrine drip. Pt unable to follow commands, no cough reflex. Flexiseal intact and in place. Pt turned and repositioned. Continue plan fo care.
[2020-05-29] MEDS: NOREPINEPHRINE BITARTRATE 8 MG in IV NORMAL SALINE 242 ML IV PRN ×2 (20:04→20:20)
[2020-05-29] MEDS: MICAFUNGIN SODIUM 100 MG in IV NORMAL SALINE 100 ML IV SCH (20:39)
[2020-05-29] MEDS: ATORVASTATIN 40 MG TABLET PEG SCH (21:22)
[2020-05-29] MEDS ORDERED: BLOOD SUGAR DIAGNOSTIC 1 EACH STRIP VI SCH (22:00)
[2020-05-29] MEDS ORDERED: INSULIN REGULAR, HUMAN 300 UNIT/3 ML VIAL SQ PRN (22:00)
[2020-05-29] MEDS ORDERED: DEXTROSE 50% 50 ML DISP.SYRIN IV PRN (22:00)
[2020-05-29] MEDS: ACETAMINOPHEN 650 MG/20.3 ML LIQUID UDC GT PRN (23:38)
[2020-05-30] VITALS (87 sets, daily range): BP systolic 79–114; BP diastolic 48–76
[2020-05-30] MEDS: NOREPINEPHRINE BITARTRATE 8 MG in IV NORMAL SALINE 242 ML IV PRN ×3 (00:11→22:11)
--- NOTE | 2020-05-30 01:55 | NUR ---
PT ON CONT CHU VENT WITH 7.5 ET/TUBE, 23 LIP LINE, ANCHOR FAST MOVE EVERY TWO HOURS, PT DOES ASSIST ON A/C 28, FIO2 @ 70%, SUCTIONED LIGHT PALE YELL TINGE SECRETIONS, AND ORAL CARE, CHANGE HME, CHECK CUFF, NO VENT CHANGES MADE, NEB INLINE X 3 TOLL WELL, ALL VENT ALARMS GOOD. Nerissa OROZCOP Addendum: 05/30/20 at 0157 by MEGHAN HER RT Amended: Links added.
[2020-05-30] MEDS: ALBUTEROL SULFATE 2.5 MG/3 ML NEBU NEB SCH ×6 (03:52→22:35)
[2020-05-30] MEDS: IPRATROPIUM BROMIDE 0.5 MG/2.5 ML NEBU NEB SCH ×6 (03:52→22:35)
[2020-05-30 05:25] LABS: BASOPHILS # (AUTO) 0.2 K/uL (0.0-8.0); BASOPHILS % (AUTO) 0.6 % (0.0-2.0); EOSINOPHILS % (AUTO) 0.1 % (0.0-7.0); HEMATOCRIT 30.7 % (36.7-47.1); HEMOGLOBIN 9.8 g/dL (12.5-16.3); LYMPHOCYTES # (AUTO) 0.8 K/uL (20.0-40.0); LYMPHOCYTES % (AUTO) 2.7 % (20.5-51.5); MEAN CORPUSCULAR HGB CONC 32 g/dL (32.5-36.3); MEAN CORPUSCULAR VOLUME 93.5 fL (73.0-96.2); MONOCYTES # (AUTO) 2.3 K/uL (2.0-10.0); MONOCYTES % (AUTO) 7.7 % (0.0-11.0); NEUTROPHILS # (AUTO) 26.5 K/uL (1.8-8.9); NEUTROPHILS % (AUTO) 88.9 % (38.5-71.5); PLATELET COUNT (AUTO) 91 K/uL (152-348); RED BLOOD CELL COUNT(AUTO) 3.28 MIL/uL (4.06-5.63); WHITE BLOOD COUNT (AUTO) 29.8 K/uL (3.6-10.2)
[2020-05-30 05:35] LABS: CARBON DIOXIDE 28 mmol/L (21-32); CHLORIDE 112 mmol/L (98-107); CREATININE 2.2 mg/dL (0.6-1.3); GLUCOSE 126 mg/dL (74-106); MAGNESIUM 1.7 mg/dL (1.8-2.4); POTASSIUM 3.7 mmol/L (3.5-5.1); UREA NITROGEN, BLOOD 56 mg/dL (7-18)
[2020-05-30] MEDS ORDERED: NOREPINEPHRINE BITARTRATE 4 MG/4 ML VIAL IV ONE (06:17)
[2020-05-30] MEDS ORDERED: PHENYLEPHRINE 10 MG/1 ML VIAL ONE (06:34)
--- NOTE | 2020-05-30 06:50 | NUR ---
AM care rendered. Pt tolerating current vent settings. O2 sats up to 98%. SR-ST on monitor. LEVOPHED and NEOSYNEPHRINE drip running. Pt turned and repositioned. Pt shows no s/s of acute distress noted. Continue antibiotic therapy. VSS, afebrile. Safety precautions maintained. Continue plan of care.
[2020-05-30] MEDS: PHENYLEPHRINE IV 100 MG in IV NORMAL SALINE 240 ML IV PRN ×3 (07:19→21:54)
[2020-05-30 07:20] LABS: ABG BASE EXCESS -1.5 mmol/L; ABG HCO3 26.3 mmol/L; ABG PCO2 60.7 mmHg (35.0-45.0); ABG PH 7.255 (7.350-7.450); ABG PO2 77.7 mmHg (75.0-100.0); ABG SITE RIGHT RADIAL; ABG TOTAL HEMOGLOBIN 10.7 G/dL (13.5-18.0); COHb 1.4 % (0.5-1.5); MetHb 0.4 % (0.0-1.5); O2Hb 92.9 % (94.0-97.0); VENT MODE VENT - A/C28; VT, ABG 450 mL
--- NOTE | 2020-05-30 07:30 | NUR ---
RECIEVED PT LYING IN BED, OBTUNDED BUT RESPONSIVE TO DEEP PAIN. HAS GENERALIZED WEAKNESS. HR IS SR -ST WITH OCCASSIONAL PACING. ON 2 VASOPRESSORS INFUSING ON [place] PICC LINE. LEVOPHED DRIP AT 0.08 MCG/MIN AND NEOSYNEPHRINE DRIP AT 3 MCG/MIN FOR SBP MAINTAINANCE TO KEEP ABOVE 90.
[2020-05-30 08:47] LABS: BAND % (MANUAL) 2 % (0-10); LYMPHOCYTES % (MANUAL) 2 % (20-40); MONOCYTES % (MANUAL) 9 % (2-10); NEUTROPHILS % (MANUAL) 87 % (42-75)
[2020-05-30] MEDS: ALLOPURINOL 100 MG TABLET PEG SCH (09:04)
[2020-05-30] MEDS: FAMOTIDINE 20 MG TABLET GT SCH (09:04)
[2020-05-30] MEDS: THIAMINE HCL 100 MG TABLET PEG SCH ×2 (09:06→21:50)
[2020-05-30] MEDS: levETIRAcetam IV 1,000 MG in IV DEXTROSE 5% 100 ML IV SCH ×2 (09:08→21:48)
[2020-05-30] MEDS: CHOLECALCIFEROL 1,000 UNIT TABLET PEG SCH (09:10)
[2020-05-30] MEDS: SEVELAMER CARBONATE 800 MG POWD.PACK GT SCH ×3 (09:10→19:02)
[2020-05-30] MEDS: CLOTRIMAZOLE 1% CREAM 30 GM TUBE TOP SCH ×2 (09:14→21:51)
[2020-05-30] MEDS: Z GUARD REMEDY PASTE 57 GM TUBE TOP SCH ×2 (09:14→21:51)
[2020-05-30] MEDS: PROTEIN SUPPLEMENT (PROSTAT) 30 ML LIQUID PO SCH ×4 (09:15→21:50)
[2020-05-30] MEDS ORDERED: MAGNESIUM SULFATE/D5W 100 ML IV SCH (11:45)
--- NOTE | 2020-05-30 13:20 | NUR ---
Patient is unable to tolerate prone position. Patient having shortness of breath and started to desaturate into the 80's. Will attempt to prone again in the evening if tolerates.
--- NOTE | 2020-05-30 17:15 | NUR ---
pt rec'd on hester vent, orally intubated tolerating settings well, no distress noted. inline neb tx's given per MD order. Sxn'ing performed Q2, oral care performed. no vent changed made during shift. cont with current RT plan of care. cont to monitor and report any changes.
--- NOTE | 2020-05-30 19:15 | NUR ---
received patient , lethargic on vent settings of ac 28 tv 450 p 5 fio2of 70 % , levophed at 0. 26 mcg , neosynephrine at 3 mcg , residual of gt , 120 ml , , generalized swelling , on flexi seal , no petit ,picc line intact
[2020-05-30] MEDS: MICAFUNGIN SODIUM 100 MG in IV NORMAL SALINE 100 ML IV SCH (21:48)
[2020-05-30] MEDS: ATORVASTATIN 40 MG TABLET PEG SCH (21:50)
--- NOTE | 2020-05-30 23:48 | NUR ---
abg done daily , titration of fio2% , tried to lower to 65 % , unable to tolerate , suction prn Addendum: 05/30/20 at 2348 by HORACE HOWARD RN Amended: Links added.
--- NOTE | 2020-05-30 23:52 | NUR ---
levophed on 0,28 mcg , neosynephrine 3 mcg , unable to wean off either one at this time , sbp is 104 / 50 Addendum: 05/30/20 at 2352 by HORACE HOWARD RN Amended: Links added.
--- NOTE | 2020-05-30 23:54 | NUR ---
gt residual check every 2 hours , feeding on hold , tolerating poorl Addendum: 05/30/20 at 2354 by HORACE HOWARD RN Amended: Links added.
--- NOTE | 2020-05-30 23:55 | NUR ---
keeping the area dry and clean , turning , every 2 hours , no further skin breakdown will develop during hospitaliztion Addendum: 05/30/20 at 2356 by HORACE HOWARD RN Amended: Links added.
[2020-05-31] VITALS (61 sets, daily range): BP systolic 87–129; BP diastolic 53–92
[2020-05-31] MEDS: IPRATROPIUM BROMIDE 0.5 MG/2.5 ML NEBU NEB SCH ×4 (02:38→15:01)
[2020-05-31] MEDS: ALBUTEROL SULFATE 2.5 MG/3 ML NEBU NEB SCH ×4 (02:38→15:01)
[2020-05-31 05:17] LABS: CARBON DIOXIDE 26 mmol/L (21-32); CHLORIDE 111 mmol/L (98-107); CREATININE 2.3 mg/dL (0.6-1.3); GLUCOSE 110 mg/dL (74-106); MAGNESIUM 1.9 mg/dL (1.8-2.4); POTASSIUM 3.4 mmol/L (3.5-5.1); UREA NITROGEN, BLOOD 65 mg/dL (7-18)
[2020-05-31] MEDS: NOREPINEPHRINE BITARTRATE 8 MG in IV NORMAL SALINE 242 ML IV PRN (06:29)
[2020-05-31] MEDS: PHENYLEPHRINE IV 100 MG in IV NORMAL SALINE 240 ML IV PRN (06:29)
--- NOTE | 2020-05-31 07:00 | NUR ---
LETHARGIC , ON LEVOPHED 0.1 MCG , NEOSYNEPHRINE 3 MCG, VENT AC 28 TV 450 , P5 70 % FIO2 % , NO FEVER , NO SEIZURE NOTED , VENANCIO CATH RIGHT GROIN INTACT , PICCLINE JUAN ARM INTACT
[2020-05-31] MEDS ORDERED: POTASSIUM CHLORIDE 20 MEQ POWDER PACKET GT ONE (08:15)
[2020-05-31] MEDS: SEVELAMER CARBONATE 800 MG POWD.PACK GT SCH ×2 (08:56→12:58)
[2020-05-31] MEDS: levETIRAcetam IV 1,000 MG in IV DEXTROSE 5% 100 ML IV SCH (08:57)
[2020-05-31] MEDS: PROTEIN SUPPLEMENT (PROSTAT) 30 ML LIQUID PO SCH ×2 (08:57→12:59)
[2020-05-31] MEDS: CHOLECALCIFEROL 1,000 UNIT TABLET PEG SCH (08:58)
[2020-05-31] MEDS: THIAMINE HCL 100 MG TABLET PEG SCH (09:00)
[2020-05-31] MEDS: ALLOPURINOL 100 MG TABLET PEG SCH (09:00)
[2020-05-31] MEDS: FAMOTIDINE 20 MG TABLET GT SCH (09:01)
[2020-05-31] MEDS: Z GUARD REMEDY PASTE 57 GM TUBE TOP SCH (09:03)
[2020-05-31] MEDS: CLOTRIMAZOLE 1% CREAM 30 GM TUBE TOP SCH (09:04)
--- NOTE | 2020-05-31 09:08 | NUR ---
0851am: Received a call from Lo Arriola RN, and was informed that she will have a IDT meeting today hopefully and decide on the pt's POLST reconsideration. Per Lo: she has requested the pt's latest progress notes, especially Dr. Garza's progress notes. [id number] patient's most recent progress notes for May 30 and pharmaceutical sales notes for May 31 faxed to [facility] F:[phone] P:[phone] as requested by Lo SIMMS.
[2020-05-31 11:14] LABS: HEPATITIS B SURFACE AB Reactive (.); HEPATITIS B SURFACE AG Negative (Negative)
--- NOTE | 2020-05-31 13:00 | NUR ---
Dialysis finished at this time patient stable throughout dialysis. Total 1.8 liters out.
--- NOTE | 2020-05-31 13:58 | NUR ---
MALINI IVY CALLED AND INFORMED ME THAT SHE SPOKE WITH DR CONSTANTINO AND HAS DECIDED FOR NO FURTHER TREATMENT " NO DIALYSIS, NO PRESSORS, NO MORE VENTILATOR AND NO GT". SHE IS PREPARING THE PAPER WORK TO FORWARD NEW STATUS AND WILL FAX THE INFORMATION TO THE UNIT. Addendum: 05/31/20 at 1403 by MELITA PANDYA RN IVAN IVY
--- NOTE | 2020-05-31 14:46 | NUR ---
Called doctor bertram for update of decision from conservator and for orders. pending call back.
--- NOTE | 2020-05-31 15:01 | NUR ---
Spoke to Dr. Diaz regarding new status and orders received discontinue drips and lines and start morphine drip and any additional orders to be given when arrives.
[2020-05-31] MEDS ORDERED: MORPHINE SULFATE PF IV DRIP 100 MG in IV DEXTROSE 5% 96 ML IV PRN (15:15)
--- NOTE | 2020-05-31 15:30 | NUR ---
Called Lo @ [phone] and she verified comfort measures with morphine drip, DC all treatment and stated that she will fax new updated POLST to both CCU and CM and will email as well.
[2020-05-31] MEDS ORDERED: DC PROPOFOL ONCE EXTUBATED XX PRN (16:30)
--- NOTE | 2020-05-31 17:13 | NUR ---
Noted IDT meeting 05/31- comfort measures and morphine drip. Addendum: 05/31/20 at [address] Amended: Links added.
--- NOTE | 2020-05-31 17:15 | NUR ---
Extubated pt at 1715. Placed on NRB mask. Addendum: 05/31/20 at 1730 by ANUEL FENG RT extubate pt at 1715 and Placed on 2LPM nasal cannula
--- NOTE | 2020-05-31 17:15 | NUR ---
patient extubated and morphine dripped started. pressors discontinued.
--- NOTE | 2020-05-31 18:15 | NUR ---
Patient apniec for 5 minutes, pupils are fixed and dilated, no audible heart tones, breath sounds for 1 minute. No palpable pulses for 1 minute. No corneal reflexes. patient pronounced at 1815. physicians notified.
== END 2020-05-31 19:20 | disposition expired | DRG 720 ==
LOC: ER 17:06 → TELE 20:36 → TELE3 04-10 20:35 → CCU 04-19 13:31 → TELE3 04-27 01:15 → MEDSURG3 04-30 13:49 → TELE3 05-05 16:35 → CCU 05-06 13:37
PROVIDERS: ADMIT Internal Medicine Nephrology; ATTEND Internal Medicine Nephrology
PROC: 05HY33Z Insertion of Infusion Device into Upper Vein, Percutaneous Approach (ICD-10-PCS; 2020-04-10)
PROC: 02HV33Z Insertion of Infusion Device into Superior Vena Cava, Percutaneous Approach (ICD-10-PCS; 2020-04-20)
PROC: B548ZZA Ultrasonography of Superior Vena Cava, Guidance (ICD-10-PCS; 2020-04-20)
PROC: 30233N1 Transfusion of Nonautologous Red Blood Cells into Peripheral Vein, Percutaneous Approach (ICD-10-PCS; principal; 2020-05-01)
PROC: 0DH63UZ Insertion of Feeding Device into Stomach, Percutaneous Approach (ICD-10-PCS; principal; 2020-05-01)
PROC: 5A09457 Assistance with Respiratory Ventilation, 24-96 Consecutive Hours, Continuous Positive Airway Pressure (ICD-10-PCS; 2020-05-05)
PROC: 5A1955Z Respiratory Ventilation, Greater than 96 Consecutive Hours (ICD-10-PCS; 2020-05-21)
PROC: 0BH17EZ Insertion of Endotracheal Airway into Trachea, Via Natural or Artificial Opening (ICD-10-PCS; 2020-05-21)
PROC: 06HY33Z Insertion of Infusion Device into Lower Vein, Percutaneous Approach (ICD-10-PCS; 2020-05-25)
PROC: 5A1D70Z Performance of Urinary Filtration, Intermittent, Less than 6 Hours Per Day (ICD-10-PCS; 2020-05-25)
DX: A41.9 Sepsis, unspecified organism (principal); N17.0 Acute kidney failure with tubular necrosis; E43 Unspecified severe protein-calorie malnutrition; J15.211 Pneumonia due to Methicillin susceptible Staphylococcus aureus; J69.0 Pneumonitis due to inhalation of food and vomit; R40.2112 Coma scale, eyes open, never, at arrival to emergency department; R40.2212 Coma scale, best verbal response, none, at arrival to emergency department; R65.21 Severe sepsis with septic shock; J96.01 Acute respiratory failure with hypoxia; Z51.5 Encounter for palliative care; J96.02 Acute respiratory failure with hypercapnia; R13.10 Dysphagia, unspecified; E87.2 Acidosis; J98.11 Atelectasis; B37.49 Other urogenital candidiasis; K29.71 Gastritis, unspecified, with bleeding; I13.0 Hypertensive heart and chronic kidney disease with heart failure and stage 1 through stage 4 chronic kidney disease, or unspecified chronic kidney disease; I50.32 Chronic diastolic (congestive) heart failure; T17.990A Other foreign object in respiratory tract, part unspecified in causing asphyxiation, initial encounter; G40.901 Epilepsy, unspecified, not intractable, with status epilepticus; R40.2352 Coma scale, best motor response, localizes pain, at arrival to emergency department; N39.0 Urinary tract infection, site not specified; B96.20 Unspecified Escherichia coli [E. coli] as the cause of diseases classified elsewhere; Z16.12 Extended spectrum beta lactamase (ESBL) resistance; E78.5 Hyperlipidemia, unspecified; F03.90 Unspecified dementia, unspecified severity, without behavioral disturbance, psychotic disturbance, mood disturbance, and anxiety; F32.9 Major depressive disorder, single episode, unspecified; K21.9 Gastro-esophageal reflux disease without esophagitis; N40.1 Benign prostatic hyperplasia with lower urinary tract symptoms; Z87.01 Personal history of pneumonia (recurrent); N18.9 Chronic kidney disease, unspecified; I42.9 Cardiomyopathy, unspecified; I25.10 Atherosclerotic heart disease of native coronary artery without angina pectoris; E87.6 Hypokalemia; Z95.0 Presence of cardiac pacemaker; M10.9 Gout, unspecified; X58.XXXA Exposure to other specified factors, initial encounter; Y93.9 Activity, unspecified; Y92.89 Other specified places as the place of occurrence of the external cause; D64.9 Anemia, unspecified
CPT/HCPCS: 36415; 36569; 36600; 43761; 70030-TC; 71045; 74018; 78445; 83550; 83605; 83735; 84100; 85018; 85025; 85730; 86140; 86706; 86850; 86900; 86901; 86920; 87040; 87070; 87077; 87086; 87340; 87400; 90937; 93005; 93307; 93880; 94002; 94003; 94640; 94660; 94664; A4217; A4663; A9537; C9113; G0378; J0330; J0690; J0692; J0885; J1165; J1450; J1580; J1940; J1953; J2060; J2185; J2248; J2274; J2370; J2543; J2765; J3370; J3475; J3480; J3490; J3590; J7030; J7040; J7042; J7050; J7060; J7120; J8499; P9016-BL; P9021; P9047; U0003-CS